=== PATIENT | female | born 1935 | race Caucasian/White ===

== ENCOUNTER → 2016-12-15 | Emergency (ER) | payer BC ==
[~2016-12-15] MED LIST: ETOMIDATE 20 MG/10 ML AMPUL IVPUSH ONE; LIDOCAINE 1%/EPI 1:100000 (50 ML MULTI DOSE VIAL) ONE; LIDOCAINE HCL/PF 1% SDV 5ML VIAL ONE; LORAZEPAM CARPU-JECT 2 MG/ML DISP.SYRIN IVPUSH ONE; LORAZEPAM CARPU-JECT 2 MG/ML DISP.SYRIN ONE; PROPOFOL 100 ML IVPB SCH; PROPOFOL 100 ML ONE; RAPID SEQUENCE INTUBATION KIT NR ONE; SUCCINYLCHOLINE CHLORIDE 200 MG/10 ML VIAL IVPUSH ONE
--- NOTE | 2016-12-15 23:19 | PDOC ---
History of Present Illness - General History Source: Patient, EMS, Family Exam Limitations: No Limitations - History of Present Illness Initial Comments: 12/15/16 23:28 Patient is a 81 year old female with a significant past medical history of hypertension, Parkinsons disease, TIA, DM2, constipation and hyperlipidemia who presents to the ED via EMS s/p fall. Patient was found at the bottom of 5-6 stairs lying in shattered glass. Patient takes baby aspirin daily. She reports back of the neck pain. She denies LOC, fever, chills, nausea, vomiting, blurry vision or headche. PSH:Right endarterectomy, lung surgery <Jelena Felipe - Last Filed: 12/16/16 01:39> <Latia Griffiths - Last Filed: 12/16/16 01:58> - General Stated Complaint: FALL Time Seen by Provider: 12/15/16 23:10 Past History <Jelena Felipe - Last Filed: 12/16/16 01:39> - Past Medical History CVA: Yes Diabetes: Yes (TYPE II) HTN: Yes Hypercholesterolemia: Yes - Surgical History Abdominal Surgery: No Appendectomy: No Cardiac Surgery: Yes (R. Carotid endarterctomy) Cholecystectomy: No Lung Surgery: (2012) Neurologic Surgery: No Orthopedic Surgery: No - Psycho/Social/Smoking Cessation Hx Anxiety: Yes Suicidal Ideation: No Smoking Status: No Smoking History: Never smoked Have you smoked in the past 12 months: No Number of Cigarettes Smoked Daily: 0 Hx Alcohol Use: No Drug/Substance Use Hx: No Substance Use Type: None Hx Substance Use Treatment: No <Latia Griffiths - Last Filed: 12/16/16 01:58> - Past Medical History Allergies/Adverse Reactions: Allergies Allergy/AdvReac Type Severity Reaction Status Date / Time Iodinated Contrast Media - Allergy Intermediate Nausea Verified 12/16/16 01:14 Oral and Home Medications: Ambulatory Orders Aspirin [ASA -] 81 mg PO DAILY #0 tab.chew 05/28/12 Mirtazapine [Remeron -] 7.5 mg PO HS #0 tablet 05/28/12 Multivitamins [Multivit ([facility] Formulary)] 1 udtab PO DAILY #0 tab 05/28/12 Carbidopa/Levodopa [Carbidopa-Levo 50-200 Tab SA] 0.5 tab PO TID 05/12/14 Furosemide [Lasix -] 20 mg PO ASDIR 05/12/14 Isosorbide Dinitrate [Isordil -] 10 mg PO BID 05/12/14 Nebivolol HCl [Bystolic] 5 mg PO DAILY 05/12/14 Nifedipine ER [Procardia XL -] 30 mg PO DAILY 05/12/14 Simvastatin [Zocor -] 20 mg PO HS 05/12/14 Glipizide 5 mg PO DAILY 06/16/15 Ibuprofen [Advil -] 400 mg PO QID PRN 06/18/15 Ropinirole HCl [Requip -] 0.5 mg PO QID 06/18/15 Bisacodyl Suppository [Dulcolax Suppository -] 10 mg RC ONCE #1 supp.rect Docusate Sodium [Colace] 100 mg PO TID #90 capsule 04/11/16 Magnesium Citrate [Citrate of Magnesia] 300 ml PO ONCE #1 bottle 04/11/16 Polyethylene Glycol 3350 [Miralax 255 gm Btl] 17 gm PO DAILY PRN #1 bottle 04/11 Sitagliptin Phosphate [Januvia] 100 mg PO DAILY 12/15/16 Review of Systems - Review of Systems Able to Perform ROS?: Yes Comments:: 12/15/16 23:29 CONSTITUTIONAL: Absent: fever, chills, diaphoresis, generalized weakness, malaise, loss of appetite HEENT: Present: head bleeding Absent: rhinorrhea, nasal congestion, throat pain, throat swelling, difficulty swallowing, mouth swelling, ear pain, eye pain, visual Changes CARDIOVASCULAR: Absent: chest pain, syncope, palpitations, irregular heart rate, lightheadedness , peripheral edema RESPIRATORY: Absent: cough, shortness of breath, dyspnea with exertion, orthopnea, wheezing, stridor, hemoptysis GASTROINTESTINAL: Absent: abdominal pain, abdominal distension, nausea, vomiting, diarrhea, constipation, melena, hematochezia GENITOURINARY: Absent: dysuria, frequency, urgency, hesitancy, hematuria, flank pain, genital pain MUSCULOSKELETAL: Present: neck pain Absent: myalgia, arthralgia, joint swelling SKIN: Absent: rash, itching, pallor HEMATOLOGIC/IMMUNOLOGIC: Absent: easy bleeding, easy bruising, lymphadenopathy, frequent infections ENDOCRINE: Absent: unexplained weight gain, unexplained weight loss, heat intolerance, cold intolerance NEUROLOGIC: Absent: headache, focal weakness or paresthesias, dizziness, unsteady gait, seizure, mental status changes, bladder or bowel incontinence PSYCHIATRIC: Absent: anxiety, depression, suicidal or homicidal ideation, hallucinations. <Jelena eFlipe - Last Filed: 12/16/16 01:39> *Physical Exam - Physical Exam Comments: 12/16/16 00:27 GENERAL: +Initially the patient was awake and verbal. She was awake alert and appropriate. But then became totally unresponsive. HEENT: +significant scalp laceration, +head bandaged, hair clotted with blood. +3 cm deep linear lac temporal area with arterial pumper wound quickly closed with 3 nylon sutures. Upon arrival PERRLA, EOMI. NECK: +presented in C collar. Supple. Full ROM. No JVD. Carotid pulses 2+ and symmetric, without bruits. No thyromegaly. No lymphadenopathy. CARDIOVASCULAR: Regular rate and rhythm. No murmurs, rubs, or gallops. Distal pulses are 2+ and symmetric. PULMONARY: No evidence of respiratory distress. Lungs clear to auscultation bilaterally. No wheezing, rales or rhonchi. ABDOMINAL: Soft. Non-tender. Non-distended. No rebound or guarding. No organomegaly. Normoactive bowel sounds. MUSCULOSKELETAL +No obvious extremity deformity upon arrival, +significant scalp hemorrhage right temporal area. Normal range of motion at all joints. No CVA tenderness. EXTREMITIES: +pedal pulses present in all 4 extremities. No cyanosis. No clubbing. No edema. No calf tenderness. SKIN: Warm and dry. Normal capillary refill. No rashes. No jaundice. NEUROLOGICAL: Alert, awake and alert upon arrival. Patient then became totally unresponsive. <Jelena Felipe - Last Filed: 12/16/16 01:39> ED Treatment Course - LABORATORY CBC & Chemistry Diagram: 12/16/16 00:22 12/16/16 00:22 - RADIOLOGY Radiology Studies Ordered: 12/16/16 00:54 THIS IS A PRELIMINARY REPORT FROM IMAGING [employer]NAGER [employer] EXAM: Cervical spine without contrast COMPARISON: CT cervical spine June 16, 2015 FINDINGS: Negative for cervical fracture or malalignment. Enlarged thyroid. THIS DOCUMENT HAS BEEN ELECTRONICALLY SIGNED Antonio Wetson MD 12/16/16 00:56 THIS IS A PRELIMINARYREPORT FROM IMAGING MANAGER [employer]AGEMENT FINDINGS: Age-related involutional changes. 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 No visible acute infarct. Osseous structures are intact. However, there is minimal hyperdense material along the right frontal parafalcine region along and near the cortex. This was not present on the June 16, 2015 scan and probably represents a tiny right frontal hemorrhagic cortical contusion along with a minimal amount of subarachnoid blood. (Hyperdensities best seen on axial image 23/30, sagittal image 79/159, and coronal image 49/200) THIS DOCUMENT HAS BEEN ELECTRONICALLY SIGNED Antonio Weston MD <Jelena Felipe - Last Filed: 12/16/16 01:39> - LABORATORY CBC & Chemistry Diagram: 12/16/16 00:22 12/16/16 00:22 <Latia Griffiths - Last Filed: 12/16/16 01:58> Medical Decision Making - Critical Care Time Total Critical Care Time (minutes): 60 Critical Care Statement: The care of this patient involved high complexity decision making to prevent further life threatening deterioration of the patient 's condition and/or to evalute & treat vital organ system(s) failure or risk of failure. - Medical Decision Making 12/16/16 00:10 Initially the patient was awake alert and appropriate. Patient came in with superficial arterial bleed on scalp after being found by family at the bottom of the stairs. 3 nylon sutures were quickly placed During the procedure patient became pale and totally unresponsive Patient did not lose her VS, but to protected her airway she was intubated Code started at 11:39 PM Patient was Ambu bagged at 11:41 PM VS: BP 126/56 HR 73 11:46 20 mg of Etomidate pushed 11:49 100 mg of Succinylcholine pushed at 11:49 VS: BP 126/56 HR 73 11:51 Successfully intubated 11:52 VS: BP 109/63 HR 78 11:55 12/16/16 01:[address] was discussed with family and explained that the patient will need to be transferred to [facility]. Family refused [facility] transfer and requested [facility] Transfer[facility] 12/16/16 01:11 [facility] was contacted at 1:03 AM. Patient was accepted at [facility] by Dr. Adán Santos and will go to trauma bay. Awaiting ALS transfer. 12/16/16 01:34 ALS transportation arrives for transfer. <Jelena Felipe - Last Filed: 12/16/16 01:39> - Critical Care Time Total Critical Care Time (minutes): 60 Critical Care Statement: The care of this patient involved high complexity decision making to prevent further life threatening deterioration of the patient 's condition and/or to evalute & treat vital organ system(s) failure or risk of failure. - Medical Decision Making 12/16/16 01:45 81 yo female BIBA with c collar who was found at bottom of her stairs at home -initially she was responsive but became unresponsive and was intubated to protect her airway -also heavy arterial "pumper" on rt temporal area quickly sutured to stop brisk scalp bleed pt intubated w 7.5 ETT with positive end tital co2 , placed 23 cm at the lips,b/ l breath sounds,cxr done,pt's pulse ox 100% ct head + small right frontal hemorrhagic cortical contusion along with a minimal amount of subarachnoid blood ct scan of cervical spine was NEGATIVE for fracture or subluxation labs reveals vbh=063, leukocytosis 18.6 ,hbg=10, troponin normal - -family request pt be transferred to [facility]. Spoke w neurosurgeon DR Adán Santos who accepted the case to be transferred to trauma icu <Latia Griffiths - Last Filed: 12/16/16 01:58> *DC/Admit/Observation/Transfer - Attestations Scribe Attestion: 12/15/16 23:31 Documentation prepared by GLORIA Haider, acting as medical office representative for Latia Griffiths MD. <Jelena Felipe - Last Filed: 12/16/16 01:39> - Transfer to Acute Care Facility Receiving Facility: [facility]. Accepting Physician:: DR ADÁN SANTOS neurosurgery <Latia Griffiths - Last Filed: 12/16/16 01:58> Diagnosis at time of Disposition: Subarachnoid bleed, Fall (on) (from) other stairs and steps, initial encounter Syncope Qualifiers: Syncope type: unspecified Qualified Code(s): R55 - Syncope and collapse Laceration of scalp Qualifiers: Encounter type: initial encounter Qualified Code(s): S01.01XA - Laceration without foreign body of scalp, initial encounter - Discharge Dispostion Disposition: TRANSFER ACUTE CARE/OTHER HOSP - Referrals Referrals: Kyle Arias MD [Primary Care Provider] -
[2016-12-15 23:33] VITALS: TEMP 97.7; BMI 28.3
[2016-12-16 01:06] LABS: BASOPHIL 0.5 % (0-2.0); EOSINOPHIL 2.1 % (0-4.5); MCHC 31.9 g/dl (32.0-36.0); MEAN CELL VOLUME 81.3 fl (80-96); MEAN PLT VOLUME 8.6 fl (7.5-11.1); NEUTROPHILS 80.3 % (42.8-82.8); PLATELET COUNT 236 K/MM3 (134-434); RDW 15.1 % (11.6-15.6); WHITE BLOOD COUNT 18.6 K/mm3 (4.0-10.0)
[2016-12-16 01:19] VITALS: BP 112/56; PULSE 62
[2016-12-16 01:28] LABS: ALBUMIN 3.5 g/dl (3.4-5.0); ANION GAP 13 (8-16); BILIRUBIN,TOTAL 0.3 mg/dL (0.2-1.0); CALCIUM 8.8 mg/dL (8.5-10.1); CO2 24 mmol/L (21-32); CREATININE 0.8 mg/dL (0.55-1.02); GLUCOSE,RANDOM 188 mg/dL (74-106); SGOT/AST 20 U/L (15-37); SGPT/ALT 18 U/L (12-78); TOT PROT 6.2 g/dl (6.4-8.2)
[2016-12-16 01:31] LABS: ALK PHOS 57 U/L (45-117); TROPONIN I < 0.02 ng/ml (0.00-0.05)
[2016-12-16 01:38] LABS: INR 1.07 (0.82-1.09); PROTHROMBIN TIME (PATIENT) 11.8 SEC (9.98-11.88)
--- NOTE | 2016-12-16 02:23 | PDOC ---
*Physical Exam - Vital Signs Last Vital Signs Temp Pulse Resp BP Pulse Ox 97.7 F 62 14 112/56 100 12/15/16 23:28 12/16/16 01:18 12/16/16 01:18 12/16/16 01:18 12/16/16 01:18 ED Treatment Course - LABORATORY CBC & Chemistry Diagram: 12/16/16 00:22 12/16/16 00:22 - ADDITIONAL ORDERS Additional order review: Laboratory Results 12/16/16 12/16/16 00:22 00:22 INR 1.07 Sodium 140 Potassium 4.0 Chloride 103 Carbon Dioxide 24 Anion Gap 13 BUN 28 H Creatinine 0.8 Creat Clearance w eGFR > 60 Random Glucose 188 H D Calcium 8.8 Total Bilirubin 0.3 D AST 20 D ALT 18 D Alkaline Phosphatase 57 D Creatine Kinase 99 Troponin I < 0.02 Total Protein 6.2 L Albumin 3.5 12/16/16 00:22 RBC 3.85 MCV 81.3 MCHC 31.9 L RDW 15.1 MPV 8.6 Neutrophils % 80.3 D Lymphocytes % 13.3 D Monocytes % 3.8 Eosinophils % 2.1 D Basophils % 0.5 - RADIOLOGY Radiology Studies Ordered: Category Date Time Status CERVICAL SPINE CT W/O CONTR [CT] Stat CT Scan 12/16/16 00:[address] WITHOUT CONTRAST [CT] Stat CT Scan 12/16/16 00:00 Taken CHEST X-RAY PORTABLE* [RAD] Stat Radiology 12/16/16 00:08 Taken - Medications Given in the ED: ED Medications Discontinued Medications Generic Name Dose Route Start Last Admin Trade Name Freq PRN Reason Stop Dose Admin Etomidate 20 mg 12/16/16 01:21 12/16/16 01:27 Amidate - IVPUSH 12/16/16 01:22 20 mg ONCE ONE Administration Lorazepam 2 mg 12/16/16 01:20 12/16/16 01:27 Ativan Injection - IVPUSH 12/16/16 01:21 2 mg ONCE ONE Administration Succinylcholine Chloride 95 mg 12/16/16 01:22 12/16/16 01:27 Quelicin - IVPUSH 12/16/16 01:23 95 mg ONCE ONE Administration Medical Decision Making - Medical Decision Making 12/16/16 02:22 PT DID RECEIVE [facility] ROUTE *DC/Admit/Observation/Transfer Diagnosis at time of Disposition: Subarachnoid bleed, Fall (on) (from) other stairs and steps, initial encounter Syncope Qualifiers: Syncope type: unspecified Qualified Code(s): R55 - Syncope and collapse Laceration of scalp Qualifiers: Encounter type: initial encounter Qualified Code(s): S01.01XA - Laceration without foreign body of scalp, initial encounter - Discharge Dispostion Disposition: TRANSFER ACUTE CARE/OTHER HOSP - Referrals Referrals: Kyle Arias MD [Primary Care Provider] - - Patient Instructions - Post Discharge Activity
--- NOTE | 2016-12-16 12:43 | EKG ---
Test Reason : Blood Pressure : / mmHG Vent. Rate : 052 BPM Atrial Rate : 052 BPM P-R Int : 196 ms QRS Dur : 086 ms QT Int : 476 ms P-R-T Axes : -16 047 067 degrees QTc Int : 442 ms POOR DATA QUALITY, INTERPRETATION MAY BE ADVERSELY AFFECTED SINUS BRADYCARDIA NONSPECIFIC T WAVE ABNORMALITY ABNORMAL ECG WHEN COMPARED WITH ECG OF 28-MAY-2012 13:50, NONSPECIFIC T WAVE ABNORMALITY NO LONGER EVIDENT IN INFERIOR LEADS Confirmed by TABATHA KHAN MD ([id number]) on 12/16/2016 12:43:44 PM Referred By: Confirmed By:TABATHA KHAN MD
== END | disposition short-term general hospital (02) ==
LOC: JER 23:08
PROC: 0BH17EZ Insertion of Endotracheal Airway into Trachea, Via Natural or Artificial Opening (ICD-10-PCS; principal; 2016-12-15)
PROC: 0JQ00ZZ Repair Scalp Subcutaneous Tissue and Fascia, Open Approach (ICD-10-PCS; 2016-12-15)
PROC: 3E033NZ Introduction of Analgesics, Hypnotics, Sedatives into Peripheral Vein, Percutaneous Approach (ICD-10-PCS; 2016-12-15)
PROC: 3E033GC Introduction of Other Therapeutic Substance into Peripheral Vein, Percutaneous Approach (ICD-10-PCS; 2016-12-15)
DX: S06.6X0A Traumatic subarachnoid hemorrhage without loss of consciousness, initial encounter (principal); R55 Syncope and collapse; S01.01XA Laceration without foreign body of scalp, initial encounter; I10 Essential (primary) hypertension; E11.9 Type 2 diabetes mellitus without complications; Z79.84 Long term (current) use of oral hypoglycemic drugs; E78.5 Hyperlipidemia, unspecified; E78.00 Pure hypercholesterolemia, unspecified; Z86.73 Personal history of transient ischemic attack (TIA), and cerebral infarction without residual deficits; W10.8XXA Fall (on) (from) other stairs and steps, initial encounter; Y93.89 Activity, other specified; Y92.018 Other place in single-family (private) house as the place of occurrence of the external cause
CPT/HCPCS: 36415; 70450-TC; 71010-TC; 72125-TC; 80053; 82550; 84484; 85025; 85610; 86850; 86900; 86901; 93005; 93010; 99284-25

== ENCOUNTER 2017-03-11 12:51 | Emergency (ER) | payer BC ==
[2017-03-11] MEDS ORDERED: OXYCODONE/APAP 5/325MG COMBO TABLET PO ONE ×2 (12:58→14:35)
[2017-03-11] MEDS ORDERED: OXYCODONE/APAP 5/325MG COMBO TABLET ONE ×2 (13:05→14:38)
--- NOTE | 2017-03-11 13:05 | PDOC ---
History of Present Illness - General History Source: Patient, Family Exam Limitations: No Limitations - History of Present Illness Initial Comments: 03/11/17 13:05 81 year old female c/ hx of parkinson's disease, HTN, HLD, distant hx of subdural hematoma (not on anticoagulants) p/w fall. The patient had a mechanical fall yesterday onto her right arm. Denies head trauma or LOC. Reports pain in RUE but mostly in her right wrist. Pain worsened and pt came in today. Denies numbness, weakness. <Ananda Mortensen - Last Filed: 03/11/17 15:19> <Leti Roland - Last Filed: 03/11/17 15:53> - General Chief Complaint: Injury Stated Complaint: RIGHT WRIST PAIN Time Seen by Provider: 03/11/17 12:57 Past History - Past Medical History CVA: Yes Diabetes: Yes (TYPE II) HTN: Yes Hypercholesterolemia: Yes - Surgical History Abdominal Surgery: No Appendectomy: No Cardiac Surgery: Yes (R. Carotid endarterctomy) Cholecystectomy: No Lung Surgery: (2012) Neurologic Surgery: No Orthopedic Surgery: No - Psycho/Social/Smoking Cessation Hx Anxiety: Yes Suicidal Ideation: No Smoking Status: No Smoking History: Never smoked Have you smoked in the past 12 months: No Number of Cigarettes Smoked Daily: 0 Hx Alcohol Use: No Drug/Substance Use Hx: No Substance Use Type: None Hx Substance Use Treatment: No <Ananda Mortensen - Last Filed: 03/11/17 15:19> <Leti Roland - Last Filed: 03/11/17 15:53> - Past Medical History Allergies/Adverse Reactions: Allergies Allergy/AdvReac Type Severity Reaction Status Date / Time Iodinated Contrast Media - Allergy Intermediate Nausea Verified 12/16/16 01:14 Oral and Home Medications: Ambulatory Orders Multivitamins [Multivit ([facility] Formulary)] 1 udtab PO DAILY #0 tab 05/28/12 Carbidopa/Levodopa [Carbidopa-Levo 50-200 Tab SA] 0.5 tab PO QID 05/12/14 Furosemide [Lasix -] 20 mg PO ASDIR PRN 05/12/14 Isosorbide Dinitrate [Isordil -] 15 mg PO DAILY 05/12/14 Nifedipine ER [Procardia XL -] 30 mg PO DAILY 05/12/14 Simvastatin [Zocor -] 20 mg PO HS 05/12/14 Ibuprofen [Advil -] 400 mg PO QID PRN 06/18/15 Ropinirole HCl [Requip -] 0.5 mg PO TID 06/18/15 Polyethylene Glycol 3350 [Miralax 255 gm Btl] 17 gm PO DAILY PRN #1 bottle 04/11 Sitagliptin Phosphate [Januvia] 100 mg PO DAILY 12/15/16 Docusate Sodium [Colace] 100 mg PO TID PRN 03/11/17 Glimepiride 2 mg PO DAILY PRN 03/11/17 Metformin HCl 500 mg PO BID 03/11/17 Metoprolol Tartrate 25 mg PO BID 03/11/17 Oxycodone HCl/Acetaminophen [Percocet 5-325 mg Tablet] 1 tab PO Q6H PRN #15 tablet MDD 4 03/11/17 Review of Systems - Review of Systems Able to Perform ROS?: Yes Comments:: 03/11/17 13:10 GENERAL/CONSTITUTIONAL: No fever, weakness. HEAD, EYES, EARS, NOSE AND THROAT: No change in vision. No ear pain or discharge. No sore throat. CARDIOVASCULAR: No chest pain or shortness of breath. RESPIRATORY: No cough, wheezing, or hemoptysis. GASTROINTESTINAL: No abdominal pain, nausea, vomiting, diarrhea, or decreased PO intolerance. GENITOURINARY: No dysuria, frequency, or change in urination. MUSCULOSKELETAL: Right arm pain, specifically at the right wrist. SKIN: No rash NEUROLOGIC: No headache, vertigo, loss of consciousness, or change in strength/ sensation. ENDOCRINE: No increased thirst. No abnormal weight change. HEMATOLOGIC/LYMPHATIC: No anemia, easy bleeding, or history of blood clots. ALLERGIC/IMMUNOLOGIC: No hives or skin allergy. <Ananda Mortensen - Last Filed: 03/11/17 15:19> *Physical Exam - Physical Exam Comments: 03/11/17 13:16 GENERAL: Awake, alert, and fully oriented, in no acute distress. HEAD: No signs of trauma EYES: PERRLA, EOMI, sclera anicteric, conjunctiva clear ENT: Auricles normal inspection, hearing grossly normal, nares patent, oropharynx clear without exudates. NECK: Normal ROM, supple, no lymphadenopathy, JVD, or masses LUNGS: Breath sounds equal, clear to auscultation bilaterally. No wheezes, and no crackles HEART: Regular rate and rhythm, normal S1 and S2, no murmurs, rubs or gallops ABDOMEN: Soft, nontender, normoactive bowel sounds. No guarding, no rebound. No masses EXTREMITIES: FROM Right shoulder and right elbow with minimal discomfort elicited on palpation of R elbow and shoulder. Edema and swelling appreciated at distal wrist with tenderness to palpation throughout distal wrist. (radial and ulnar). 2+ radial pulse. able to move all fingers. sensation intact throughout. <2 sec cap refill. NEUROLOGICAL: Cranial nerves II through XII grossly intact. Normal speech, normal gait SKIN: Warm, Dry, normal turgor, no rashes or lesions noted. <Ananda Mortensen - Last Filed: 03/11/17 15:19> - Vital Signs Last Vital Signs Temp Pulse Resp BP Pulse Ox 98.4 F 78 16 152/70 98 03/11/17 12:52 03/11/17 12:52 03/11/17 12:52 03/11/17 12:52 03/11/17 12:52 <Leti Roland - Last Filed: 03/11/17 15:53> Procedures - Splinting Splint Location: Right: Wrist Pre-Proc Neuro Vasc Exam: normal Hand-Made Type: orthoglass Splint Type: Yes: Sugar Tong Post-Proc Neuro Vasc Exam: normal Geovanny Bandage: 4" Sling: Yes Complications: No <Ananda Mortensen - Last Filed: 03/11/17 15:19> ED Treatment Course - RADIOLOGY Radiology Studies Ordered: Category Date Time Status ELBOW-RIGHT [RAD] Stat Radiology 03/11/17 12:58 Ordered SHOULDER-RIGHT [RAD] Stat Radiology 03/11/17 12:58 Ordered WRIST- RIGHT [RAD] Stat Radiology 03/11/17 12:58 Ordered <Ananda Mortensen - Last Filed: 03/11/17 15:19> - RADIOLOGY Radiograph Interpretation: 03/11/17 15:53 EXAM#: TYPE/EXAM: RESULT: [id number] RAD/WRIST- RIGHT Right wrist: HISTORY: Status post fall. Pain. 3 views of the right wrist are provided. There is a horizontal impacted fracture of the distal radius. There may be a vertical component extending to the articular surface. Small calcific fragments are seen adjacent to the ulnar styloid indeterminate age, which may be chronic in nature. No jessica dislocation is seen. There is question of mild widening of the scapholunate distance and DISI deformity. IMPRESSION: Fracture of the distal radius and additional findings as above. Reported By: Eddi Cifuentes MD 03/11/17 1548 EXAM#: TYPE/EXAM: RESULT: [id number] RAD/SHOULDER-RIGHT Shoulder: HISTORY: Status post fall. Pain. 2 images of the right shoulder are provided. Positioning is suboptimal and this is a limited study. Humeral head appears somewhat high in position raising possibility of rotator cuff tear. No definite acute fracture or dislocation is seen. IMPRESSION: Suboptimal exam. No acute fracture seen. See above. Reported By: Eddi Cifuentes MD 03/11/17 1549 EXAM#: TYPE/EXAM: RESULT: [id number] RAD/ELBOW-RIGHT Elbow: HISTORY: Status post fall. Pain. 3 views of the right elbow are provided. No acute fracture or dislocation is seen. There are hypertrophic changes at the radial tuberosity with cystic foci. There is slight enthesophyte formation at the region of the lateral epicondyle. There is osteopenia. IMPRESSION: No acute fracture seen. See above. Reported By: Eddi Cifuentes MD 03/11/17 [id number] - Medications Given in the ED: ED Medications Discontinued Medications Generic Name Dose Route Start Last Admin Trade Name Freq PRN Reason Stop Dose Admin Oxycodone/Acetaminophen 1 combo 03/11/17 12:58 03/11/17 13:07 Percocet 5/325 - PO 03/11/17 12:59 1 combo ONCE ONE Administration Oxycodone/Acetaminophen 1 combo 03/11/17 14:35 03/11/17 14:39 Percocet 5/325 - PO 03/11/17 14:36 1 combo ONCE ONE Administration <Leti Roland - Last Filed: 03/11/17 15:53> Medical Decision Making - Medical Decision Making 03/11/17 13:21 R/o fracture. Right wrist, elbow and shoulder xray Pain control Reassess. 03/11/17 15:13 Xray reviewed, pending official read. R distal radius fracture. Elbow and Shoulder xray with no acute findings. Pt placed in a sugartong splint and sling. Neurovascularly intact. Pt would like to go home prior to official reads. The patient and pt's son in law will call back. They have seen DR. Mayo/Gladys before for her left wrist surgery. They would like to go back. Pt will go home with family. I discussed the physical exam findings, ancillary test results and final diagnoses with the patient. I answered all of the patient's questions. The patient was satisfied with the care received and felt comfortable with the discharge plan and treatment plan. The patient will call their primary care physician within 24 hours to arrange follow-up and will return to the Emergency Department with any new, persistant or worsening symptoms. <Ananda Mortensen - Last Filed: 03/11/17 15:19> *DC/Admit/Observation/Transfer - Discharge Dispostion Admit: No <Ananda Mortensen - Last Filed: 03/11/17 15:19> <Leti Roland - Last Filed: 03/11/17 15:53> Diagnosis at time of Disposition: Distal radius fracture, right Qualifiers: Encounter type: initial encounter Fracture type: closed Fracture morphology: unspecified fracture morphology Qualified Code(s): S52.501A - Unspecified fracture of the lower end of right radius, initial encounter for closed fracture - Discharge Dispostion Disposition: HOME Condition at time of disposition: Stable - Prescriptions Prescriptions: Oxycodone HCl/Acetaminophen [Percocet 5-325 mg Tablet] 1 tab PO Q6H PRN #15 tablet MDD 4 PRN Reason: Pain - Referrals Referrals: Kyle Arias MD [Primary Care Provider] - Carter Mayo MD [Staff Physician] - Earl Wyatt MD [Staff Physician] - Adam Coronado MD [Staff Physician] - - Patient Instructions Printed Discharge Instructions: How to Use a Sling, DI for Wrist Fracture Additional Instructions: Your preliminary read on the wrist xray shows a distal radius fracture. Please wear the splint at all times. When you shower, cover the splint with a bag. Elevate the hand as much as you can to decrease the swelling. Ice as needed for discomfort. 400 mg ibuprofen every 6 hours as needed for pain. For additional relief, take a tablet of percocet every 6 hours as needed for pain. This medication may make you drowsy so please do not drink or drive. It is very important that you follow up with a hand surgeon. Call to schedule an appointment. Please call [phone] for the official read of the xrays.
[2017-03-11 13:12] VITALS: BP 152/70; PULSE 78; TEMP 98.4; BMI 27.6
== END 2017-03-11 15:26 | disposition home or self-care (01) ==
LOC: FER 12:51
PROC: 2W3EX1Z Immobilization of Right Hand using Splint (ICD-10-PCS; principal; 2017-03-11)
DX: S52.501A Unspecified fracture of the lower end of right radius, initial encounter for closed fracture (principal); W18.39XA Other fall on same level, initial encounter; Y93.9 Activity, unspecified; Y92.9 Unspecified place or not applicable; I10 Essential (primary) hypertension; E78.5 Hyperlipidemia, unspecified; Z87.820 Personal history of traumatic brain injury; G20 Parkinson's disease; E11.9 Type 2 diabetes mellitus without complications
CPT/HCPCS: 73030-TC-RT; 73070-TC-RT; 73110-TC-RT; 99283-25

== ENCOUNTER 2017-07-13 07:54 | Day surgery (SDC) | payer BC ==
[2017-07-12 15:10] VITALS: BMI 28.1
[2017-07-13 09:30] VITALS: TEMP 98.4
[2017-07-13 09:54] VITALS: PULSE 71
[2017-07-13 11:12] VITALS: BP 146/61
--- NOTE | 2017-07-14 17:27 | PATH ---
Surgical Pathology Report Patient Name: LUZ GALVEZ [facility]. Rec. #: [id number] /Age/Gender: 1935 (Age: 81) / F Account: [id number] Location: [facility]-ENDOSCOPY Taken: 07/13/2017 Received: 07/13/2017 Reported: 07/14/2017 Physicians: Tor Herrera M.D. Specimen(s) Received A: BX BODY OF STOMACH B: SIGMOID POLYP Clinical History Iron deficiency anemia Atrophic gastritis, colon polyp, melanosis coli Final Diagnosis A. STOMACH, BODY, BIOPSY: GASTRIC BODY MUCOSA WITH CHRONIC ACTIVE GASTRITIS, SEVERE. IMMUNOHISTOCHEMICAL STAIN FOR H. PYLORI IS POSITIVE (FEW). INTESTINAL METAPLASIA IDENTIFIED. NO DYSPLASIA IDENTIFIED. B. SIGMOID, POLYP, BIOPSY: TUBULAR ADENOMA. Electronically Signed Jaymie Espinoza M.D. Gross Description A. Received in formalin, labeled "biopsy body of stomach" are 3 carter, irregular portions of soft tissue ranging from 0.2-0.4 cm. in greatest dimension. The specimens are submitted in toto in one cassette. B. Received in formalin, labeled "sigmoid polyp" is a carter, polypoid portion of soft tissue measuring 0.7 cm. in greatest dimension. The specimen is submitted in toto in one cassette. 07/13/201707/13/2017
== END 2017-07-13 11:12 | disposition home or self-care (01) ==
LOC: JASU-ENDO 07:54
PROVIDERS: ATTEND Internal Medicine Gastroenterology
PROC: 0DBN8ZX Excision of Sigmoid Colon, Via Natural or Artificial Opening Endoscopic, Diagnostic (ICD-10-PCS; 2017-07-13)
PROC: 0DB68ZX Excision of Stomach, Via Natural or Artificial Opening Endoscopic, Diagnostic (ICD-10-PCS; principal; 2017-07-13 08:45)
DX: D50.9 Iron deficiency anemia, unspecified (principal); D12.5 Benign neoplasm of sigmoid colon; K63.89 Other specified diseases of intestine; K29.50 Unspecified chronic gastritis without bleeding; R13.10 Dysphagia, unspecified
CPT/HCPCS: 88305-TC; 88342-TC

== ENCOUNTER 2019-07-23 14:15 | Emergency (ER) | payer BC ==
[2019-07-23 14:25] VITALS: BMI 31.4
[2019-07-23] MEDS ORDERED: ACETAMINOPHEN 325 MG TABLET (FP) PO ONE (14:58)
[2019-07-23] MEDS ORDERED: ACETAMINOPHEN 325 MG TABLET (FP) ONE (15:26)
[2019-07-23 16:01] LABS: BASO % 0.9 % (0-2.0); EOS % 3.3 % (0-4.5); HEMATOCRIT 37.1 % (32.4-45.2); HEMOGLOBIN 11.5 GM/dL (10.7-15.3); LYMPH % 33.3 % (8-40); MCH 26.6 pg (25.7-33.7); MCHC 31.1 g/dl (32.0-36.0); MEAN CELL VOLUME 85.7 fl (80-96); MEAN PLT VOLUME 8.3 fl (7.5-11.1); NEUT % 52.5 % (42.8-82.8); PLATELET COUNT 257 K/MM3 (134-434); RBC 4.34 M/mm3 (3.60-5.2); RDW 15.7 % (11.6-15.6)
[2019-07-23 16:02] LABS: EPI CELLS 5.1 /HPF (0-5/HPF); HYALINE CASTS 0 /lpf (0-8); PH,URINE 5.5 (5.0-8.0); URINE APPEARANCE CLOUDY; URINE BACTERIA 6865.5 /hpf (NEGATIVE); URINE BILIRUBIN NEGATIVE (NEGATIVE); URINE COLOR YELLOW; URINE GLUCOSE (UA) NEGATIVE (NEGATIVE); URINE KETONE NEGATIVE (NEGATIVE); URINE LEUK ESTERASE NEGATIVE (NEGATIVE); URINE NITRITE POSITIVE (NEGATIVE); URINE PROTEIN NEGATIVE (NEGATIVE); URINE UROBILINOGEN 0.2 mg/dL (0.2-1.0); URINE WBC 1 /hpf (0-5)
--- NOTE | 2019-07-23 16:05 | PDOC ---
Documentation entered by Trav Arredondo SCRIBE, acting as scribe for Silvia Valdez MD. Silvia Valdez MD: This documentation has been prepared by the Arnulfo luna Daniel, SCRIBE, under my direction and personally reviewed by me in its entirety. I confirm that the documentation accurately reflects all work, treatment, procedures, and medical decision making performed by me. History of Present Illness - General Chief Complaint: Pain Stated Complaint: PAIN Time Seen by Provider: 07/23/19 14:44 History Source: Patient, Family Exam Limitations: No Limitations - History of Present Illness Initial Comments: 07/23/19 15:03 The patient is an 83 year old female with a past medical history of HTN, TIA, diabetes, Parkinsons disease, chronic constipation, chronic UTIs, and spinal spondylosis here today for evaluation of generalized weakness and general not feeling well. As per the family, the patient is noncompliant with medications and refuses to walk or exercise for PT for management of her parkinsons, non compliant with carbidopa. Family believes that the patient just wants to be in the [place] [facility] with her . As per the patient she feels generally weak all over, has lower back pain, neck pain, headache, burning with urination, SOB/ chest discomfort and cough. unclear how long this has been occurring. no trauma. family also concerned that she purposely does not take medications and not follow physician instructions Denies syncope. Denies nausea, vomiting, diarrhea, abdominal pain. Allergies: iodinated contrast media PCP: Kyle Arias Neuro: Estuardo Franks 07/23/19 16:54 Past History - Past Medical History Allergies/Adverse Reactions: Allergies Allergy/AdvReac Type Severity Reaction Status Date / Time Iodinated Contrast Media Allergy Intermediate Nausea Verified 12/16/16 01:14 Home Medications: Ambulatory Orders Carbidopa/Levodopa [Carbidopa-Levo 50-200 Tab SA] 0.5 tab PO HS 05/12/14 Nifedipine ER [Procardia XL -] 30 mg PO DAILY 05/12/14 Simvastatin [Zocor -] 20 mg PO HS 05/12/14 Ropinirole HCl [Requip -] 0.5 mg PO QID 06/18/15 Sitagliptin Phosphate [Januvia] 100 mg PO DAILY 12/15/16 metFORMIN HCL [Metformin HCl] 500 mg PO TID 03/11/17 Aspirin 81 mg PO DAILY 07/23/19 Carbidopa/Levodopa [Carbidopa-Levodopa 25-250 Tab] 1 tab PO BID 07/23/19 Carbidopa/Levodopa [Carbidopa-Levodopa 25-250 Tab] 1 tab PO BID 07/23/19 Duloxetine HCl [Cymbalta] 60 mg PO DAILY 07/23/19 Isosorbide Mononitrate 15 mg PO DAILY 07/23/19 Losartan Potassium 25 mg PO DAILY 07/23/19 Metoprolol Succinate 25 mg PO DAILY 07/23/19 Sulfamethoxazole/Trimethoprim [Bactrim Ds -] 1 tab PO BID #14 tablet 07/23/19 Tramadol HCl 100 mg PO DAILY 07/23/19 Anemia: Yes Asthma: No Cancer: No Cardiac Disorders: No CVA: Yes COPD: No CHF: No Dementia: No Diabetes: Yes (TYPE II) GI Disorders: No Disorders: No HTN: Yes Hypercholesterolemia: Yes Liver Disease: No Seizures: No Thyroid Disease: No - Surgical History Abdominal Surgery: No Appendectomy: No Cardiac Surgery: Yes (R. Carotid endarterctomy 2011) Cholecystectomy: No Lung Surgery: (2012) Neurologic Surgery: No Orthopedic Surgery: Yes (FRACTURED WRIST REPAIR 2015) - Psycho Social/Smoking Cessation Hx Smoking Status: No Smoking History: Never smoked Have you smoked in the past 12 months: No Number of Cigarettes Smoked Daily: 0 Hx Alcohol Use: Yes (RARELY) Drug/Substance Use Hx: No Substance Use Type: None Hx Substance Use Treatment: No Review of Systems - Review of Systems Able to Perform ROS?: Yes Comments:: 07/23/19 15:03 Constitutional: no fevers or chills. HEENT: no headache or dizziness. No congestion. No visual/hearing disturbances. CVS: no cp or syncope. Resp: +cough. no sob. Gastrointestinal: no abdominal pain, nausea, vomiting, diarrhea. Genitourinary: no urinary sx, hematuria. MUSCULOSKELETAL: +back pain. +leg pain. No joint pain and swelling. No neck pain. SKIN: no redness or skin changes, no discharge, no rash. No wounds. Hematologic: no easy bruising/bleeding. : +burning with urination. NEUROLOGIC: +generalized weakness. +headache. No dizziness, LOC or altered mental status. No numbness or tingling. Psych: no anxiety or depression Allergic/Immunologic: no allergies All other systems reviewed and negative, or as documented in HPI. *Physical Exam - Vital Signs Last Vital Signs Temp Pulse Resp BP Pulse Ox 98.1 F 57 L 20 135/59 L 100 07/23/19 14:22 07/23/19 14:22 07/23/19 14:22 07/23/19 14:22 07/23/19 14:22 - Physical Exam Comments: 07/23/19 15:05 General: Well appearing, awake and alert, NAD. HEENT: NCAT, PERRL, EOMI, clear conjunctiva, anicteric, moist mucus membranes, clear oropharynx, no oral lesions.. Neck: neck supple, FROM Resp: CTAB, normal and even respirations, no respiratory distress CVS: RRR, no murmurs, 2+ peripheral pulses throughout, no peripheral edema Abdomen: soft, NTND, no rebound or guarding. No CVAT. Back: nontender, normal inspection and ROM MSK: no edema, FRANCIS x4, ROM intact. No clubbing or cyanosis. normal bulk and tone. Extremities: no calf tenderness Neuro: alert, oriented appropriately; no focal neurologic deficits Psych: Calm and cooperative Skin: warm and well perfused, cap refill <2 sec, normal color Heart Score/ECG Review #1 ECG reviewed & interpreted by me at: 15:40 General ECG Interpretation: Sinus Rhythm, Normal Rate, Normal Intervals EKG normal sinus rhythm, no interval abnormalities, narrow QRS, ST and T wave segments and morphology normal. Nonspecific T wave abnormalities ED Treatment Course - LABORATORY CBC & Chemistry Diagram: 07/23/19 15:48 07/23/19 15:40 - ADDITIONAL ORDERS Additional order review: Laboratory Results 07/23/19 15:18 Urine Color Yellow Urine Appearance Cloudy Urine pH 5.5 Ur Specific [place] 1.013 Urine Protein Negative Urine Glucose (UA) Negative Urine Ketones Negative Urine Blood Negative Urine Nitrite Positive H Urine Bilirubin Negative Urine Urobilinogen 0.2 Ur Leukocyte Esterase Negative Urine WBC (Auto) 1 Urine Casts (Auto) 0 U Epithel Cells (Auto) 5.1 Urine Bacteria (Auto) 6865.5 07/23/19 15:48 RBC 4.34 MCV 85.7 MCHC 31.1 L RDW 15.7 H MPV 8.3 Neutrophils % 52.5 D Lymphocytes % 33.3 D Monocytes % 10.0 D Eosinophils % 3.3 Basophils % 0.9 - RADIOLOGY Radiology Studies Ordered: Category Date Time Status HEAD CT WITHOUT CONTRAST [CT] Stat CT Scan 07/23/19 14:59 Ordered CHEST X-RAY PORTABLE* [RAD] Stat Radiology 07/23/19 14:59 Ordered - Medications Given in the ED: ED Medications Discontinued Medications Generic Name Dose Route Start Last Admin Trade Name Markos PRN Reason Stop Dose Admin Acetaminophen 975 mg 07/23/19 14:58 07/23/19 15:20 Tylenol - PO 07/23/19 14:59 975 mg ONCE ONE Administration Medical Decision Making - Medical Decision Making 07/23/19 16:05 Vital Signs Temp Pulse Resp BP Pulse Ox 98.1 F 57 L 20 135/59 L 100 07/23/19 14:22 07/23/19 14:22 07/23/19 14:22 07/23/19 14:22 07/23/19 14:22 labs and lytes, UA, CT head and cxr eval for infection, ACS, arrhythmia, dehydration, CVA/HOG WORKER mass s.o to dr good pending workup, CTH, UA, and f/u with Dr Arias 07/23/19 16:52 07/24/19 15:34 Discharge - Discharge Information Problems reviewed: Yes Clinical Impression/Diagnosis: Parkinsons disease, Urinary tract infection Back pain Qualifiers: Back pain location: low back pain Chronicity: chronic Back pain laterality: unspecified Sciatica presence: without sciatica Qualified Code(s): M54.5 - Low back pain Condition: Stable Disposition: HOME - Additional Discharge Information Prescriptions: Sulfamethoxazole/Trimethoprim [Bactrim Ds -] 1 tab PO BID #14 tablet - Follow up/Referral Referrals: Kyle Arias MD [Primary Care Provider] - - Patient Discharge Instructions Patient Printed Discharge Instructions: DI for Urinary Tract Infection (UTI) Additional Instructions: please picker feeder your antibiotics at [facility] Please followup with your physician - Post Discharge Activity
[2019-07-23 16:44] LABS: ALBUMIN 3.8 g/dl (3.4-5.0); ALK PHOS 61 U/L (45-117); ANION GAP 6 MMOL/L (8-16); BILIRUBIN,TOTAL 0.3 mg/dL (0.2-1); BLOOD UREA NITROGEN 23.2 mg/dL (7-18); CALCIUM 8.9 mg/dL (8.5-10.1); CHLORIDE 109 mmol/L (98-107); CO2 25 mmol/L (21-32); CREATININE 0.5 mg/dL (0.55-1.3); GLUCOSE,RANDOM 69 mg/dL (74-106); POTASSIUM 4.4 mmol/L (3.5-5.1); SGOT/AST 20 U/L (15-37); SGPT/ALT 15 U/L (13-61); SODIUM 140 mmol/L (136-145); TOT PROT 6.6 g/dl (6.4-8.2)
[2019-07-23 16:49] LABS: URINE RBC 18.6 /hpf (0-4)
--- NOTE | 2019-07-23 17:01 | PDOC ---
*Physical Exam - Vital Signs Last Vital Signs Temp Pulse Resp BP Pulse Ox 98.1 F 57 L 20 135/59 L 100 07/23/19 14:22 07/23/19 14:22 07/23/19 14:22 07/23/19 14:22 07/23/19 14:22 ED Treatment Course - LABORATORY CBC & Chemistry Diagram: 07/23/19 15:48 07/23/19 15:40 - ADDITIONAL ORDERS Additional order review: Laboratory Results 07/23/19 07/23/19 15:40 15:18 Sodium 140 Potassium 4.4 Chloride 109 H Carbon Dioxide 25 Anion Gap 6 L BUN 23.2 H Creatinine 0.5 L Est GFR (CKD-EPI)AfAm 103.73 Est GFR (CKD-EPI)NonAf 89.50 Random Glucose 69 L Calcium 8.9 Total Bilirubin 0.3 AST 20 ALT 15 Alkaline Phosphatase 61 Creatine Kinase 104 Troponin I < 0.02 Total Protein 6.6 Albumin 3.8 Urine Color Yellow Urine Appearance Cloudy Urine pH 5.5 Ur Specific [place] 1.013 Urine Protein Negative Urine Glucose (UA) Negative Urine Ketones Negative Urine Blood Negative Urine Nitrite Positive H Urine Bilirubin Negative Urine Urobilinogen 0.2 Ur Leukocyte Esterase Negative Urine WBC (Auto) 1 Urine RBC (Auto) 18.6 Urine Casts (Auto) 0 U Epithel Cells (Auto) 5.1 Urine Bacteria (Auto) 6865.5 07/23/19 15:48 RBC 4.34 MCV 85.7 MCHC 31.1 L RDW 15.7 H MPV 8.3 Neutrophils % 52.5 D Lymphocytes % 33.3 D Monocytes % 10.0 D Eosinophils % 3.3 Basophils % 0.9 - Medications Given in the ED: ED Medications Discontinued Medications Generic Name Dose Route Start Last Admin Trade Name Freq PRN Reason Stop Dose Admin Acetaminophen 975 mg 07/23/19 14:58 07/23/19 15:20 Tylenol - PO 07/23/19 14:59 975 mg ONCE ONE Administration Medical Decision Making - Medical Decision Making 07/23/19 17:00 This patient was signed out to me from Dr. Valdez and UA is pending 07/23/19 18:13 UA nitrite positive, wbc =1 bacteria 6865,negative leukocytes 07/23/19 19:19 CAT scan of the head did not show any acute intracranial pathology The case was discussed with Dr. Arias who recommended the patient be discharged home on antibiotics for UTI. He will follow-up with the cultures. 07/23/19 19:20 The decision to discharge the patient was discussed with the family and they agree and are comfortable with taking her home. Discharge - Discharge Information Problems reviewed: Yes Clinical Impression/Diagnosis: Parkinsons disease Back pain Qualifiers: Back pain location: low back pain Chronicity: chronic Back pain laterality: unspecified Sciatica presence: without sciatica Qualified Code(s): M54.5 - Low back pain; G89.29 - Other chronic pain Urinary tract infection Qualifiers: Urinary tract infection type: site unspecified Hematuria presence: without hematuria Qualified Code(s): N39.0 - Urinary tract infection, site not specified Condition: Stable - Admission No - Additional Discharge Information Prescriptions: Sulfamethoxazole/Trimethoprim [Bactrim Ds -] 1 tab PO BID #14 tablet - Follow up/Referral Referrals: Kyle Arias MD [Primary Care Provider] - - Patient Discharge Instructions Patient Printed Discharge Instructions: DI for Urinary Tract Infection (UTI) Additional Instructions: please olive picker your antibiotics at [facility] Please followup with your physician - Post Discharge Activity
[2019-07-23] MEDS ORDERED: CEFTRIAXONE 1,000 MG in DEXTROSE 5%-WATER - 50 ML IVPB STA (19:04)
[2019-07-23] MEDS ORDERED: CEFTRIAXONE 1 GM/50 ML BAG ONE (19:13)
[2019-07-23 19:57] VITALS: BP 154/66; PULSE 54; TEMP 97.9
--- NOTE | 2019-07-24 15:50 | EKG ---
Test Reason : Blood Pressure : / mmHG Vent. Rate : 057 BPM Atrial Rate : 057 BPM P-R Int : 168 ms QRS Dur : 088 ms QT Int : 430 ms P-R-T Axes : 065 -05 019 degrees QTc Int : 418 ms SINUS BRADYCARDIA SEPTAL INFARCT , AGE UNDETERMINED ABNORMAL ECG WHEN COMPARED WITH ECG OF 16-DEC-2016 01:20, T WAVE VARIATION Confirmed by KATE GUSTAFSON MD ([id number]) on 07/24/2019 3:50:15 PM Referred By: Confirmed By:KATE GUSTAFSON MD
== END 2019-07-23 19:47 | disposition home or self-care (01) ==
LOC: JER 14:15
DX: G20 Parkinson's disease (principal); N39.0 Urinary tract infection, site not specified; M54.89 Other dorsalgia; I10 Essential (primary) hypertension; E78.00 Pure hypercholesterolemia, unspecified; E11.9 Type 2 diabetes mellitus without complications; Z79.84 Long term (current) use of oral hypoglycemic drugs; Z86.73 Personal history of transient ischemic attack (TIA), and cerebral infarction without residual deficits; K59.04 Chronic idiopathic constipation; Z87.440 Personal history of urinary (tract) infections; Z91.041 Radiographic dye allergy status
CPT/HCPCS: 36415; 70450-TC; 71045-TC-FY; 80053; 81003; 82550; 84484; 85025; 87086; 87186; 93005; 93010; 96365; 99283-25

== ENCOUNTER 2020-06-10 14:19 | Inpatient (IN) | payer BC, OTHER ==
[2020-06-10] MEDS ORDERED: SODIUM CHLORIDE 1,000 ML IV STA ×2 (14:53→19:56)
[2020-06-10] MEDS ORDERED: ACETAMINOPHEN 1000 MG/100 ML VIAL (NON FORMULARY) IVPB ONE (14:53)
--- NOTE | 2020-06-10 14:57 | PDOC ---
History of Present Illness - General Chief Complaint: Chronic pain Stated Complaint: back pain Time Seen by Provider: 06/10/20 14:30 History Source: Patient Exam Limitations: No Limitations Past History - Travel History Traveled outside of the country in the last 30 days: No Close contact w/someone who was outside of country & ill: No - Medical History Allergies/Adverse Reactions: Allergies Allergy/AdvReac Type Severity Reaction Status Date / Time Iodinated Contrast Media Allergy Intermediate Nausea Verified 06/10/20 14:22 Home Medications: Ambulatory Orders Carbidopa/Levodopa [Carbidopa-Levo 50-200 Tab SA] 0.5 tab PO HS 05/12/14 Nifedipine ER [Procardia XL -] 30 mg PO DAILY 05/12/14 Simvastatin [Zocor -] 20 mg PO HS 05/12/14 Ropinirole HCl [Requip -] 0.5 mg PO QID 06/18/15 Sitagliptin Phosphate [Januvia] 100 mg PO DAILY 12/15/16 metFORMIN HCL [Metformin HCl] 500 mg PO TID 03/11/17 Aspirin 81 mg PO DAILY 07/23/19 Carbidopa/Levodopa [Carbidopa-Levodopa 25-250 Tab] 1 tab PO BID 07/23/19 Carbidopa/Levodopa [Carbidopa-Levodopa 25-250 Tab] 1 tab PO BID 07/23/19 Duloxetine HCl [Cymbalta] 60 mg PO DAILY 07/23/19 Isosorbide Mononitrate 15 mg PO DAILY 07/23/19 Losartan Potassium 25 mg PO DAILY 07/23/19 Metoprolol Succinate 25 mg PO DAILY 07/23/19 Sulfamethoxazole/Trimethoprim [Bactrim Ds -] 1 tab PO BID #14 tablet 07/23/19 Tramadol HCl 100 mg PO DAILY 07/23/19 Anemia: Yes Asthma: No Cancer: No Cardiac Disorders: No CVA: Yes COPD: No CHF: No Dementia: No Diabetes: Yes (TYPE II) GI Disorders: No Disorders: No HTN: Yes Hypercholesterolemia: Yes Liver Disease: No Seizures: No Thyroid Disease: No - Surgical History Abdominal Surgery: No Appendectomy: No Cardiac Surgery: Yes (R. Carotid endarterctomy 2011) Cholecystectomy: No Lung Surgery: (2012) Neurologic Surgery: No Orthopedic Surgery: Yes (FRACTURED WRIST REPAIR 2015) - Reproductive History Is Patient Now?: No - Psycho-Social/Smoking History Smoking Status: No Smoking History: Unknown if ever smoked Have you smoked in the past 12 months: No Number of Cigarettes Smoked Daily: 0 - Substance Abuse Hx (Audit-C & DAST Scrn) How often the patient has a drink containing alcohol: Never Score: In Men: 4 or > Positive; In Women: 3 or > Positive: 0 Screen Result (Pos requires Nsg. Audit-10AR): Negative In the last yr the pt used illegal drug/Rx for NonMed reason: No Score: Yes response is considered Positive: 0 Screen Result (Positive result requires Nsg. DAST-10): Negative Review of Systems - Review of Systems Able to Perform ROS?: Yes Comments:: 06/10/20 16:39 CONSTITUTIONAL: Present: Frequent falls/generalized weakness Absent: fever, chills, diaphoresis, malaise, loss of appetite HEENT: Absent: rhinorrhea, nasal congestion, throat pain, throat swelling, difficulty swallowing, mouth swelling, ear pain, eye pain, visual Changes CARDIOVASCULAR: Absent: chest pain, loss of consciousness, palpitations, irregular heart rate, peripheral edema RESPIRATORY: Absent: cough, shortness of breath, dyspnea with exertion, orthopnea, wheezing, stridor, hemoptysis GASTROINTESTINAL: Absent: abdominal pain, abdominal distension, nausea, vomiting, diarrhea, constipation, melena, hematochezia GENITOURINARY: Absent: dysuria, frequency, urgency, hesitancy, hematuria, flank pain, genital pain MUSCULOSKELETAL: Present: Back pain Absent: myalgia, arthralgia, joint swelling SKIN: Absent: rash, itching, pallor HEMATOLOGIC/IMMUNOLOGIC: Absent: easy bleeding, easy bruising, lymphadenopathy, frequent infections ENDOCRINE: Absent: unexplained weight gain, unexplained weight loss, heat intolerance, cold intolerance NEUROLOGIC: Absent: headache, focal weakness or paresthesias, dizziness, unsteady gait, seizure, mental status changes, bladder or bowel incontinence PSYCHIATRIC: Absent: anxiety, depression, suicidal or homicidal ideation, hallucinations. Is the patient limited Nicaraguan proficient: No *Physical Exam - Vital Signs Last Vital Signs Temp Pulse Resp BP Pulse Ox 98 F 78 16 145/74 99 06/10/20 14:22 06/10/20 14:22 06/10/20 14:22 06/10/20 14:22 06/10/20 14:22 - Physical Exam 06/10/20 16:40 GENERAL: Well developed, well nourished. Awake and alert. No acute distress. HEENT: Normocephalic, atraumatic. PERRLA, EOMI. No conjunctival pallor. Sclera are non- icteric. Moist mucous membranes. Oropharynx is clear. NECK: Supple. Full ROM. No lymphadenopathy. CARDIOVASCULAR: Regular rate and rhythm. No murmurs, rubs, or gallops. Distal pulses are 2+ and symmetric. PULMONARY: No evidence of respiratory distress. Lungs clear to auscultation bilaterally. No wheezing, rales or rhonchi. ABDOMINAL: Soft. Non-tender. Non-distended. No rebound or guarding. No organomegaly. Normoactive bowel sounds. MUSCULOSKELETAL Normal range of motion at all joints. No bony deformities or tenderness. (+) L CVA tenderness. EXTREMITIES: No cyanosis. No clubbing. No edema. No calf tenderness. SKIN: Warm and dry. Normal capillary refill. No rashes. No jaundice. NEUROLOGICAL: Alert, awake, appropriate. Cranial nerves 2-12 intact. No deficits to light [place] ch and temperature in face, upper extremities and lower extremities. No motor deficits in the in face, upper extremities and lower extremities. Normoreflexic in the upper and lower extremities. Normal speech. Toes are down-going bilaterally. Gait not observed. PSYCHIATRIC: Cooperative. Good eye contact. Appropriate mood and affect. ED Treatment Course - LABORATORY CBC & Chemistry Diagram: 06/10/20 15:00 06/10/20 15:00 - RADIOLOGY Radiology Studies Ordered: Category Date Time Status HEAD CT WITHOUT CONTRAST [CT] Stat CT Scan 06/10/20 14:54 Ordered Medical Decision Making - Medical Decision Making 06/10/20 16:43 The patient is an 84-year-old female past medical history of hypertension, Parkinson's disease, spinal stenosis, presents to the ER today for increasing falls and weakness at home. She states that she is so weak she cannot walk a long distance as she usually does. She notes that her back pain has also increased over the last week. Denies fevers, chills, hematuria, nausea and vomiting. A/P: Back pain On exam patient does have left-sided CVA tenderness in addition to her usual midline lumbar spine pain. Abdomen is soft nontender without rebound guarding or tenderness. Basic labs, EKG, urine ordered given back pain in the setting of weakness and frequent falls. Urine grossly positive at this time. Given you TIA in the setting of back pain likely pyelonephritis. 1 g ceftriaxone given per old sensitivities. Pending head CT, pending lumbar spine x-ray Admit to Dr Arias, patient fall risk at this time; agrees to [facility] admission. Discharge - Discharge Information Problems reviewed: Yes Clinical Impression/Diagnosis: Urinary tract infection Qualifiers: Urinary tract infection type: acute cystitis Hematuria presence: without hematuria Qualified Code(s): N30.00 - Acute cystitis without hematuria Back pain Qualifiers: Back pain location: back pain in other location Chronicity: acute Qualified Code(s): M54.9 - Dorsalgia, unspecified Condition: Stable - Admission Yes - Follow up/Referral Referrals: Kyle Arias MD [Primary Care Provider] - - Patient Discharge Instructions - Post Discharge Activity
[2020-06-10] MEDS ORDERED: ACETAMINOPHEN INJECTION 100 ML IVPB ONE (15:16)
[2020-06-10 15:39] LABS: BASO % 1.1 % (0-2.0); EOS % 2.9 % (0-4.5); HEMATOCRIT 38.5 % (32.4-45.2); HEMOGLOBIN 12.5 GM/dL (10.7-15.3); LYMPH % 24.9 % (8-40); MCH 27.5 pg (25.7-33.7); MCHC 32.6 g/dl (32.0-36.0); MEAN CELL VOLUME 84.5 fl (80-96); MEAN PLT VOLUME 8.4 fl (7.5-11.1); MONO % 8.4 % (3.8-10.2); NEUT % 62.7 % (42.8-82.8); PLATELET COUNT 329 K/MM3 (134-434); RBC 4.55 M/mm3 (3.60-5.2); RDW 14.5 % (11.6-15.6); WHITE BLOOD COUNT 6.7 K/mm3 (4.0-10.0)
--- OUTSIDE RECORDS SUMMARY | 2020-06-10 15:41 | XMS ---
:1935 Author Organization [facility] Support Name Relationship Address Phone RE Unavailable Unavailable Unavailable GREGOR OSUNA DAUGHTER [address] [place] [address] MARQUIS GALVEZ DAUGHTER [address] [facility] [place] [id number] Re-disclosure Warning The records that you are about to access may contain information from federally- assisted alcohol or drug abuse programs. If such information is present, then the following federally mandated warning applies: This information has been disclosed to you from records protected by federal confidentiality rules (42 CFR part 2). The federal rules prohibit you from making any further disclosure of this information unless further disclosure is expressly permitted by the written consent of the person to whom it pertains or as otherwise permitted by 42 CFR part 2. A general authorization for the release of medical or other information is NOT sufficient for this purpose. The Federal rules restrict any use of the information to criminally investigate or prosecute any alcohol or drug abuse patient.The records that you are about to access may contain highly sensitive health information, the redisclosure of which is protected by Article 27-F of the [facility] Public Health law. If you continue you may haveaccess to information: Regarding HIV / AIDS; Provided by facilities licensed or operated by the [facility] Office of Mental Health; or Provided by the [facility] Office for People With Developmental Disabilities. If such information is present, then the following [facility] mandated warning applies: This information has been disclosed to you from confidential records which are protected by state law. State law prohibits you from making any further disclosure of this information without the specific written consent of the person to whom it pertains, or as otherwise permitted by law. Any unauthorized further disclosure in violation of state law may result in a fine or skilled nursing sentence or both. A general authorization for the release of medical or other information is NOT sufficient authorization for further disclosure. Insurance Providers Payer name Policy type Policy ID Covered Covered constitution party's Policy P lay / Coverage constitution party ID relationship to Sun Inf ormation type sun BLUE CROSS [id number] [facility] [address]
[2020-06-10 15:47] LABS: INR 0.97 (0.83-1.09); PROTHROMBIN TIME (PATIENT) 11.4 SEC (9.7-13.0)
[2020-06-10 16:10] LABS: ALBUMIN 4.1 g/dl (3.4-5.0); BILIRUBIN,TOTAL 0.2 mg/dL (0.2-1); BLOOD UREA NITROGEN 22.1 mg/dL (7-18); CALCIUM 9.9 mg/dL (8.5-10.1); CREATININE 0.7 mg/dL (0.55-1.3); POTASSIUM 4.4 mmol/L (3.5-5.1); TOT PROT 7.5 g/dl (6.4-8.2)
[2020-06-10 16:13] LABS: EPI CELLS 8 /uL (0-25.1); HYALINE CASTS 2 /uL (0-3.1); URINE APPEARANCE CLOUDY; URINE BACTERIA >9,000 /uL (0-1359); URINE BILIRUBIN NEGATIVE (NEGATIVE); URINE COLOR YELLOW; URINE GLUCOSE (UA) NEGATIVE (NEGATIVE); URINE KETONE TRACE (NEGATIVE); URINE LEUK ESTERASE TRACE (NEGATIVE); URINE NITRITE POSITIVE (NEGATIVE); URINE PROTEIN NEGATIVE (NEGATIVE); URINE RBC 7 /uL (0-23.9); URINE UROBILINOGEN 0.2 mg/dL (0.2-1.0); URINE WBC 55 /uL (0-25.8)
[2020-06-10] MEDS ORDERED: CEFTRIAXONE 1,000 MG in DEXTROSE 5%-WATER - 50 ML IVPB ONE (16:28)
--- NOTE | 2020-06-10 17:13 | PDOC ---
*Physical Exam - Vital Signs Last Vital Signs Temp Pulse Resp BP Pulse Ox 98 F 78 16 145/74 99 06/10/20 14:22 06/10/20 14:22 06/10/20 14:22 06/10/20 14:22 06/10/20 14:22 - Physical Exam 06/10/20 17:10 awake alert no midline spinal tenderness paraspinal cervical spine tenderness. lungs clear bilat heart rrr no mrg abd soft nt nd ext wwp. FROM all four ext. atraumatic, NT. nuero alert oriented x 3. ED Treatment Course - LABORATORY CBC & Chemistry Diagram: 06/10/20 15:00 06/10/20 15:00 - ADDITIONAL ORDERS Additional order review: Laboratory Results 06/10/20 06/10/20 06/10/20 15:55 15:00 15:00 PT with INR 11.40 INR 0.97 Sodium 136 Potassium 4.4 Chloride 100 Carbon Dioxide 30 Anion Gap 6 L BUN 22.1 H Creatinine 0.7 Est GFR (CKD-EPI)AfAm 92.21 Est GFR (CKD-EPI)NonAf 79.56 Random Glucose 136 H Calcium 9.9 Total Bilirubin 0.2 AST 6 L ALT 15 Alkaline Phosphatase 88 Total Protein 7.5 Albumin 4.1 Urine Color Yellow Urine Appearance Cloudy Urine pH 5.0 Ur Specific [place] 1.018 Urine Protein Negative Urine Glucose (UA) Negative Urine Ketones Trace H Urine Blood Negative Urine Nitrite Positive H Urine Bilirubin Negative Urine Urobilinogen 0.2 Ur Leukocyte Esterase Trace Urine WBC (Auto) 55 Urine RBC (Auto) 7 Urine Casts (Auto) 2 U Epithel Cells (Auto) 8 Urine Bacteria (Auto) >9,000 06/10/20 15:00 RBC 4.55 MCV 84.5 MCHC 32.6 RDW 14.5 MPV 8.4 Neutrophils % 62.7 Lymphocytes % 24.9 D Monocytes % 8.4 Eosinophils % 2.9 Basophils % 1.1 - Medications Given in the ED: ED Medications Discontinued Medications Generic Name Dose Route Start Last Admin Trade Name Freq PRN Reason Stop Dose Admin Acetaminophen 1,000 mg 06/10/20 14:53 06/10/20 15:28 Ofirmev Injection - IVPB 06/10/20 14:54 1,000 mg ONCE ONE Administration Medical Decision Making - Medical Decision Making 09/14/20 17:10 84 yo F h/o parkinsons, spinal stenosis, htn hld here with c/o; back pain frequent falls. states she has had many falls at home over last few weeks. most recent fall was 3 days ago, states she tripped on a step. unclear history. does c/o dysuria, urgency and frequency. no n/v no fever. pain is upper and lower back. has been ambulating with extreme difficulty and today states she c ould not walk due to pain. on exam, pt with mostly paraspinal tenderness cervical spine region, flank tenderness. plan xray l/s spine, ct head, c spine labs ua r/o uti or pyelo. as pt can not walk, will require admission for pt/ ot assessment, home safety eval. 06/10/20 17:19 labs returned pt with uti/ pyelo. given abx. seen and examined in conjunction with JEANINE Oden, agree with her assessment and plan. Discharge - Discharge Information Problems reviewed: Yes Clinical Impression/Diagnosis: Urinary tract infection Qualifiers: Urinary tract infection type: acute cystitis Hematuria presence: without hematuria Qualified Code(s): N30.00 - Acute cystitis without hematuria Back pain Qualifiers: Back pain location: back pain in other location Chronicity: acute Qualified Code(s): M54.9 - Dorsalgia, unspecified Condition: Stable - Follow up/Referral Referrals: Kyle Arias MD [Primary Care Provider] - - Patient Discharge Instructions - Post Discharge Activity
--- OUTSIDE RECORDS SUMMARY | 2020-06-10 18:38 | XMS ---
:1935 Author Organization [facility] Support Name Relationship Address Phone RE, RETIRED Unavailable Unavailable Unavailable RE Unavailable Unavailable Unavailable GREGOR OSUNA DAUGHTER [address] [place] [address] MARQUIS GALVEZ DAUGHTER [address] [facility] [place] [address] Re-disclosure Warning The records that you are [...] is protected by Article 27-F of the [facility] Public Health law. If you continue you may haveaccess to information: Regarding HIV / AIDS; Provided by facilities licensed or operated by the [facility] Office of Mental Health; or Provided by the [facility] Office for People With Developmental Disabilities. If such information is present, then the following [facility] mandated warning applies: This information has been [...] law may result in a fine or fdc sentence or both. A general authorization for the release of medical or other information is NOT sufficient authorization for further disclosure. Insurance Providers Payer name Policy type Policy ID Covered Covered constitution party's Policy P lay / Coverage constitution party ID relationship to Sun Inf ormation type sun BLUE CROSS [id number] [facility]
[2020-06-10] MEDS ORDERED: CEFTRIAXONE 1 GM/50 ML BAG ONE (18:47)
[2020-06-10] MEDS: POLYETHYLENE GLYCOL 3350 119 GM BTL PO SCH (22:05)
[2020-06-10] MEDS ORDERED: CARBIDOPA/LEVODOPA 25/250 TABLET (FP) ONE (22:08)
[2020-06-10] MEDS: CARBIDOPA/LEVODOPA 25/250 TABLET (FP) PO SCH (22:19)
[2020-06-11] MEDS ORDERED: metFORMIN HCL 500 MG TABLET (FP) ONE (07:01)
[2020-06-11 08:12] LABS: BLOOD UREA NITROGEN 15.6 mg/dL (7-18); CALCIUM 9.6 mg/dL (8.5-10.1); CREATININE 0.7 mg/dL (0.55-1.3); POTASSIUM 3.9 mmol/L (3.5-5.1)
--- NOTE | 2020-06-11 09:28 | EKG ---
Test Reason : Blood Pressure : / mmHG Vent. Rate : 068 BPM Atrial Rate : 068 BPM P-R Int : 186 ms QRS Dur : 082 ms QT Int : 384 ms P-R-T Axes : 065 001 026 degrees QTc Int : 408 ms NORMAL SINUS RHYTHM SEPTAL INFARCT (CITED ON OR BEFORE 23-JUL-2019) ABNORMAL ECG WHEN COMPARED WITH ECG OF 23-JUL-2019 15:32, NO SIGNIFICANT CHANGE WAS FOUND Confirmed by MD ADE, KORI ([id number]) on 06/11/2020 9:28:19 AM Referred By: Confirmed By:KORI BOOKER MD
[2020-06-11] MEDS: INSULIN SLIDING SCALE (NOVOLOG) 1 VIAL SQ SCH ×3 (09:29→18:17)
[2020-06-11] MEDS ORDERED: DULoxetine HCL 30 MG CAPSULE.DR PO SCH (10:00)
[2020-06-11] MEDS: CARBIDOPA/LEVODOPA 25/250 TABLET (FP) PO SCH ×4 (11:30→22:40)
[2020-06-11] MEDS: DOCUSATE SODIUM 100 MG CAPSULE (FP) PO SCH (11:30)
[2020-06-11] MEDS: ISOSORBIDE MONONITRATE 30 MG TAB.SR.24H (FP) PO SCH (11:30)
[2020-06-11] MEDS: ENOXAPARIN NA (PORCINE) 40 MG/0.4 ML DISP.SYRIN SQ SCH (11:30)
[2020-06-11] MEDS: metoPROLOL SUCCINATE 25 MG TAB.SR.24H (FP) PO SCH (11:30)
[2020-06-11] MEDS: POLYETHYLENE GLYCOL 3350 119 GM BTL PO SCH ×2 (11:30→22:40)
[2020-06-11] MEDS: CEFTRIAXONE 1 GM in DEXTROSE 5%-WATER - 50 ML IVPB SCH (11:30)
[2020-06-11] MEDS ORDERED: metoPROLOL SUCCINATE 25 MG TAB.SR.24H (FP) ONE (11:33)
[2020-06-11] MEDS ORDERED: ENOXAPARIN NA (PORCINE) 40 MG/0.4 ML DISP.SYRIN SQ ONE (11:34)
[2020-06-11] MEDS ORDERED: CEFTRIAXONE 1 GM/50 ML BAG ONE (11:34)
[2020-06-11] MEDS ORDERED: CARBIDOPA/LEVODOPA 25/250 TABLET (FP) ONE ×2 (11:34→18:20)
[2020-06-11] MEDS ORDERED: DULoxetine HCL 30 MG CAPSULE.DR PO ONE (11:34)
[2020-06-11] MEDS ORDERED: DOCUSATE SODIUM 100 MG CAPSULE (FP) PO ONE (11:34)
--- NOTE | 2020-06-11 16:13 | PN ---
Progress Note (short form) - Note Progress Note: Active Medications Carbidopa/Levodopa (Sinemet 25/250 -) 1 each PO QID [facility] Last Admin: 06/11/20 11:30 Dose: 1 each Documented by: Docusate Sodium (Colace -) 100 mg PO DAILY [facility] Last Admin: 06/11/20 11:30 Dose: 100 mg Documented by: Duloxetine HCl (Cymbalta -) 60 mg PO DAILY [facility] Last Admin: 06/11/20 11:30 Dose: 60 mg Documented by: Enoxaparin Sodium (Lovenox -) 40 mg SQ DAILY [facility] Last Admin: 06/11/20 11:30 Dose: 40 mg Documented by: Ceftriaxone Sodium 1 gm/ (Dextrose) 50 mls @ 100 mls/hr IVPB DAILY [facility]; Protocol Last Admin: 06/11/20 11:30 Dose: 100 mls/hr Documented by: Insulin Aspart (Novolog Vial Sliding Scale -) 1 vial SQ TIDAC [facility]; Protocol Last Admin: 06/11/20 11:49 Dose: Not Given Documented by: Isosorbide Mononitrate (Imdur -) 15 mg PO DAILY [facility] Last Admin: 06/11/20 11:30 Dose: 15 mg Documented by: Metformin HCl (Glucophage Xr -) 500 mg PO BIDAC [facility] Last Admin: 06/11/20 08:30 Dose: 500 mg Documented by: Metoprolol Succinate (Toprol Xl -) 25 mg PO DAILY [facility] Last Admin: 06/11/20 11:30 Dose: 25 mg Documented by: Polyethylene Glycol (Miralax (For Daily Use) -) 17 gm PO BID [facility] Last Admin: 06/11/20 11:30 Dose: 17 gm Documented by: Laboratory Results - last 24 hr 06/10/20 06/10/20 06/11/20 15:55 19:30 06:00 Sodium 139 Potassium 3.9 Chloride 102 Carbon Dioxide 29 Anion Gap 8 BUN 15.6 Creatinine 0.7 Est GFR (CKD-EPI)AfAm 92.21 Est GFR (CKD-EPI)NonAf 79.56 POC Glucometer Random Glucose 131 H Hemoglobin A1c % Calcium 9.6 TSH 1.18 Urine Color Yellow Urine Appearance Cloudy Urine pH 5.0 Ur Specific [place] 1.018 Urine Protein Negative Urine Glucose (UA) Negative Urine Ketones Trace H Urine Blood Negative Urine Nitrite Positive H Urine Bilirubin Negative Urine Urobilinogen 0.2 Ur Leukocyte Esterase Trace Urine WBC (Auto) 55 Urine RBC (Auto) 7 Urine Casts (Auto) 2 U Epithel Cells (Auto) 8 Urine Bacteria (Auto) >9,000 COVID-19 (KAREN) Not detected 06/11/20 06/11/20 06:00 08:39 Sodium Potassium Chloride Carbon Dioxide Anion Gap BUN Creatinine Est GFR (CKD-EPI)AfAm Est GFR (CKD-EPI)NonAf POC Glucometer 141 Random Glucose Hemoglobin A1c % 6.0 Calcium TSH Urine Color Urine Appearance Urine pH Ur Specific [place] Urine Protein Urine Glucose (UA) Urine Ketones Urine Blood Urine Nitrite Urine Bilirubin Urine Urobilinogen Ur Leukocyte Esterase Urine WBC (Auto) Urine RBC (Auto) Urine Casts (Auto) U Epithel Cells (Auto) Urine Bacteria (Auto) COVID-19 (KAREN) Vital Signs Period Temp Pulse Resp BP Sys/[place] Pulse Ox Last 24 Hr 97.6 F-97.8 F 73-81 18-18 140-159/53-65 96-100 CC: feels weak `````````````````````` skin--NL color head--NC eyes--midline heart--RR lungs--clear abd--mild lower abd tenderness neuro--awake, aware, speech is clear, able to move all extrems; mild cogwheeling, no tremors ````````````````````````````````````````````````` Summ > Bacturia--with lower Urinary Sx, suspcious for UTI; on IV Abs and will await the urine C&S > Htn--BP in fair range at this time > DM--a1c is 6.o; cont with metf alone for now > PD--will get PT eval > Depression--stable with SSRI ````````````````````````````````` Dr Arias
[2020-06-12 02:02] VITALS: BMI 26.2
[2020-06-12] MEDS ORDERED: ACETAMINOPHEN 1000 MG/100 ML VIAL (NON FORMULARY) IVPB PRN (05:52)
[2020-06-12] MEDS: INSULIN SLIDING SCALE (NOVOLOG) 1 VIAL SQ SCH ×3 (06:28→16:36)
[2020-06-12] MEDS ORDERED: DEXTROSE 5%-WATER - 50 ML IVPB ONE (09:25)
[2020-06-12] MEDS ORDERED: PT OWN MED DRAWER 7, Y5N ONE ×2 (09:25→21:27)
[2020-06-12] MEDS ORDERED: cefTRIAXone SODIUM 1 GM VIAL ONE (09:25)
[2020-06-12] MEDS: CEFTRIAXONE 1 GM in DEXTROSE 5%-WATER - 50 ML IVPB SCH (09:29)
[2020-06-12] MEDS: CARBIDOPA/LEVODOPA 25/250 TABLET (FP) PO SCH ×2 (09:30→14:26)
[2020-06-12] MEDS: ISOSORBIDE MONONITRATE 30 MG TAB.SR.24H (FP) PO SCH (09:30)
[2020-06-12] MEDS: DOCUSATE SODIUM 100 MG CAPSULE (FP) PO SCH (09:30)
[2020-06-12] MEDS: metoPROLOL SUCCINATE 25 MG TAB.SR.24H (FP) PO SCH (09:31)
[2020-06-12] MEDS: ENOXAPARIN NA (PORCINE) 40 MG/0.4 ML DISP.SYRIN SQ SCH (09:31)
[2020-06-12] MEDS: DULoxetine HCL 30 MG CAPSULE.DR PO SCH (09:32)
[2020-06-12] MEDS: POLYETHYLENE GLYCOL 3350 119 GM BTL PO SCH ×2 (09:32→21:41)
[2020-06-12 09:58] LABS: BLOOD UREA NITROGEN 27.3 mg/dL (7-18); CALCIUM 8.8 mg/dL (8.5-10.1); CREATININE 0.7 mg/dL (0.55-1.3)
[2020-06-12] MEDS ORDERED: INSULIN (NOVOLOG) ASPART 100 UNITS/ML 10ML VIAL ONE (11:12)
--- NOTE | 2020-06-12 16:14 | PN ---
Progress Note (short form) - Note Progress Note: Active Medications Acetaminophen (Ofirmev Injection -) 1,000 mg IVPB ONCE PRN PRN Reason: PAIN LEVEL 6-10 Carbidopa/Levodopa/Entacapone (Stalevo 150) 1 tab PO TID [facility] Docusate Sodium (Colace -) 100 mg PO DAILY [facility] Last Admin: 06/12/20 09:30 Dose: 100 mg Documented by: Duloxetine HCl (Cymbalta -) 30 mg PO DAILY [facility] Last Admin: 06/12/20 09:32 Dose: 30 mg Documented by: Enoxaparin Sodium (Lovenox -) 40 mg SQ DAILY [facility] Last Admin: 06/12/20 09:31 Dose: 40 mg Documented by: Ceftriaxone Sodium 1 gm/ (Dextrose) 50 mls @ 100 mls/hr IVPB DAILY [facility]; Protocol Last Admin: 06/12/20 09:29 Dose: 100 mls/hr Documented by: Insulin Aspart (Novolog Vial Sliding Scale -) 1 vial SQ TIDAC [facility]; Protocol Last Admin: 06/12/20 11:22 Dose: Not Given Documented by: Isosorbide Mononitrate (Imdur -) 15 mg PO DAILY [facility] Last Admin: 06/12/20 09:30 Dose: 15 mg Documented by: [facility] Admin: 06/12/20 06:55 Dose: 500 mg Documented by: Metoprolol Succinate (Toprol Xl -) 25 mg PO DAILY [facility] Last Admin: 06/12/20 09:31 Dose: 25 mg Documented by: Mirtazapine (Remeron -) 7.5 mg PO [facility] Polyethylene Glycol (Miralax (For Daily Use) -) 17 gm PO BID [facility] Last Admin: 06/12/20 09:32 Dose: 17 gm Documented by: Laboratory Results - last 24 hr 06/12/20 06/12/20 06/12/20 06:21 07:30 11:07 Sodium 139 Potassium 4.0 Chloride 104 Carbon Dioxide 25 Anion Gap 9 BUN 27.3 H Creatinine 0.7 Est GFR (CKD-EPI)AfAm 92.21 Est GFR (CKD-EPI)NonAf 79.56 POC Glucometer 121 172 Random Glucose 136 H Calcium 8.8 Vitamin B12 660 Vital Signs Temperature 98.0 F 06/12/20 15:00 Pulse Rate 64 06/12/20 15:00 Respiratory Rate 20 06/12/20 15:00 Blood Pressure 127/55 L 06/12/20 15:00 O2 Sat by Pulse Oximetry (%) 97 06/12/20 15:00 CC: feels the same; c/o ongoing issue with Lt foot (inverted toe) `````````````````````` skin--NL color head--NC eyes--midline heart--RR lungs--clear abd--mild lower abd tenderness; no rebound BS+ neuro--awake, aware, speech is clear, able to move all extrems; mild cogwheeling, no tremors ````````````````````````````````````````````````` Summ > UTI--Gram neg organism, ID pending; she remains stable & afebrile PLAN: cont Rocephin for now > Htn--BP in good range at this time > DM--a1c is 6.o; cont with metf alone for now > PD--limited mobility; will d/c sinemet and change to Stalevo > Depression--stable with SSRI; have added Mirtazapine at night, and reduced the Cymbalta ````````````````````````````````` Dr Arias
[2020-06-12] MEDS: MIRTAZAPINE 15 MG TABLET (FP) PO SCH (21:40)
[2020-06-12] MEDS: CARBIDOP 37.5MG/LEVODOPA 150MG/ENTACAPONE 200MG TABLET PO SCH (21:41)
[2020-06-12] MEDS ORDERED: CARBIDOPA/LEVODOPA 25/250 TABLET (FP) PO SCH (22:00)
[2020-06-13] MEDS ORDERED: PT OWN MED DRAWER 7, Y5N ONE ×3 (06:42→21:07)
[2020-06-13] MEDS: CARBIDOP 37.5MG/LEVODOPA 150MG/ENTACAPONE 200MG TABLET PO SCH ×2 (06:56→15:14)
[2020-06-13] MEDS: INSULIN SLIDING SCALE (NOVOLOG) 1 VIAL SQ SCH ×3 (06:56→17:08)
[2020-06-13] MEDS ORDERED: sitaGLIPtin PHOSPHATE 50 MG TABLET PO SCH (07:00)
[2020-06-13] MEDS: metoPROLOL SUCCINATE 25 MG TAB.SR.24H (FP) PO SCH ×2 (07:05→10:32)
[2020-06-13 09:46] LABS: BLOOD UREA NITROGEN 17.8 mg/dL (7-18); CALCIUM 9.1 mg/dL (8.5-10.1); CREATININE 0.7 mg/dL (0.55-1.3); POTASSIUM 4.3 mmol/L (3.5-5.1)
[2020-06-13] MEDS ORDERED: DEXTROSE 5%-WATER - 50 ML IVPB ONE (10:04)
[2020-06-13] MEDS ORDERED: cefTRIAXone SODIUM 1 GM VIAL ONE (10:04)
[2020-06-13] MEDS: ENOXAPARIN NA (PORCINE) 40 MG/0.4 ML DISP.SYRIN SQ SCH (10:25)
[2020-06-13] MEDS: ISOSORBIDE MONONITRATE 30 MG TAB.SR.24H (FP) PO SCH (10:25)
[2020-06-13] MEDS: POLYETHYLENE GLYCOL 3350 119 GM BTL PO SCH ×2 (10:26→21:12)
[2020-06-13] MEDS: DOCUSATE SODIUM 100 MG CAPSULE (FP) PO SCH (10:26)
[2020-06-13] MEDS: CEFTRIAXONE 1 GM in DEXTROSE 5%-WATER - 50 ML IVPB SCH (10:26)
[2020-06-13] MEDS: DULoxetine HCL 30 MG CAPSULE.DR PO SCH (10:31)
--- NOTE | 2020-06-13 14:40 | PN ---
Progress Note (short form) - Note Progress Note: Active Medications Acetaminophen (Ofirmev Injection -) 1,000 mg IVPB ONCE PRN PRN Reason: PAIN LEVEL 6-10 Carbidopa/Levodopa (Sinemet 25/250 -) 1 each PO TID [facility] Docusate Sodium (Colace -) 100 mg PO DAILY [facility] Last Admin: 06/13/20 10:26 Dose: 100 mg Documented by: Duloxetine HCl (Cymbalta -) 30 mg PO DAILY [facility] Last Admin: 06/13/20 10:31 Dose: 30 mg Documented by: Enoxaparin Sodium (Lovenox -) 40 mg SQ DAILY [facility] Last Admin: 06/13/20 10:25 Dose: 40 mg Documented by: Entacapone (Comtan -) 200 mg PO TID [facility] Ceftriaxone Sodium 1 gm/ (Dextrose) 50 mls @ 100 mls/hr IVPB DAILY [facility]; Protocol Last Admin: 06/13/20 10:26 Dose: 100 mls/hr Documented by: Insulin Aspart (Novolog Vial Sliding Scale -) 1 vial SQ TIDAC [facility]; Protocol Last Admin: 06/13/20 14:25 Dose: Not Given Documented by: Isosorbide Mononitrate (Imdur -) 15 mg PO DAILY [facility] Last Admin: 06/13/20 10:25 Dose: 15 mg Documented by: Metformin HCl (Glucophage Xr -) 500 mg PO BIDAC [facility] Last Admin: 06/13/20 06:56 Dose: 500 mg Documented by: Metoprolol Succinate (Toprol Xl -) 25 mg PO DAILY [facility] Last Admin: 06/13/20 10:32 Dose: Not Given Documented by: Mirtazapine (Remeron -) 7.5 mg PO HS [facility] Last Admin: 06/12/20 21:40 Dose: 7.5 mg Documented by: Multivitamins/Minerals/Vitamin C (Tab-A-Vit -) 1 tab PO DAILY [facility] Polyethylene Glycol (Miralax (For Daily Use) -) 17 gm PO BID [facility] Last Admin: 06/13/20 10:26 Dose: 17 gm Documented by: Sitagliptin Phosphate (Januvia -) 100 mg PO DAILY@0700 [facility] Laboratory Results - last 24 hr 06/12/20 06/13/20 06/13/20 16:29 06:55 07:50 Sodium 141 Potassium 4.3 Chloride 107 Carbon Dioxide 26 Anion Gap 8 BUN 17.8 Creatinine 0.7 Est GFR (CKD-EPI)AfAm 92.21 Est GFR (CKD-EPI)NonAf 79.56 POC Glucometer 126 119 Random Glucose 114 H Calcium 9.1 06/13/20 14:01 Sodium Potassium Chloride Carbon Dioxide Anion Gap BUN Creatinine Est GFR (CKD-EPI)AfAm Est GFR (CKD-EPI)NonAf POC Glucometer 134 Random Glucose Calcium Vital Signs Temperature 98.4 F 06/13/20 09:00 Pulse Rate 67 06/13/20 09:00 Respiratory Rate 20 06/13/20 09:00 Blood Pressure 138/82 06/13/20 09:00 O2 Sat by Pulse Oximetry (%) 99 06/13/20 09:00 CC: no new complaints; was able to walk, had small BM `````````````````````` skin--NL color head--NC eyes--midline heart--RR lungs--clear abd--non tender, BS+ neuro--awake, aware, speech is clear, able to move all extrems; mild cogwheeling, no tremors ````````````````````````````````````````````````` Summ > UTI--E Coli, sensitive to CephsPLAN: cont Rocephin for now > Htn--BP in good range at this time; cont BB > DM--Januvia added to Metf > PD--change to sinemet & entacapone (stalevo is not covered on her Ins formulary); cont PT, may need VNS > Depression--stable with SSRI; have added Mirtazapine at night, and reduced the Cymbalta ````````````````````````````````` Dr Arias
[2020-06-13] MEDS: CARBIDOPA/LEVODOPA 25/250 TABLET (FP) PO SCH (21:12)
[2020-06-13] MEDS: ENTACAPONE 200 MG TABLET PO SCH (21:12)
[2020-06-13] MEDS: MIRTAZAPINE 15 MG TABLET (FP) PO SCH (21:12)
[2020-06-14] MEDS ORDERED: PT OWN MED DRAWER 7, Y5N ONE ×2 (06:46→21:12)
[2020-06-14] MEDS: INSULIN SLIDING SCALE (NOVOLOG) 1 VIAL SQ SCH ×3 (06:57→17:00)
[2020-06-14] MEDS: metoPROLOL SUCCINATE 25 MG TAB.SR.24H (FP) PO SCH ×2 (06:57→09:52)
[2020-06-14] MEDS: CARBIDOPA/LEVODOPA 25/250 TABLET (FP) PO SCH ×3 (06:57→21:47)
[2020-06-14] MEDS: ENTACAPONE 200 MG TABLET PO SCH ×3 (06:57→21:48)
[2020-06-14] MEDS ORDERED: cefTRIAXone SODIUM 1 GM VIAL ONE (09:38)
[2020-06-14] MEDS ORDERED: DEXTROSE 5%-WATER - 50 ML IVPB ONE (09:38)
[2020-06-14] MEDS: MULTIVITAMINS (DAILY MVI) TABLET (FP) PO SCH (09:49)
[2020-06-14] MEDS: DOCUSATE SODIUM 100 MG CAPSULE (FP) PO SCH (09:49)
[2020-06-14] MEDS: CEFTRIAXONE 1 GM in DEXTROSE 5%-WATER - 50 ML IVPB SCH (09:50)
[2020-06-14] MEDS: ISOSORBIDE MONONITRATE 30 MG TAB.SR.24H (FP) PO SCH (09:50)
[2020-06-14] MEDS: ENOXAPARIN NA (PORCINE) 40 MG/0.4 ML DISP.SYRIN SQ SCH (09:50)
[2020-06-14] MEDS: DULoxetine HCL 30 MG CAPSULE.DR PO SCH (09:52)
[2020-06-14] MEDS: POLYETHYLENE GLYCOL 3350 119 GM BTL PO SCH ×2 (09:55→21:56)
[2020-06-14] MEDS: amLODIPine BESYLATE 5 MG TABLET (FP) PO SCH (11:53)
--- NOTE | 2020-06-14 17:54 | PN ---
Progress Note (short form) - Note Progress Note: Active Medications Acetaminophen (Ofirmev Injection -) 1,000 mg IVPB ONCE PRN PRN Reason: PAIN LEVEL 6-10 Amlodipine Besylate (Norvasc -) 5 mg PO DAILY [facility] Last Admin: 06/14/20 11:53 Dose: 5 mg Documented by: Carbidopa/Levodopa (Sinemet 25/250 -) 1 each PO TID [facility] Last Admin: 06/14/20 14:52 Dose: 1 each Documented by: Docusate Sodium (Colace -) 100 mg PO DAILY [facility] Last Admin: 06/14/20 09:49 Dose: 100 mg Documented by: Duloxetine HCl (Cymbalta -) 30 mg PO DAILY [facility] Last Admin: 06/14/20 09:52 Dose: 30 mg Documented by: Enoxaparin Sodium (Lovenox -) 40 mg SQ DAILY [facility] Last Admin: 06/14/20 09:50 Dose: 40 mg Documented by: Entacapone (Comtan -) 200 mg PO TID [facility] Last Admin: 06/14/20 14:52 Dose: 200 mg Documented by: Ceftriaxone Sodium 1 gm/ (Dextrose) 50 mls @ 100 mls/hr IVPB DAILY [facility]; Protocol Last Admin: 06/14/20 09:50 Dose: 100 mls/hr Documented by: Insulin Aspart (Novolog Vial Sliding Scale -) 1 vial SQ TIDAC [facility]; Protocol Last Admin: 06/14/20 17:00 Dose: Not Given Documented by: Isosorbide Mononitrate (Imdur -) 15 mg PO DAILY [facility] Last Admin: 06/14/20 09:50 Dose: 15 mg Documented by: Metformin HCl (Glucophage Xr -) 500 mg PO BIDAC [facility] Last Admin: 06/14/20 17:00 Dose: 500 mg Documented by: Metoprolol Succinate (Toprol Xl -) 25 mg PO DAILY [facility] Last Admin: 06/14/20 09:52 Dose: Not Given Documented by: Mirtazapine (Remeron -) 7.5 mg PO HS [facility] Last Admin: 06/13/20 21:12 Dose: 7.5 mg Documented by: Multivitamins/Minerals/Vitamin C (Tab-A-Vit -) 1 tab PO DAILY [facility] Last Admin: 06/14/20 09:49 Dose: 1 tab Documented by: Polyethylene Glycol (Miralax (For Daily Use) -) 17 gm PO BID [facility] Last Admin: 06/14/20 09:55 Dose: 17 gm Documented by: Sitagliptin Phosphate (Januvia -) 100 mg PO DAILY@0700 [facility] Last Admin: 06/14/20 06:57 Dose: 100 mg Documented by: Laboratory Results - last 24 hr 06/14/20 06/14/20 06/14/20 06:56 11:40 16:59 POC Glucometer 120 114 105 Vital Signs Temperature 98.2 F 06/14/20 15:00 Pulse Rate 71 06/14/20 15:00 Respiratory Rate 18 06/14/20 15:00 Blood Pressure 148/61 06/14/20 15:00 O2 Sat by Pulse Oximetry (%) 100 06/14/20 15:00 CC: no new complaints; able to walk with walker 200ft, had good BM `````````````````````` skin--NL color head--NC eyes--midline heart--RR lungs--clear abd--non tender, BS+ neuro--awake, aware, speech is clear, able to move all extrems; mild cogwheeling, no tremors ````````````````````````````````````````````````` Summ > UTI--E Coli, sensitive to Cephs PLAN: change to ceftin > Htn--BP high, CCB added > DM--Januvia added to Metf; BS okay > PD--change to sinemet & entacapone (stalevo is not covered on her Ins formulary); cont PT, may need VNS > Depression--stable with SSRI; have added Mirtazapine at night, and reduced the Cymbalta ````````````````````````````````` Dr Arias
--- NOTE | 2020-06-14 17:57 | PN ---
Progress Note (short form) - Note Progress Note: Active Medications Acetaminophen (Tylenol -) 500 mg PO Q6H PRN PRN Reason: PAIN Amlodipine Besylate (Norvasc -) 5 mg PO DAILY [facility] Last Admin: 06/14/20 11:53 Dose: 5 mg Documented by: Carbidopa/Levodopa (Sinemet 25/250 -) 1 each PO TID [facility] Last Admin: 06/14/20 14:52 Dose: 1 each Documented by: Cefuroxime Axetil (Ceftin -) 250 mg PO BID [facility] Docusate Sodium (Colace -) 100 mg PO DAILY [facility] Last Admin: 06/14/20 09:49 Dose: 100 mg Documented by: Duloxetine HCl (Cymbalta -) 30 mg PO DAILY [facility] Last Admin: 06/14/20 09:52 Dose: 30 mg Documented by: Enoxaparin Sodium (Lovenox -) 40 mg SQ DAILY [facility] Last Admin: 06/14/20 09:50 Dose: 40 mg Documented by: Entacapone (Comtan -) 200 mg PO TID [facility] Last Admin: 06/14/20 14:52 Dose: 200 mg Documented by: Ceftriaxone Sodium 1 gm/ (Dextrose) 50 mls @ 100 mls/hr IVPB DAILY [facility]; Protocol Last Admin: 06/14/20 09:50 Dose: 100 mls/hr Documented by: Insulin Aspart (Novolog Vial Sliding Scale -) 1 vial SQ TIDAC [facility]; Protocol Last Admin: 06/14/20 17:00 Dose: Not Given Documented by: Isosorbide Mononitrate (Imdur -) 15 mg PO DAILY [facility] Last Admin: 06/14/20 09:50 Dose: 15 mg Documented by: Metformin HCl (Glucophage Xr -) 500 mg PO BIDAC [facility] Last Admin: 06/14/20 17:00 Dose: 500 mg Documented by: Metoprolol Succinate (Toprol Xl -) 25 mg PO DAILY [facility] Last Admin: 06/14/20 09:52 Dose: Not Given Documented by: Mirtazapine (Remeron -) 7.5 mg PO HS [facility] Last Admin: 06/13/20 21:12 Dose: 7.5 mg Documented by: Multivitamins/Minerals/Vitamin C (Tab-A-Vit -) 1 tab PO DAILY [facility] Last Admin: 06/14/20 09:49 Dose: 1 tab Documented by: Polyethylene Glycol (Miralax (For Daily Use) -) 17 gm PO BID [facility] Last Admin: 06/14/20 09:55 Dose: 17 gm Documented by: Sitagliptin Phosphate (Januvia -) 100 mg PO DAILY@0700 [facility] Last Admin: 06/14/20 06:57 Dose: 100 mg Documented by: Laboratory Results - last 24 hr 06/14/20 06/14/20 06/14/20 06:56 11:40 16:59 POC Glucometer 120 114 105 Vital Signs Temperature 98.2 F 06/14/20 15:00 Pulse Rate 71 06/14/20 15:00 Respiratory Rate 18 06/14/20 15:00 Blood Pressure 148/61 06/14/20 15:00 O2 Sat by Pulse Oximetry (%) 100 06/14/20 15:00 CC: no new complaints; able to walk with walker 200ft, had good BM `````````````````````` skin--NL color head--NC eyes--midline heart--RR lungs--clear abd--non tender, BS+ neuro--awake, aware, speech is clear, able to move all extrems; mild cogwheeling, no tremors ````````````````````````````````````````````````` Summ > UTI--E Coli, sensitive to Cephs PLAN: change to ceftin > Htn--BP high, CCB added > DM--Januvia added to Metf; BS okay > PD--change to sinemet & entacapone (stalevo is not covered on her Ins formulary); cont PT, may need VNS > Depression--stable with SSRI; have added Mirtazapine at night, and reduced the Cymbalta ````````````````````````````````` Dr Arias
[2020-06-14] MEDS: ACETAMINOPHEN 500 MG TABLET (FP) PO PRN (20:14)
[2020-06-14] MEDS: CEFUROXIME AXETIL 250 MG TABLET PO SCH (21:47)
[2020-06-14] MEDS: MIRTAZAPINE 15 MG TABLET (FP) PO SCH (21:48)
[2020-06-15] MEDS: CARBIDOPA/LEVODOPA 25/250 TABLET (FP) PO SCH ×2 (06:15→13:27)
[2020-06-15] MEDS: ENTACAPONE 200 MG TABLET PO SCH ×2 (06:16→13:27)
[2020-06-15] MEDS: INSULIN SLIDING SCALE (NOVOLOG) 1 VIAL SQ SCH ×2 (06:19→11:06)
[2020-06-15] MEDS ORDERED: PT OWN MED DRAWER 7, Y5N ONE (09:38)
[2020-06-15] MEDS: ACETAMINOPHEN 500 MG TABLET (FP) PO PRN (09:42)
[2020-06-15] MEDS: DOCUSATE SODIUM 100 MG CAPSULE (FP) PO SCH (09:43)
[2020-06-15] MEDS: ISOSORBIDE MONONITRATE 30 MG TAB.SR.24H (FP) PO SCH (09:44)
[2020-06-15] MEDS: amLODIPine BESYLATE 5 MG TABLET (FP) PO SCH (09:44)
[2020-06-15] MEDS: POLYETHYLENE GLYCOL 3350 119 GM BTL PO SCH (09:48)
[2020-06-15] MEDS: MULTIVITAMINS (DAILY MVI) TABLET (FP) PO SCH (09:48)
[2020-06-15] MEDS: metoPROLOL SUCCINATE 25 MG TAB.SR.24H (FP) PO SCH (09:48)
[2020-06-15] MEDS: ENOXAPARIN NA (PORCINE) 40 MG/0.4 ML DISP.SYRIN SQ SCH (09:48)
[2020-06-15] MEDS: DULoxetine HCL 30 MG CAPSULE.DR PO SCH (09:49)
[2020-06-15] MEDS: CEFUROXIME AXETIL 250 MG TABLET PO SCH (09:49)
[2020-06-15] MEDS ORDERED: IBUPROFEN 400 MG TABLET (FP) PO STA (14:10)
--- NOTE | 2020-06-15 14:49 | DS ---
Physical Examination Vital Signs: Vital Signs Temperature 98.4 F 06/15/20 09:08 Pulse Rate 74 06/15/20 09:08 Respiratory Rate 18 06/15/20 09:08 Blood Pressure 136/54 L 06/15/20 09:08 O2 Sat by Pulse Oximetry (%) 96 06/15/20 09:08 Constitutional: Yes: Well Nourished, No Distress, Anxious Eyes: Yes: Conjunctiva Clear HENT: Yes: Atraumatic Neck: Yes: Supple Cardiovascular: Yes: Regular Rate and Rhythm Respiratory: Yes: CTA Bilaterally Gastrointestinal: Yes: Normal Bowel Sounds, Soft ...Rectal Exam: Yes: Deferred Musculoskeletal: Yes: Muscle Pain Extremities: Yes: WNL Edema: No Peripheral Pulses WNL: Yes Integumentary: Yes: WNL Neurological: Yes: Alert, Oriented Labs: CBC, BMP 06/10/20 15:00 06/13/20 07:50 Discharge Summary Problems reviewed: Yes Reason For Visit: UTI LOW BACK PAIN Current Active Problems Back pain (Acute) Urinary tract infection (Acute) Parkinsons Diabetes HTN lipidemia depression Hospital Course: admitted for Sx of UTI found to have sensitive Ecoli, Given IV Rocephin and thyen changed to PO cefuroxime; during her stay, she c/o various aches and pains, constipation; she was seen by PT and found to be capable of ambulation with walker and did not qualify for SNF. She improved clinically, her BP dameon and was then placed on CCB with a good response. Her FSBS were in good range on Metforimin and Januvia. She c/o various musc-skel aches and pains which arent new. Condition: Stable - Instructions Diet, Activity, Other Instructions: low salt diet; no high carbs or sugary foods Use laxatives as needed Home VNS Referrals: Kyle Arias MD [Primary Care Provider] - Disposition: VNS/HOME HEALTH CARE - Home Medications Comprehensive Discharge Medication List: Ambulatory Orders Sitagliptin Phosphate [Januvia] 100 mg PO DAILY 12/15/16 Aspirin 81 mg PO DAILY 07/23/19 Duloxetine HCl [Cymbalta] 60 mg PO DAILY 07/23/19 Metoprolol Succinate 25 mg PO DAILY 07/23/19 Amlodipine Besylate [Norvasc -] 5 mg PO DAILY #30 tablet 06/15/20 Carbidopa/Levodopa 25/250 [Sinemet 25/250 -] 1 each PO TID #90 tablet 06/15/20 Cefuroxime Axetil [Ceftin -] 250 mg PO BID 5 Days #10 tablet 06/15/20 Docusate Sodium [Colace -] 100 mg PO DAILY #30 capsule 06/15/20 Entacapone [Comtan -] 200 mg PO TID #90 tablet 06/15/20 Isosorbide Mononitrate [Imdur -] 15 mg PO DAILY tab.sr.24h 06/15/20 Mirtazapine [Remeron -] 7.5 mg PO HS #30 tablet 06/15/20 Polyethylene Glycol 3350 [Miralax 119 gm Btl -] 17 gm PO BID bottle 06/15/20 metFORMIN XR [Glucophage Xr -] 500 mg PO BIDAC tab.sr.24h 06/15/20
[2020-06-15 15:18] VITALS: BP 136/49; PULSE 77; TEMP 98.1
== END 2020-06-15 15:31 | disposition home health service (06) | DRG 690 ==
LOC: JER 14:19 → JERBED 16:55 → J5S 06-11 20:45
PROVIDERS: ADMIT Internal Medicine; ATTEND Internal Medicine
DX: N39.0 Urinary tract infection, site not specified (principal); I10 Essential (primary) hypertension; G20 Parkinson's disease; E78.5 Hyperlipidemia, unspecified; R29.6 Repeated falls; E11.9 Type 2 diabetes mellitus without complications; F32.9 Major depressive disorder, single episode, unspecified; Z79.84 Long term (current) use of oral hypoglycemic drugs; B96.20 Unspecified Escherichia coli [E. coli] as the cause of diseases classified elsewhere
CPT/HCPCS: 36415; 70450-TC; 72100-TC-FY; 72125-TC; 80048; 80053; 81003; 82607; 82962; 83036; 84443; 85025; 85610; 87086; 87186; 93005; 93010; 97116-GP; 97162-GP; 99285-25; J0131; U0003

== ENCOUNTER 2021-11-21 04:35 | Observation (INO) | payer OTHER ==
[2021-11-21 05:02] VITALS: BMI 28.1
[2021-11-21] MEDS ORDERED: SODIUM CHLORIDE 500 ML IV STA (06:55)
[2021-11-21 06:59] LABS: BASO % 0.7 % (0-2.0); EOS % 2.4 % (0-4.5); HEMATOCRIT 34.6 % (32.4-45.2); HEMOGLOBIN 11.4 GM/dL (10.7-15.3); LYMPH % 24.2 % (8-40); MCH 27.4 pg (25.7-33.7); MCHC 32.9 g/dl (32.0-36.0); MEAN CELL VOLUME 83.2 fl (80-96); MEAN PLT VOLUME 7.9 fl (7.5-11.1); MONO % 10.2 % (3.8-10.2); NEUT % 62.5 % (42.8-82.8); PLATELET COUNT 250 10^3/uL (134-434); RBC 4.17 M/mm3 (3.60-5.2); RDW 15.3 % (11.6-15.6); WHITE BLOOD COUNT 5.9 K/mm3 (4.0-10.0)
[2021-11-21 07:05] LABS: INR 0.99 (0.83-1.09); PROTHROMBIN TIME (PATIENT) 11.4 SEC (9.7-13.0)
[2021-11-21 07:17] LABS: BLOOD UREA NITROGEN 19.6 mg/dL (7-18); CALCIUM 9.1 mg/dL (8.5-10.1)
[2021-11-21 07:19] LABS: CREATININE 0.7 mg/dL (0.55-1.3)
[2021-11-21 07:21] LABS: BILIRUBIN,TOTAL 0.3 mg/dL (0.2-1); TOT PROT 7.1 g/dl (6.4-8.2)
[2021-11-21] MEDS ORDERED: ACETAMINOPHEN 325 MG TABLET (FP) PO ONE (07:39)
[2021-11-21] MEDS ORDERED: ACETAMINOPHEN 325 MG TABLET (FP) ONE (08:19)
[2021-11-21 09:05] LABS: URINE APPEARANCE CLEAR; URINE BILIRUBIN NEGATIVE (NEGATIVE); URINE COLOR YELLOW; URINE GLUCOSE (UA) NEGATIVE (NEGATIVE); URINE KETONE NEGATIVE (NEGATIVE); URINE LEUK ESTERASE NEGATIVE (NEGATIVE); URINE NITRITE NEGATIVE (NEGATIVE); URINE PROTEIN NEGATIVE (NEGATIVE); URINE UROBILINOGEN 0.2 mg/dL (0.2-1.0)
[2021-11-21] MEDS ORDERED: ACETAMINOPHEN 325 MG TABLET (FP) PO PRN (14:46)
[2021-11-21] MEDS ORDERED: amLODIPine BESYLATE 5 MG TABLET (FP) PO ONE (14:49)
[2021-11-21] MEDS ORDERED: ALPRAZolam 0.25 MG TABLET PO PRN (14:50)
[2021-11-21] MEDS ORDERED: LOSARTAN POTASSIUM 50 MG TABLET PO ONE (20:00)
[2021-11-21] MEDS: MIRTAZAPINE 15 MG TABLET (FP) PO SCH (21:21)
[2021-11-21] MEDS: ATORVASTATIN CA 10 MG TABLET (FP) PO SCH (21:21)
[2021-11-21] MEDS: HEPARIN NA (PORCINE) 5,000 UNITS/ML 1ML VIAL SQ SCH (21:22)
[2021-11-21] MEDS: POLYETHYLENE GLYCOL (HEALTHYLAX) 3350 17 GM PACKET PO SCH (21:22)
[2021-11-21] MEDS: CARBIDOPA/LEVODOPA 25/250 TABLET (FP) PO SCH (21:23)
[2021-11-21] MEDS: ENTACAPONE 200 MG TABLET PO SCH (22:00)
[2021-11-22] MEDS: CARBIDOPA/LEVODOPA 25/250 TABLET (FP) PO SCH ×5 (00:05→21:25)
[2021-11-22 09:02] LABS: CHOLESTEROL 161 mg/dL (50-200)
[2021-11-22 09:03] LABS: LDL CHOLESTEROL (ONLY SJRH) 75 mg/dL (5-100); TRIGLYCERIDES 107 mg/dL (0-150)
[2021-11-22 09:04] LABS: HDL CHOLESTEROL 56 mg/dL (40-60)
[2021-11-22] MEDS ORDERED: LOSARTAN POTASSIUM 25 MG TABLET PO SCH (10:00)
[2021-11-22] MEDS ORDERED: amLODIPine BESYLATE 5 MG TABLET (FP) PO SCH (10:00)
[2021-11-22] MEDS ORDERED: ISOSORBIDE MONONITRATE 30 MG TAB.SR.24H (FP) PO SCH (10:00)
[2021-11-22] MEDS ORDERED: DULoxetine HCL 60 MG CAPSULE.DR PO SCH (10:00)
[2021-11-22] MEDS ORDERED: DULoxetine HCL 30 MG CAPSULE.DR PO ONE (10:12)
[2021-11-22] MEDS: ENTACAPONE 200 MG TABLET PO SCH ×4 (10:18→21:23)
[2021-11-22] MEDS: POLYETHYLENE GLYCOL (HEALTHYLAX) 3350 17 GM PACKET PO SCH ×2 (10:18→21:23)
[2021-11-22] MEDS: HEPARIN NA (PORCINE) 5,000 UNITS/ML 1ML VIAL SQ SCH ×2 (10:18→21:24)
[2021-11-22 21:04] VITALS: BP 126/51; PULSE 77; TEMP 98
[2021-11-22] MEDS: MIRTAZAPINE 15 MG TABLET (FP) PO SCH (21:24)
[2021-11-22] MEDS: ATORVASTATIN CA 10 MG TABLET (FP) PO SCH (21:24)
== END 2021-11-22 22:50 | disposition home or self-care (01) ==
LOC: JER 04:35 → SUPCPDRO 04:35 → JERBED 07:11 → J7W 13:03
PROVIDERS: ADMIT Internal Medicine; ATTEND Internal Medicine
PROC: 3E023GC Introduction of Other Therapeutic Substance into Muscle, Percutaneous Approach (ICD-10-PCS; principal; 2021-11-21)
PROC: 3E0337Z Introduction of Electrolytic and Water Balance Substance into Peripheral Vein, Percutaneous Approach (ICD-10-PCS; 2021-11-21)
DX: G20 Parkinson's disease (principal); M54.40 Lumbago with sciatica, unspecified side; R29.6 Repeated falls; Z91.041 Radiographic dye allergy status; I10 Essential (primary) hypertension; Z86.73 Personal history of transient ischemic attack (TIA), and cerebral infarction without residual deficits; K59.09 Other constipation; Z87.440 Personal history of urinary (tract) infections; M47.899 Other spondylosis, site unspecified; Z29.9 Encounter for prophylactic measures, unspecified
CPT/HCPCS: 36415; 70450-TC; 71045-TC-FY; 72125-TC; 72131-TC; 73590-TC-LT-FY; 73610-TC-LT-FY; 73630-TC-LT; 80053; 80061; 81003; 82962; 83036; 84443; 85025; 85610; 87086; 87186; 93005; 93010; 96360; 96372; 99285-25; C9803; G0378; J1644; U0003; U0005

== ENCOUNTER 2022-07-05 17:08 | Inpatient (IN) | payer OTHER ==
[2022-07-05 18:29] LABS: BASO % 0.6 % (0-2.0); EOS % 3.2 % (0-4.5); HEMATOCRIT 34.9 % (32.4-45.2); HEMOGLOBIN 11.2 GM/dL (10.7-15.3); LYMPH % 31.6 % (8-40); MCH 26.7 pg (25.7-33.7); MCHC 32.2 g/dl (32.0-36.0); MEAN PLT VOLUME 7.8 fl (7.5-11.1); MONO % 10.9 % (3.8-10.2); NEUT % 53.7 % (42.8-82.8); PLATELET COUNT 248 10^3/uL (134-434); RDW 15.9 % (11.6-15.6); WHITE BLOOD COUNT 5.2 K/mm3 (4.0-10.0)
[2022-07-05 20:23] LABS: EPI CELLS 3 /uL (0-25.1); HYALINE CASTS 0 /uL (0-3.1); PH,URINE 7.5 (5.0-8.0); URINE APPEARANCE CLEAR; URINE BACTERIA >9,000 /uL (0-1359); URINE BILIRUBIN NEGATIVE (NEGATIVE); URINE COLOR YELLOW; URINE GLUCOSE (UA) NEGATIVE (NEGATIVE); URINE KETONE NEGATIVE (NEGATIVE); URINE LEUK ESTERASE 2+ (NEGATIVE); URINE NITRITE POSITIVE (NEGATIVE); URINE PROTEIN NEGATIVE (NEGATIVE); URINE UROBILINOGEN 0.2 mg/dL (0.2-1.0); URINE WBC 17 /uL (0-25.8)
[2022-07-05 20:26] LABS: ALBUMIN 3.7 g/dl (3.4-5.0); BLOOD UREA NITROGEN 17.6 mg/dL (7-18); CALCIUM 9.4 mg/dL (8.5-10.1)
[2022-07-05 20:29] LABS: CREATININE 0.6 mg/dL (0.55-1.3)
[2022-07-05 20:30] LABS: BILIRUBIN,TOTAL 0.3 mg/dL (0.2-1); TOT PROT 6.8 g/dl (6.4-8.2)
[2022-07-05] MEDS ORDERED: PIPERACILLIN/TAZOB 4.5 GM 4.5 GM in DEXTROSE 5%-WATER 100 ML IVPB ONE (20:40)
[2022-07-05] MEDS ORDERED: PIPERACILLIN/TAZOB 4.5 GM 4.5 GM/100 ML BAG IVPB ONE (20:53)
[2022-07-05 21:50] LABS: URINE RBC 65 /uL (0-23.9)
[2022-07-06] MEDS ORDERED: ACETAMINOPHEN 325 MG TABLET (FP) PO PRN (00:50)
[2022-07-06] MEDS ORDERED: ACETAMINOPHEN 325 MG TABLET (FP) ONE (01:29)
[2022-07-06] MEDS ORDERED: sitaGLIPtin PHOSPHATE 50 MG TABLET ONE (06:09)
[2022-07-06] MEDS ORDERED: FLU VACC QS2022-23(6MOS UP)/PF 60 MCG/0.5 ML SYRINGE IM ONE (07:20)
[2022-07-06] MEDS ORDERED: DULoxetine HCL 30 MG CAPSULE.DR PO ONE (09:03)
[2022-07-06] MEDS: ISOSORBIDE MONONITRATE 30 MG TAB.SR.24H (FP) PO SCH (09:59)
[2022-07-06] MEDS: LOSARTAN POTASSIUM 25 MG TABLET PO SCH (09:59)
[2022-07-06] MEDS: amLODIPine BESYLATE 5 MG TABLET (FP) PO SCH (09:59)
[2022-07-06] MEDS ORDERED: PIPERACILLIN/TAZOB 3.375 GM 3.375 GM in DEXTROSE 5%-WATER - 50 ML IVPB SCH (10:00)
[2022-07-06] MEDS ORDERED: DULoxetine HCL 60 MG CAPSULE.DR PO SCH (10:00)
[2022-07-06] MEDS: CARBIDOPA/LEVODOPA 25/250 TABLET (FP) PO SCH ×4 (10:23→22:10)
[2022-07-06] MEDS: ENTACAPONE 200 MG TABLET PO SCH ×4 (10:23→22:10)
[2022-07-06] MEDS: ENOXAPARIN NA (PORCINE) 40 MG/0.4 ML DISP.SYRIN SQ SCH (11:22)
[2022-07-06 12:57] LABS: BASO % 0.3 % (0-2.0); EOS % 2.1 % (0-4.5); HEMATOCRIT 36.9 % (32.4-45.2); LYMPH % 25.6 % (8-40); MCH 26.9 pg (25.7-33.7); MCHC 32.5 g/dl (32.0-36.0); MEAN CELL VOLUME 82.8 fl (80-96); MEAN PLT VOLUME 8.2 fl (7.5-11.1); MONO % 9.1 % (3.8-10.2); NEUT % 62.9 % (42.8-82.8); PLATELET COUNT 263 10^3/uL (134-434); RBC 4.45 M/mm3 (3.60-5.2); RDW 16.2 % (11.6-15.6); WHITE BLOOD COUNT 4.6 K/mm3 (4.0-10.0)
[2022-07-06 13:23] LABS: CALCIUM 9.3 mg/dL (8.5-10.1)
[2022-07-06 13:24] LABS: BLOOD UREA NITROGEN 21.5 mg/dL (7-18)
[2022-07-06 13:29] LABS: CREATININE 0.9 mg/dL (0.55-1.3)
[2022-07-06] MEDS: FAMOTIDINE 20 MG TABLET PO SCH (14:50)
[2022-07-06 16:23] VITALS: RESP 18; BMI 23.6
[2022-07-06] MEDS ORDERED: MIRTAZAPINE 15 MG TABLET (FP) PO SCH (22:00)
[2022-07-06] MEDS: MIRTAZAPINE 15 MG TABLET (FP) PO SCH (22:10)
[2022-07-06] MEDS: ATORVASTATIN CA 10 MG TABLET (FP) PO SCH (22:10)
[2022-07-07] MEDS: FAMOTIDINE 20 MG TABLET PO SCH (10:36)
[2022-07-07] MEDS: ISOSORBIDE MONONITRATE 30 MG TAB.SR.24H (FP) PO SCH (10:36)
[2022-07-07] MEDS: LOSARTAN POTASSIUM 25 MG TABLET PO SCH (10:36)
[2022-07-07] MEDS: DULoxetine HCL 30 MG CAPSULE.DR PO SCH (10:36)
[2022-07-07] MEDS: amLODIPine BESYLATE 5 MG TABLET (FP) PO SCH (10:36)
[2022-07-07] MEDS: ENOXAPARIN NA (PORCINE) 40 MG/0.4 ML DISP.SYRIN SQ SCH (10:37)
[2022-07-07] MEDS: CEFTRIAXONE 1 GM in DEXTROSE 5%-WATER - 50 ML IVPB SCH (10:37)
[2022-07-07] MEDS: ENTACAPONE 200 MG TABLET PO SCH ×4 (10:39→21:14)
[2022-07-07] MEDS: CARBIDOPA/LEVODOPA 25/250 TABLET (FP) PO SCH ×4 (10:40→21:15)
[2022-07-07] MEDS ORDERED: POLYETHYLENE GLYCOL (HEALTHYLAX) 3350 17 GM PACKET PO PRN (12:35)
[2022-07-07] MEDS: ATORVASTATIN CA 10 MG TABLET (FP) PO SCH (21:10)
[2022-07-07] MEDS: MIRTAZAPINE 15 MG TABLET (FP) PO SCH (21:10)
[2022-07-08] MEDS: CEFTRIAXONE 1 GM in DEXTROSE 5%-WATER - 50 ML IVPB SCH (09:57)
[2022-07-08] MEDS: ENOXAPARIN NA (PORCINE) 40 MG/0.4 ML DISP.SYRIN SQ SCH (10:07)
[2022-07-08] MEDS: LOSARTAN POTASSIUM 25 MG TABLET PO SCH (10:07)
[2022-07-08] MEDS: DULoxetine HCL 30 MG CAPSULE.DR PO SCH (10:07)
[2022-07-08] MEDS: FAMOTIDINE 20 MG TABLET PO SCH (10:07)
[2022-07-08] MEDS: amLODIPine BESYLATE 5 MG TABLET (FP) PO SCH (10:07)
[2022-07-08] MEDS: ISOSORBIDE MONONITRATE 30 MG TAB.SR.24H (FP) PO SCH (10:08)
[2022-07-08] MEDS: CARBIDOPA/LEVODOPA 25/250 TABLET (FP) PO SCH ×4 (10:09→21:17)
[2022-07-08] MEDS: ENTACAPONE 200 MG TABLET PO SCH ×4 (10:09→21:17)
[2022-07-08] MEDS: MIRTAZAPINE 15 MG TABLET (FP) PO SCH (21:17)
[2022-07-08] MEDS: ATORVASTATIN CA 10 MG TABLET (FP) PO SCH (21:17)
[2022-07-09] MEDS: amLODIPine BESYLATE 5 MG TABLET (FP) PO SCH (11:11)
[2022-07-09] MEDS: ISOSORBIDE MONONITRATE 30 MG TAB.SR.24H (FP) PO SCH (11:11)
[2022-07-09] MEDS: DULoxetine HCL 30 MG CAPSULE.DR PO SCH (11:11)
[2022-07-09] MEDS: LOSARTAN POTASSIUM 25 MG TABLET PO SCH (11:11)
[2022-07-09] MEDS: FAMOTIDINE 20 MG TABLET PO SCH (11:11)
[2022-07-09] MEDS: CEFTRIAXONE 1 GM in DEXTROSE 5%-WATER - 50 ML IVPB SCH (11:12)
[2022-07-09] MEDS: ENTACAPONE 200 MG TABLET PO SCH ×2 (11:12→15:15)
[2022-07-09] MEDS: ENOXAPARIN NA (PORCINE) 40 MG/0.4 ML DISP.SYRIN SQ SCH (11:12)
[2022-07-09] MEDS: CARBIDOPA/LEVODOPA 25/250 TABLET (FP) PO SCH ×2 (11:13→15:15)
[2022-07-09 17:08] VITALS: BP 145/69; PULSE 70; TEMP 98.2
== END 2022-07-09 15:45 | disposition home health service (06) | DRG 689 ==
LOC: JER 17:08 → JERBED 20:52 → J7W 07-06 06:58 → J6S 07-07 17:43
PROVIDERS: ADMIT Internal Medicine; ATTEND Internal Medicine
DX: N39.0 Urinary tract infection, site not specified (principal); G93.41 Metabolic encephalopathy; G20 Parkinson's disease; E11.9 Type 2 diabetes mellitus without complications; I10 Essential (primary) hypertension; K08.89 Other specified disorders of teeth and supporting structures; B96.20 Unspecified Escherichia coli [E. coli] as the cause of diseases classified elsewhere
CPT/HCPCS: 0241U-QW; 36415; 70450-TC; 71045-TC-FY; 80048; 80053; 81003; 82962; 85025; 87086; 87186; 93005; 93010; 97116-GP; 97161-GP; 99285-25; G0008; Q2036

== ENCOUNTER 2022-07-09 19:00 | Observation (INO) | payer OTHER ==
[2022-07-09 19:26] VITALS: BMI 27.1
[2022-07-09] MEDS ORDERED: HALOPERIDOL LACTATE 5 MG/ML IM ONE ×2 (20:48→21:29)
[2022-07-09] MEDS ORDERED: HALOPERIDOL DECANOATE 500 MG/5ML MDV IM ONE (20:49)
[2022-07-09 21:14] LABS: ALBUMIN 3.6 g/dl (3.4-5.0); BLOOD UREA NITROGEN 22.9 mg/dL (7-18); CALCIUM 9.4 mg/dL (8.5-10.1)
[2022-07-09 21:17] LABS: CREATININE 0.7 mg/dL (0.55-1.3)
[2022-07-09 21:18] LABS: BILIRUBIN,TOTAL 0.4 mg/dL (0.2-1); TOT PROT 6.4 g/dl (6.4-8.2)
[2022-07-09 22:17] LABS: HEMATOCRIT 36.2 % (32.4-45.2); HEMOGLOBIN 11.4 GM/dL (10.7-15.3); MCH 26.1 pg (25.7-33.7); MCHC 31.4 g/dl (32.0-36.0); MEAN CELL VOLUME 83.3 fl (80-96); MEAN PLT VOLUME 8.7 fl (7.5-11.1); PLATELET COUNT 254 10^3/uL (134-434); RBC 4.35 M/mm3 (3.60-5.2); RDW 16.1 % (11.6-15.6); WHITE BLOOD COUNT 5.8 K/mm3 (4.0-10.0)
[2022-07-09 22:37] LABS: ALBUMIN 3.9 g/dl (3.4-5.0); BLOOD UREA NITROGEN 23.6 mg/dL (7-18); CALCIUM 9.5 mg/dL (8.5-10.1)
[2022-07-09 22:40] LABS: CREATININE 0.7 mg/dL (0.55-1.3)
[2022-07-09 22:42] LABS: BILIRUBIN,TOTAL 0.4 mg/dL (0.2-1); TOT PROT 7.1 g/dl (6.4-8.2)
[2022-07-09 23:44] LABS: URINE APPEARANCE CLEAR; URINE BILIRUBIN NEGATIVE (NEGATIVE); URINE COLOR DK YELLOW; URINE GLUCOSE (UA) NEGATIVE (NEGATIVE); URINE KETONE TRACE (NEGATIVE); URINE LEUK ESTERASE NEGATIVE (NEGATIVE); URINE NITRITE NEGATIVE (NEGATIVE); URINE PROTEIN NEGATIVE (NEGATIVE); URINE UROBILINOGEN 0.2 mg/dL (0.2-1.0)
[2022-07-10] MEDS: ISOSORBIDE MONONITRATE 30 MG TAB.SR.24H (FP) PO SCH (12:13)
[2022-07-10] MEDS: sitaGLIPtin PHOSPHATE 50 MG TABLET PO SCH (12:13)
[2022-07-10] MEDS: ENTACAPONE 200 MG TABLET PO SCH ×4 (12:13→21:22)
[2022-07-10] MEDS: LOSARTAN POTASSIUM 25 MG TABLET PO SCH (12:13)
[2022-07-10] MEDS: DULoxetine HCL 30 MG CAPSULE.DR PO SCH (12:13)
[2022-07-10] MEDS: HEPARIN NA (PORCINE) 5,000 UNITS/ML 1ML VIAL SQ SCH ×2 (12:13→21:22)
[2022-07-10] MEDS: POLYETHYLENE GLYCOL (HEALTHYLAX) 3350 17 GM PACKET PO SCH ×2 (12:13→21:22)
[2022-07-10] MEDS: CARBIDOPA/LEVODOPA 25/250 TABLET (FP) PO SCH ×4 (12:13→21:22)
[2022-07-10] MEDS: AMOX TR/POTASSIUM CLAVULANATE 600 MG/5 ML PO SCH ×2 (15:07→21:22)
[2022-07-10] MEDS: ACETAMINOPHEN 325 MG TABLET (FP) PO PRN (20:12)
[2022-07-10] MEDS: ATORVASTATIN CA 10 MG TABLET (FP) PO SCH (21:22)
[2022-07-10] MEDS: MIRTAZAPINE 15 MG TABLET (FP) PO SCH (21:22)
[2022-07-11] MEDS: HEPARIN NA (PORCINE) 5,000 UNITS/ML 1ML VIAL SQ SCH ×2 (09:50→21:11)
[2022-07-11] MEDS: POLYETHYLENE GLYCOL (HEALTHYLAX) 3350 17 GM PACKET PO SCH ×2 (09:50→21:14)
[2022-07-11] MEDS: ISOSORBIDE MONONITRATE 30 MG TAB.SR.24H (FP) PO SCH (09:50)
[2022-07-11] MEDS: LOSARTAN POTASSIUM 25 MG TABLET PO SCH (09:50)
[2022-07-11] MEDS: DULoxetine HCL 30 MG CAPSULE.DR PO SCH (09:51)
[2022-07-11] MEDS: sitaGLIPtin PHOSPHATE 50 MG TABLET PO SCH (09:51)
[2022-07-11] MEDS: ENTACAPONE 200 MG TABLET PO SCH ×4 (09:51→21:11)
[2022-07-11] MEDS: AMOX TR/POTASSIUM CLAVULANATE 600 MG/5 ML PO SCH ×2 (09:53→21:12)
[2022-07-11] MEDS: CARBIDOPA/LEVODOPA 25/250 TABLET (FP) PO SCH ×4 (10:04→21:12)
[2022-07-11] MEDS: ACETAMINOPHEN 325 MG TABLET (FP) PO PRN (20:24)
[2022-07-11] MEDS: ATORVASTATIN CA 10 MG TABLET (FP) PO SCH (21:12)
[2022-07-11] MEDS: MIRTAZAPINE 15 MG TABLET (FP) PO SCH (21:12)
[2022-07-12] MEDS: ACETAMINOPHEN 325 MG TABLET (FP) PO PRN ×2 (06:08→21:40)
[2022-07-12 07:05] VITALS: RESP 18
[2022-07-12] MEDS: AMOX TR/POTASSIUM CLAVULANATE 600 MG/5 ML PO SCH ×2 (08:51→18:27)
[2022-07-12] MEDS: sitaGLIPtin PHOSPHATE 50 MG TABLET PO SCH (09:54)
[2022-07-12] MEDS: DULoxetine HCL 30 MG CAPSULE.DR PO SCH (09:55)
[2022-07-12] MEDS: LOSARTAN POTASSIUM 25 MG TABLET PO SCH (09:55)
[2022-07-12] MEDS: ISOSORBIDE MONONITRATE 30 MG TAB.SR.24H (FP) PO SCH (09:56)
[2022-07-12] MEDS: POLYETHYLENE GLYCOL (HEALTHYLAX) 3350 17 GM PACKET PO SCH ×2 (09:58→21:41)
[2022-07-12] MEDS: ENTACAPONE 200 MG TABLET PO SCH ×3 (09:58→18:27)
[2022-07-12] MEDS: CARBIDOPA/LEVODOPA 25/250 TABLET (FP) PO SCH ×3 (09:58→18:28)
[2022-07-12] MEDS: HEPARIN NA (PORCINE) 5,000 UNITS/ML 1ML VIAL SQ SCH ×2 (09:59→21:40)
[2022-07-12] MEDS ORDERED: DULoxetine HCL 30 MG CAPSULE.DR PO SCH (21:13)
[2022-07-12] MEDS: QUEtiapine FUMARATE 25 MG TABLET PO SCH (21:40)
[2022-07-12] MEDS: ATORVASTATIN CA 10 MG TABLET (FP) PO SCH (21:40)
[2022-07-13] MEDS: AMOX TR/POTASSIUM CLAVULANATE 600 MG/5 ML PO SCH ×2 (08:28→16:54)
[2022-07-13] MEDS: POLYETHYLENE GLYCOL (HEALTHYLAX) 3350 17 GM PACKET PO SCH ×2 (10:09→22:03)
[2022-07-13] MEDS: HEPARIN NA (PORCINE) 5,000 UNITS/ML 1ML VIAL SQ SCH ×2 (10:09→22:02)
[2022-07-13] MEDS: ISOSORBIDE MONONITRATE 30 MG TAB.SR.24H (FP) PO SCH (10:10)
[2022-07-13] MEDS: LOSARTAN POTASSIUM 25 MG TABLET PO SCH (10:10)
[2022-07-13] MEDS: sitaGLIPtin PHOSPHATE 50 MG TABLET PO SCH (11:29)
[2022-07-13] MEDS: ACETAMINOPHEN 325 MG TABLET (FP) PO PRN (16:54)
[2022-07-13 19:17] VITALS: BP 150/60; PULSE 85; TEMP 97.4
[2022-07-13] MEDS: ATORVASTATIN CA 10 MG TABLET (FP) PO SCH (22:02)
[2022-07-13] MEDS: QUEtiapine FUMARATE 25 MG TABLET PO SCH (22:03)
== END 2022-07-13 23:00 ==
LOC: JER 19:00 → INTOOBSV 23:45 → UNDOADMOB 23:45 → JERBED 23:45 → J4S 07-10 06:16 → JERBED 07-10 06:16 → J4S 07-10 09:12
PROVIDERS: ADMIT Internal Medicine; ATTEND Internal Medicine
PROC: 3E023GC Introduction of Other Therapeutic Substance into Muscle, Percutaneous Approach (ICD-10-PCS; principal; 2022-07-10)
DX: G20 Parkinson's disease (principal); E11.9 Type 2 diabetes mellitus without complications; R29.6 Repeated falls; F41.9 Anxiety disorder, unspecified; F03.90 Unspecified dementia, unspecified severity, without behavioral disturbance, psychotic disturbance, mood disturbance, and anxiety; I10 Essential (primary) hypertension; Z86.73 Personal history of transient ischemic attack (TIA), and cerebral infarction without residual deficits; Z91.041 Radiographic dye allergy status; R44.3 Hallucinations, unspecified
CPT/HCPCS: 0241U-QW; 36415; 70450-TC; 71045-TC-FY; 80053; 81003; 82962; 84484; 85027; 87086; 93005; 93010; 96372; 97116-GP; 97161-GP; 99285-25; G0378; J1644

== ENCOUNTER 2022-10-22 09:36 | Observation (INO) | payer OTHER ==
[2022-10-22 09:49] VITALS: RESP 18; BMI 27.1
[2022-10-22 11:02] LABS: URINE APPEARANCE CLOUDY; URINE BILIRUBIN NEGATIVE (NEGATIVE); URINE COLOR YELLOW; URINE GLUCOSE (UA) NEGATIVE (NEGATIVE); URINE KETONE NEGATIVE (NEGATIVE); URINE LEUK ESTERASE NEGATIVE (NEGATIVE); URINE NITRITE NEGATIVE (NEGATIVE); URINE PROTEIN NEGATIVE (NEGATIVE); URINE UROBILINOGEN 0.2 mg/dL (0.2-1.0)
[2022-10-22 11:03] LABS: BASO % 1.1 % (0-2.0); EOS % 1.9 % (0-4.5); HEMATOCRIT 38.9 % (32.4-45.2); HEMOGLOBIN 12.2 GM/dL (10.7-15.3); LYMPH % 17.6 % (8-40); MCH 25.6 pg (25.7-33.7); MCHC 31.4 g/dl (32.0-36.0); MEAN CELL VOLUME 81.5 fl (80-96); MEAN PLT VOLUME 9.1 fl (7.5-11.1); MONO % 7.6 % (3.8-10.2); NEUT % 71.8 % (42.8-82.8); PLATELET COUNT 231 10^3/uL (134-434); RBC 4.77 M/mm3 (3.60-5.2); RDW 18.2 % (11.6-15.6); WHITE BLOOD COUNT 5.6 K/mm3 (4.0-10.0)
[2022-10-22 11:22] LABS: BLOOD UREA NITROGEN 18.3 mg/dL (7-18); CALCIUM 9.7 mg/dL (8.5-10.1)
[2022-10-22 11:25] LABS: CREATININE 0.7 mg/dL (0.55-1.3)
[2022-10-22 11:27] LABS: BILIRUBIN,TOTAL 0.4 mg/dL (0.2-1); TOT PROT 7.4 g/dl (6.4-8.2)
[2022-10-22] MEDS ORDERED: ACETAMINOPHEN 325 MG TABLET (FP) PO PRN (18:28)
[2022-10-23] MEDS ORDERED: ACETAMINOPHEN 1000 MG/100 ML BAG IVPB ONE (00:10)
[2022-10-23] MEDS ORDERED: hydrALAZINE HCL 20 MG/ML VIAL IVPB ONE (00:10)
[2022-10-23] MEDS ORDERED: MELATONIN 5 MG TABLETS PO ONE (00:12)
[2022-10-23] MEDS: MIRTAZAPINE 15 MG TABLET (FP) PO SCH ×2 (00:46→22:03)
[2022-10-23] MEDS: ATORVASTATIN CA 10 MG TABLET (FP) PO SCH ×2 (00:47→22:03)
[2022-10-23] MEDS: CARBIDOPA/LEVODOPA 25/250 TABLET (FP) PO SCH ×5 (00:47→22:03)
[2022-10-23] MEDS: POLYETHYLENE GLYCOL (HEALTHYLAX) 3350 17 GM PACKET PO SCH ×3 (00:54→22:03)
[2022-10-23] MEDS: ENTACAPONE 200 MG TABLET PO SCH ×5 (01:15→22:03)
[2022-10-23] MEDS: INSULIN (NOVOLOG) ASPART 100 UNITS/ML 10ML VIAL SQ SCH ×2 (07:10→17:11)
[2022-10-23] MEDS: LOSARTAN POTASSIUM 25 MG TABLET PO SCH (10:00)
[2022-10-23] MEDS ORDERED: sitaGLIPtin PHOSPHATE 50 MG TABLET PO SCH (10:00)
[2022-10-23] MEDS: ISOSORBIDE MONONITRATE 30 MG TAB.SR.24H (FP) PO SCH (10:00)
[2022-10-23] MEDS: DULoxetine HCL 30 MG CAPSULE.DR PO SCH (10:00)
[2022-10-23] MEDS: CEFTRIAXONE 1 GM in DEXTROSE 5%-WATER - 50 ML IVPB SCH (13:50)
[2022-10-23] MEDS: HEPARIN NA (PORCINE) 5,000 UNITS/ML 1ML VIAL SQ SCH (22:03)
[2022-10-24] MEDS: INSULIN (NOVOLOG) ASPART 100 UNITS/ML 10ML VIAL SQ SCH ×2 (06:30→17:08)
[2022-10-24] MEDS: CARBIDOPA/LEVODOPA 25/250 TABLET (FP) PO SCH ×4 (09:18→22:21)
[2022-10-24] MEDS: ENTACAPONE 200 MG TABLET PO SCH ×4 (09:18→22:19)
[2022-10-24] MEDS: LOSARTAN POTASSIUM 25 MG TABLET PO SCH (09:18)
[2022-10-24] MEDS: POLYETHYLENE GLYCOL (HEALTHYLAX) 3350 17 GM PACKET PO SCH ×2 (09:18→22:21)
[2022-10-24] MEDS: DULoxetine HCL 30 MG CAPSULE.DR PO SCH (09:18)
[2022-10-24] MEDS: CEFTRIAXONE 1 GM in DEXTROSE 5%-WATER - 50 ML IVPB SCH (09:19)
[2022-10-24] MEDS: HEPARIN NA (PORCINE) 5,000 UNITS/ML 1ML VIAL SQ SCH ×2 (09:19→22:19)
[2022-10-24] MEDS: ISOSORBIDE MONONITRATE 30 MG TAB.SR.24H (FP) PO SCH (09:19)
[2022-10-24] MEDS: oxyCODONE HCL 5 MG TABLET PO PRN ×2 (09:21→16:03)
[2022-10-24] MEDS: LIDOCAINE 5% TOPICAL PATCH TP SCH (11:54)
[2022-10-24] MEDS: MIRTAZAPINE 15 MG TABLET (FP) PO SCH (22:19)
[2022-10-24] MEDS ORDERED: MELATONIN 5 MG TABLETS PO PRN (22:20)
[2022-10-24] MEDS: ATORVASTATIN CA 10 MG TABLET (FP) PO SCH (22:20)
[2022-10-24] MEDS: LIDOCAINE PATCH REMOVAL MC SCH (22:21)
[2022-10-25] MEDS: INSULIN (NOVOLOG) ASPART 100 UNITS/ML 10ML VIAL SQ SCH ×2 (07:28→17:10)
[2022-10-25] MEDS: ISOSORBIDE MONONITRATE 30 MG TAB.SR.24H (FP) PO SCH (09:40)
[2022-10-25] MEDS: HEPARIN NA (PORCINE) 5,000 UNITS/ML 1ML VIAL SQ SCH ×2 (09:41→21:45)
[2022-10-25] MEDS: LOSARTAN POTASSIUM 25 MG TABLET PO SCH (09:41)
[2022-10-25] MEDS: DULoxetine HCL 30 MG CAPSULE.DR PO SCH (09:41)
[2022-10-25] MEDS: CARBIDOPA/LEVODOPA 25/250 TABLET (FP) PO SCH ×4 (09:41→21:44)
[2022-10-25] MEDS: POLYETHYLENE GLYCOL (HEALTHYLAX) 3350 17 GM PACKET PO SCH ×2 (09:41→21:45)
[2022-10-25] MEDS: CEFTRIAXONE 1 GM in DEXTROSE 5%-WATER - 50 ML IVPB SCH (09:42)
[2022-10-25] MEDS: LIDOCAINE 5% TOPICAL PATCH TP SCH (09:45)
[2022-10-25] MEDS: ENTACAPONE 200 MG TABLET PO SCH ×4 (09:46→21:44)
[2022-10-25] MEDS: oxyCODONE HCL 5 MG TABLET PO PRN (11:37)
[2022-10-25] MEDS ORDERED: SODIUM CHLORIDE NASAL SPRAY 44 ML BOTTLE NS PRN (13:01)
[2022-10-25] MEDS: ATORVASTATIN CA 10 MG TABLET (FP) PO SCH (21:44)
[2022-10-25] MEDS: MIRTAZAPINE 15 MG TABLET (FP) PO SCH (21:44)
[2022-10-25] MEDS: LIDOCAINE PATCH REMOVAL MC SCH (21:46)
[2022-10-26 06:51] VITALS: BP 174/77; PULSE 74; TEMP 97.3
[2022-10-26] MEDS: oxyCODONE HCL 5 MG TABLET PO PRN (07:39)
[2022-10-26] MEDS: INSULIN (NOVOLOG) ASPART 100 UNITS/ML 10ML VIAL SQ SCH (07:44)
[2022-10-26] MEDS: HEPARIN NA (PORCINE) 5,000 UNITS/ML 1ML VIAL SQ SCH (10:38)
[2022-10-26] MEDS: CARBIDOPA/LEVODOPA 25/250 TABLET (FP) PO SCH (10:39)
[2022-10-26] MEDS: DULoxetine HCL 30 MG CAPSULE.DR PO SCH (10:39)
[2022-10-26] MEDS: ENTACAPONE 200 MG TABLET PO SCH (10:40)
[2022-10-26] MEDS: POLYETHYLENE GLYCOL (HEALTHYLAX) 3350 17 GM PACKET PO SCH (10:40)
[2022-10-26] MEDS: LIDOCAINE 5% TOPICAL PATCH TP SCH (10:40)
[2022-10-26] MEDS ORDERED: CEPHALEXIN MONOHYDRATE 500 MG CAPSULE (UD) PO SCH (11:00)
[2022-10-26] MEDS: CEFTRIAXONE 1 GM in DEXTROSE 5%-WATER - 50 ML IVPB SCH (11:38)
[2022-10-26] MEDS: ISOSORBIDE MONONITRATE 30 MG TAB.SR.24H (FP) PO SCH (12:01)
[2022-10-26] MEDS: LOSARTAN POTASSIUM 25 MG TABLET PO SCH (12:01)
== END 2022-10-26 12:23 | disposition home health service (06) ==
LOC: JER 09:36 → JERBED 15:19 → J8W 23:19
PROVIDERS: ADMIT Internal Medicine; ATTEND Nurse Practitioner Acute Care
PROC: 3E033NZ Introduction of Analgesics, Hypnotics, Sedatives into Peripheral Vein, Percutaneous Approach (ICD-10-PCS; principal; 2022-10-22)
PROC: 3E023GC Introduction of Other Therapeutic Substance into Muscle, Percutaneous Approach (ICD-10-PCS; 2022-10-22)
PROC: 3E033GC Introduction of Other Therapeutic Substance into Peripheral Vein, Percutaneous Approach (ICD-10-PCS; 2022-10-22)
DX: R41.82 Altered mental status, unspecified (principal); G20 Parkinson's disease; C18.9 Malignant neoplasm of colon, unspecified; E11.9 Type 2 diabetes mellitus without complications; I10 Essential (primary) hypertension; Z87.440 Personal history of urinary (tract) infections; Z91.041 Radiographic dye allergy status; Z86.73 Personal history of transient ischemic attack (TIA), and cerebral infarction without residual deficits
CPT/HCPCS: 36415; 70450-TC; 71045-TC-FY; 72125-TC; 80053; 81003; 82962; 83605; 84484; 85025; 87086; 93005; 93010; 96372; 96374; 96375; 97116-GP; 97161-GP; 99285-25; C9803-CS; G0378; J1644; U0003; U0005

== ENCOUNTER 2022-12-20 14:33 | Inpatient (IN) | payer OTHER ==
[2022-12-20 14:59] VITALS: BMI 25.2
[2022-12-20 16:02] LABS: EOS % 2.9 % (0-4.5); HEMATOCRIT 30.4 % (32.4-45.2); LYMPH % 30.1 % (8-40); MCH 26.6 pg (25.7-33.7); MCHC 32.7 g/dl (32.0-36.0); MEAN CELL VOLUME 81.4 fl (80-96); MEAN PLT VOLUME 8.5 fl (7.5-11.1); MONO % 10.8 % (3.8-10.2); NEUT % 55.2 % (42.8-82.8); PLATELET COUNT 266 10^3/uL (134-434); RBC 3.74 M/mm3 (3.60-5.2); RDW 17.7 % (11.6-15.6); WHITE BLOOD COUNT 4.6 K/mm3 (4.0-10.0)
[2022-12-20 16:18] LABS: ALBUMIN 3.5 g/dl (3.4-5.0); CALCIUM 8.9 mg/dL (8.5-10.1)
[2022-12-20 16:19] LABS: BLOOD UREA NITROGEN 25.9 mg/dL (7-18)
[2022-12-20 16:22] LABS: CREATININE 0.7 mg/dL (0.55-1.3)
[2022-12-20 16:24] LABS: BILIRUBIN,TOTAL 0.2 mg/dL (0.2-1); TOT PROT 6.2 g/dl (6.4-8.2)
[2022-12-20 16:40] LABS: EPI CELLS 20 /uL (0-25.1); HYALINE CASTS 1 /uL (0-3.1); URINE APPEARANCE CLEAR; URINE BACTERIA >9,000 /uL (0-1359); URINE BILIRUBIN NEGATIVE (NEGATIVE); URINE COLOR DK YELLOW; URINE GLUCOSE (UA) NEGATIVE (NEGATIVE); URINE KETONE TRACE (NEGATIVE); URINE LEUK ESTERASE TRACE (NEGATIVE); URINE NITRITE POSITIVE (NEGATIVE); URINE PROTEIN NEGATIVE (NEGATIVE); URINE UROBILINOGEN 0.2 mg/dL (0.2-1.0); URINE WBC 46 /uL (0-25.8)
[2022-12-20] MEDS ORDERED: CEFTRIAXONE 1,000 MG in DEXTROSE 5%-WATER - 50 ML IVPB ONE (16:56)
[2022-12-20] MEDS ORDERED: CEFTRIAXONE 1 GM/50 ML BAG ONE (17:42)
[2022-12-20] MEDS ORDERED: ACETAMINOPHEN 325 MG TABLET (FP) PO PRN (18:13)
[2022-12-20] MEDS ORDERED: LACTATED RINGERS SOLUTION 1,000 ML IV SCH (18:15)
[2022-12-20] MEDS ORDERED: oxyCODONE HCL 5 MG TABLET PO PRN (18:17)
[2022-12-20 18:19] LABS: URINE RBC 89 /uL (0-23.9)
[2022-12-20] MEDS ORDERED: CARBIDOPA/LEVODOPA 25/250 TABLET (FP) ONE (22:43)
[2022-12-20] MEDS ORDERED: ATORVASTATIN CA 10 MG TABLET (FP) ONE (22:43)
[2022-12-20] MEDS ORDERED: POLYETHYLENE GLYCOL (HEALTHYLAX) 3350 17 GM PACKET ONE (22:44)
[2022-12-20] MEDS ORDERED: oxyCODONE HCL 5 MG TABLET ONE (22:44)
[2022-12-20] MEDS ORDERED: MIRTAZAPINE 15 MG TABLET (FP) ONE (22:44)
[2022-12-20] MEDS: CARBIDOPA/LEVODOPA 25/250 TABLET (FP) PO SCH (22:57)
[2022-12-20] MEDS: POLYETHYLENE GLYCOL (HEALTHYLAX) 3350 17 GM PACKET PO SCH (22:57)
[2022-12-20] MEDS: ATORVASTATIN CA 10 MG TABLET (FP) PO SCH (22:57)
[2022-12-20] MEDS: MIRTAZAPINE 15 MG TABLET (FP) PO SCH (22:57)
[2022-12-21] MEDS ORDERED: LOSARTAN POTASSIUM 25 MG TABLET PO SCH ×2 (06:20→10:00)
[2022-12-21] MEDS ORDERED: ACETAMINOPHEN 325 MG TABLET (FP) ONE (06:26)
[2022-12-21] MEDS ORDERED: LOSARTAN POTASSIUM 25 MG TABLET ONE (06:26)
[2022-12-21] MEDS ORDERED: LOSARTAN POTASSIUM 25 MG TABLET PO ONE (06:51)
[2022-12-21 07:17] LABS: CALCIUM 9.3 mg/dL (8.5-10.1)
[2022-12-21 07:19] LABS: BLOOD UREA NITROGEN 17.5 mg/dL (7-18); INR 1.01 (0.83-1.09); MAGNESIUM 2.2 mg/dL (1.8-2.4); PROTHROMBIN TIME (PATIENT) 11.7 SEC (9.7-13.0)
[2022-12-21 07:20] LABS: CREATININE 0.5 mg/dL (0.55-1.3); PHOSPHOROUS 3.1 mg/dL (2.5-4.9)
[2022-12-21 07:21] LABS: ACTIVATED PTT 28.2 SECONDS (25.2-36.5)
[2022-12-21 07:22] LABS: TOT PROT 7.4 g/dl (6.4-8.2)
[2022-12-21 07:26] LABS: BILIRUBIN,TOTAL 0.5 mg/dL (0.2-1)
[2022-12-21 07:31] LABS: BASO % 0.6 % (0-2.0); EOS % 2.2 % (0-4.5); HEMATOCRIT 36.8 % (32.4-45.2); HEMOGLOBIN 12.2 GM/dL (10.7-15.3); LYMPH % 25.2 % (8-40); MCH 26.9 pg (25.7-33.7); MCHC 33.1 g/dl (32.0-36.0); MEAN CELL VOLUME 81.4 fl (80-96); MEAN PLT VOLUME 8.6 fl (7.5-11.1); PLATELET COUNT 258 10^3/uL (134-434); RBC 4.53 M/mm3 (3.60-5.2); RDW 17.6 % (11.6-15.6); WHITE BLOOD COUNT 5.6 K/mm3 (4.0-10.0)
[2022-12-21] MEDS ORDERED: LOSARTAN POTASSIUM 50 MG TABLET PO SCH (10:00)
[2022-12-21] MEDS: ENOXAPARIN NA (PORCINE) 30 MG/0.3 ML DISP.SYRIN SQ SCH (12:04)
[2022-12-21] MEDS: CEFTRIAXONE 1 GM in DEXTROSE 5%-WATER - 50 ML IVPB SCH (12:05)
[2022-12-21] MEDS: LOSARTAN POTASSIUM 25 MG TABLET PO SCH (12:05)
[2022-12-21] MEDS: DULoxetine HCL 30 MG CAPSULE.DR PO SCH (12:06)
[2022-12-21] MEDS: ISOSORBIDE MONONITRATE 30 MG TAB.SR.24H (FP) PO SCH (12:06)
[2022-12-21] MEDS: DOCUSATE SODIUM 100 MG CAPSULE (FP) PO SCH (12:06)
[2022-12-21] MEDS: CARBIDOPA/LEVODOPA 25/250 TABLET (FP) PO SCH ×4 (12:06→23:29)
[2022-12-21] MEDS: POLYETHYLENE GLYCOL (HEALTHYLAX) 3350 17 GM PACKET PO SCH ×2 (12:06→23:29)
[2022-12-21] MEDS ORDERED: SODIUM CHLORIDE NASAL SPRAY 44 ML BOTTLE NS PRN (15:34)
[2022-12-21] MEDS ORDERED: MELATONIN 5 MG TABLETS PO PRN (15:42)
[2022-12-21] MEDS ORDERED: INSULIN SLIDING SCALE (NOVOLOG) 1 VIAL SQ SCH (16:30)
[2022-12-21] MEDS: ENTACAPONE 200 MG TABLET PO SCH ×2 (17:25→23:28)
[2022-12-21] MEDS: ATORVASTATIN CA 10 MG TABLET (FP) PO SCH (23:28)
[2022-12-21] MEDS: MIRTAZAPINE 15 MG TABLET (FP) PO SCH (23:29)
[2022-12-21] MEDS: INSULIN SLIDING SCALE (NOVOLOG) 1 VIAL SQ SCH (23:40)
[2022-12-22] MEDS: INSULIN SLIDING SCALE (NOVOLOG) 1 VIAL SQ SCH ×4 (07:13→22:21)
[2022-12-22] MEDS: ACETAMINOPHEN 325 MG TABLET (FP) PO PRN ×2 (09:31→17:03)
[2022-12-22] MEDS: DULoxetine HCL 30 MG CAPSULE.DR PO SCH (09:32)
[2022-12-22] MEDS: CEFTRIAXONE 1 GM in DEXTROSE 5%-WATER - 50 ML IVPB SCH (09:33)
[2022-12-22] MEDS: ENOXAPARIN NA (PORCINE) 30 MG/0.3 ML DISP.SYRIN SQ SCH (09:33)
[2022-12-22] MEDS: ISOSORBIDE MONONITRATE 30 MG TAB.SR.24H (FP) PO SCH (09:33)
[2022-12-22] MEDS: POLYETHYLENE GLYCOL (HEALTHYLAX) 3350 17 GM PACKET PO SCH ×2 (09:34→22:11)
[2022-12-22] MEDS: LOSARTAN POTASSIUM 25 MG TABLET PO SCH (09:34)
[2022-12-22] MEDS: CARBIDOPA/LEVODOPA 25/250 TABLET (FP) PO SCH ×4 (09:34→22:12)
[2022-12-22] MEDS: DOCUSATE SODIUM 100 MG CAPSULE (FP) PO SCH (09:34)
[2022-12-22] MEDS: ENTACAPONE 200 MG TABLET PO SCH ×4 (11:32→22:12)
[2022-12-22] MEDS ORDERED: INSULIN (NOVOLOG) ASPART 100 UNITS/ML 10ML VIAL ONE (21:13)
[2022-12-22] MEDS: ATORVASTATIN CA 10 MG TABLET (FP) PO SCH (22:12)
[2022-12-22] MEDS: MIRTAZAPINE 15 MG TABLET (FP) PO SCH (22:12)
[2022-12-23] MEDS ORDERED: INSULIN (NOVOLOG) ASPART 100 UNITS/ML 10ML VIAL ONE (05:44)
[2022-12-23] MEDS: INSULIN SLIDING SCALE (NOVOLOG) 1 VIAL SQ SCH ×4 (06:16→23:34)
[2022-12-23 08:37] LABS: HEMATOCRIT 35.3 % (32.4-45.2); HEMOGLOBIN 11.5 GM/dL (10.7-15.3); MCH 26.5 pg (25.7-33.7); MCHC 32.6 g/dl (32.0-36.0); MEAN CELL VOLUME 81.2 fl (80-96); MEAN PLT VOLUME 8.7 fl (7.5-11.1); PLATELET COUNT 251 10^3/uL (134-434); RBC 4.34 M/mm3 (3.60-5.2); RDW 17.5 % (11.6-15.6); WHITE BLOOD COUNT 5.3 K/mm3 (4.0-10.0)
[2022-12-23] MEDS: ACETAMINOPHEN 325 MG TABLET (FP) PO PRN (09:02)
[2022-12-23] MEDS: LOSARTAN POTASSIUM 25 MG TABLET PO SCH (09:07)
[2022-12-23] MEDS: DOCUSATE SODIUM 100 MG CAPSULE (FP) PO SCH (09:07)
[2022-12-23] MEDS: ISOSORBIDE MONONITRATE 30 MG TAB.SR.24H (FP) PO SCH (09:08)
[2022-12-23] MEDS: DULoxetine HCL 30 MG CAPSULE.DR PO SCH (09:11)
[2022-12-23] MEDS: CEFTRIAXONE 1 GM in DEXTROSE 5%-WATER - 50 ML IVPB SCH (09:14)
[2022-12-23] MEDS: ENOXAPARIN NA (PORCINE) 30 MG/0.3 ML DISP.SYRIN SQ SCH (09:14)
[2022-12-23] MEDS: POLYETHYLENE GLYCOL (HEALTHYLAX) 3350 17 GM PACKET PO SCH ×2 (09:14→22:24)
[2022-12-23] MEDS: CARBIDOPA/LEVODOPA 25/250 TABLET (FP) PO SCH ×5 (09:26→22:39)
[2022-12-23] MEDS: ENTACAPONE 200 MG TABLET PO SCH ×5 (09:27→22:36)
[2022-12-23 09:34] LABS: ALBUMIN 3.6 g/dl (3.4-5.0); BLOOD UREA NITROGEN 19.9 mg/dL (7-18); MAGNESIUM 2.2 mg/dL (1.8-2.4)
[2022-12-23 09:37] LABS: CREATININE 0.7 mg/dL (0.55-1.3)
[2022-12-23 09:38] LABS: BILIRUBIN,TOTAL 0.3 mg/dL (0.2-1); TOT PROT 6.7 g/dl (6.4-8.2)
[2022-12-23 10:56] LABS: ANISOCYTOSIS 0; HELMET CELLS 0; HOWELL-JOLLY BODIES 0; MACROCYTOSIS 0; OVALOCYTE 0; ROULEAU 0; SICKELED CELLS 0; TARGET CELLS 0; TEAR DROP CELLS 0; TOXIC GRANULATION 0
[2022-12-23] MEDS: ACETAMINOPHEN 325 MG TABLET (FP) PO SCH ×4 (11:04→23:37)
[2022-12-23] MEDS: BENZOCAINE/MENTH/CETYLPYRD CL 1 EACH LOZENGE MM PRN (13:31)
[2022-12-23] MEDS ORDERED: LOSARTAN POTASSIUM 25 MG TABLET PO ONE (14:56)
[2022-12-23] MEDS ORDERED: LOSARTAN POTASSIUM 50 MG TABLET PO SCH (14:56)
[2022-12-23] MEDS: ATORVASTATIN CA 10 MG TABLET (FP) PO SCH ×2 (22:23→22:40)
[2022-12-23] MEDS: MIRTAZAPINE 15 MG TABLET (FP) PO SCH ×2 (22:23→22:39)
[2022-12-24] MEDS: ACETAMINOPHEN 325 MG TABLET (FP) PO SCH ×2 (05:30→10:13)
[2022-12-24] MEDS: INSULIN SLIDING SCALE (NOVOLOG) 1 VIAL SQ SCH ×2 (06:37→12:17)
[2022-12-24 08:58] LABS: BASO % 0.5 % (0-2.0); EOS % 0.7 % (0-4.5); HEMATOCRIT 35.9 % (32.4-45.2); HEMOGLOBIN 12.1 GM/dL (10.7-15.3); LYMPH % 20.3 % (8-40); MCH 27.4 pg (25.7-33.7); MCHC 33.8 g/dl (32.0-36.0); MEAN CELL VOLUME 81.1 fl (80-96); MEAN PLT VOLUME 8.7 fl (7.5-11.1); MONO % 6.8 % (3.8-10.2); NEUT % 71.7 % (42.8-82.8); PLATELET COUNT 277 10^3/uL (134-434); RBC 4.43 M/mm3 (3.60-5.2); RDW 16.9 % (11.6-15.6); WHITE BLOOD COUNT 5.7 K/mm3 (4.0-10.0)
[2022-12-24 09:47] LABS: ALBUMIN 3.6 g/dl (3.4-5.0)
[2022-12-24 09:48] LABS: CREATININE 0.7 mg/dL (0.55-1.3)
[2022-12-24 09:49] LABS: BILIRUBIN,TOTAL 0.3 mg/dL (0.2-1)
[2022-12-24 09:50] LABS: BLOOD UREA NITROGEN 17.9 mg/dL (7-18)
[2022-12-24 09:51] LABS: CALCIUM 9.5 mg/dL (8.5-10.1)
[2022-12-24 09:54] LABS: MAGNESIUM 2.1 mg/dL (1.8-2.4)
[2022-12-24] MEDS: DOCUSATE SODIUM 100 MG CAPSULE (FP) PO SCH (10:31)
[2022-12-24] MEDS: POLYETHYLENE GLYCOL (HEALTHYLAX) 3350 17 GM PACKET PO SCH (10:31)
[2022-12-24] MEDS: ENTACAPONE 200 MG TABLET PO SCH ×2 (10:55→13:35)
[2022-12-24] MEDS: CEFTRIAXONE 1 GM in DEXTROSE 5%-WATER - 50 ML IVPB SCH (11:01)
[2022-12-24] MEDS: DULoxetine HCL 30 MG CAPSULE.DR PO SCH (11:02)
[2022-12-24] MEDS: CARBIDOPA/LEVODOPA 25/250 TABLET (FP) PO SCH ×2 (11:03→13:36)
[2022-12-24] MEDS: ISOSORBIDE MONONITRATE 30 MG TAB.SR.24H (FP) PO SCH (11:03)
[2022-12-24] MEDS: BENZOCAINE/MENTH/CETYLPYRD CL 1 EACH LOZENGE MM PRN (11:05)
[2022-12-24] MEDS: ENOXAPARIN NA (PORCINE) 30 MG/0.3 ML DISP.SYRIN SQ SCH (11:05)
[2022-12-24] MEDS ORDERED: oxyCODONE HCL 5 MG TABLET PO PRN (11:08)
[2022-12-24] MEDS ORDERED: INSULIN (NOVOLOG) ASPART 100 UNITS/ML 10ML VIAL ONE (12:12)
[2022-12-24 15:00] VITALS: BP 116/88; PULSE 83; RESP 18; TEMP 97.4
[2022-12-24] MEDS ORDERED: CEFUROXIME AXETIL 250 MG TABLET PO SCH (22:00)
== END 2022-12-24 16:32 | disposition home health service (06) | DRG 689 ==
LOC: JER 14:33 → JERBED 17:24 → J8W 12-21 09:38 → OBSVTOIN 12-22 08:37
PROVIDERS: ADMIT Internal Medicine; ATTEND Nurse Practitioner Family
DX: N39.0 Urinary tract infection, site not specified (principal); G93.41 Metabolic encephalopathy; C18.9 Malignant neoplasm of colon, unspecified; G20 Parkinson's disease; E11.9 Type 2 diabetes mellitus without complications; F03.90 Unspecified dementia, unspecified severity, without behavioral disturbance, psychotic disturbance, mood disturbance, and anxiety
CPT/HCPCS: 36415; 70450-TC; 72192-TC; 73521-TC-FY; 80053; 81003; 82962; 83735; 84100; 84484; 85025; 85610; 85730; 87086; 87186; 93005; 93010; 97116-GP; 97161-GP; 99285-25; C9803-CS; G0378; U0003; U0005

== ENCOUNTER 2023-08-29 09:10 | Inpatient (IN) | payer OTHER ==
[2023-08-29 11:16] LABS: BASO % 0.3 % (0-2.0); EOS % 0.7 % (0-4.5); HEMATOCRIT 31.4 % (32.4-45.2); LYMPH % 9.3 % (8-40); MCH 25.4 pg (25.7-33.7); MEAN CELL VOLUME 79.4 fl (80-96); MONO % 8.4 % (3.8-10.2); NEUT % 81.3 % (42.8-82.8); PLATELET COUNT 384 10^3/uL (134-434); RBC 3.95 M/mm3 (3.60-5.2); RDW 15.5 % (11.6-15.6); WHITE BLOOD COUNT 11.2 K/mm3 (4.0-10.0)
[2023-08-29 11:18] LABS: EPI CELLS 30 /uL (0-25.1); HYALINE CASTS 8 /uL (0-3.1); URINE APPEARANCE TURBID; URINE BACTERIA >9,000 /uL (0-1359); URINE BILIRUBIN NEGATIVE (NEGATIVE); URINE COLOR DK YELLOW; URINE GLUCOSE (UA) NEGATIVE (NEGATIVE); URINE KETONE TRACE (NEGATIVE); URINE LEUK ESTERASE 2+ (NEGATIVE); URINE NITRITE POSITIVE (NEGATIVE); URINE PROTEIN 1+ (NEGATIVE); URINE WBC 387 /uL (0-25.8)
[2023-08-29 11:21] LABS: POTASSIUM 3.7 mmol/L (3.5-5.1); URINE RBC 20.2 /uL (0-23.9); YEAST NEGATIVE (NEGATIVE)
[2023-08-29 11:23] LABS: CALCIUM 8.4 mg/dL (8.5-10.1)
[2023-08-29 11:24] LABS: ALBUMIN 2.6 g/dl (3.4-5.0); BLOOD UREA NITROGEN 13.3 mg/dL (7-18)
[2023-08-29] MEDS ORDERED: CEFTRIAXONE 1,000 MG in DEXTROSE 5%-WATER - 50 ML IVPB ONE (11:24)
[2023-08-29 11:27] LABS: CREATININE 0.5 mg/dL (0.55-1.3)
[2023-08-29 11:28] LABS: BILIRUBIN,TOTAL 0.3 mg/dL (0.2-1); TOT PROT 5.8 g/dl (6.4-8.2)
[2023-08-29] MEDS ORDERED: CEFTRIAXONE 1 GM/50 ML BAG ONE (11:30)
[2023-08-29] MEDS ORDERED: PIPERACILLIN/TAZOB 4.5 GM 4.5 GM in DEXTROSE 5%-WATER 100 ML IVPB ONE (11:49)
[2023-08-29] MEDS ORDERED: PIPERACILLIN/TAZOB 4.5 GM 4.5 GM/100 ML BAG IVPB ONE (12:02)
[2023-08-29] MEDS ORDERED: oxyCODONE HCL 5 MG TABLET PO PRN ×2 (12:07→17:42)
[2023-08-29] MEDS: ENTACAPONE 200 MG TABLET PO SCH ×3 (14:00→23:19)
[2023-08-29] MEDS: CARBIDOPA/LEVODOPA 25/250 TABLET (FP) PO SCH ×3 (14:00→23:25)
[2023-08-29] MEDS ORDERED: SODIUM CHLORIDE 0.9% 500 ML INFUS.BAG IV ONE (16:13)
[2023-08-29] MEDS ORDERED: oxyCODONE HCL 5 MG TABLET ONE (16:31)
[2023-08-29] MEDS ORDERED: CARBIDOPA/LEVODOPA 25/250 TABLET (FP) ONE (17:54)
[2023-08-29] MEDS ORDERED: QUEtiapine FUMARATE 25 MG TABLET PO SCH (22:00)
[2023-08-29] MEDS: MIRTAZAPINE 15 MG TABLET (FP) PO SCH (23:25)
[2023-08-29] MEDS: ATORVASTATIN CA 10 MG TABLET (FP) PO SCH (23:25)
[2023-08-29] MEDS ORDERED: QUEtiapine FUMARATE 25 MG TABLET ONE (23:37)
[2023-08-29] MEDS ORDERED: MIRTAZAPINE 15 MG TABLET (FP) ONE ×2 (23:37)
[2023-08-29] MEDS ORDERED: ATORVASTATIN CA 20 MG TABLET (FP) ONE (23:37)
[2023-08-29] MEDS ORDERED: CARBIDOPA/LEVODOPA 25/100 TABLET (FP) ONE (23:37)
[2023-08-30 10:42] LABS: BASO % 0.6 % (0-2.0); EOS % 0.6 % (0-4.5); HEMATOCRIT 29.4 % (32.4-45.2); HEMOGLOBIN 9.5 GM/dL (10.7-15.3); LYMPH % 12.1 % (8-40); MCH 26.4 pg (25.7-33.7); MCHC 32.4 g/dl (32.0-36.0); MEAN CELL VOLUME 81.5 fl (80-96); MEAN PLT VOLUME 8.1 fl (7.5-11.1); MONO % 7.6 % (3.8-10.2); NEUT % 79.1 % (42.8-82.8); RDW 15.2 % (11.6-15.6); WHITE BLOOD COUNT 10.9 K/mm3 (4.0-10.0)
[2023-08-30 10:43] LABS: PLATELET COUNT 289 10^3/uL (134-434)
[2023-08-30 10:57] LABS: POTASSIUM 3.7 mmol/L (3.5-5.1)
[2023-08-30 11:01] LABS: BLOOD UREA NITROGEN 14.4 mg/dL (7-18)
[2023-08-30 11:03] LABS: CALCIUM 8.4 mg/dL (8.5-10.1)
[2023-08-30 11:04] LABS: MAGNESIUM 2.1 mg/dL (1.8-2.4)
[2023-08-30 11:05] LABS: CREATININE 0.6 mg/dL (0.55-1.3); PHOSPHOROUS 3.9 mg/dL (2.5-4.9)
[2023-08-30] MEDS: ENOXAPARIN NA (PORCINE) 40 MG/0.4 ML DISP.SYRIN SQ SCH (12:14)
[2023-08-30] MEDS: ENTACAPONE 200 MG TABLET PO SCH ×4 (12:14→21:35)
[2023-08-30] MEDS: DULoxetine HCL 30 MG CAPSULE.DR PO SCH (12:15)
[2023-08-30] MEDS: LOSARTAN POTASSIUM 25 MG TABLET PO SCH (12:16)
[2023-08-30] MEDS: CARBIDOPA/LEVODOPA 25/250 TABLET (FP) PO SCH ×4 (12:16→21:35)
[2023-08-30] MEDS: ISOSORBIDE MONONITRATE 30 MG TAB.SR.24H (FP) PO SCH (12:17)
[2023-08-30] MEDS: CEFTRIAXONE 1 GM in DEXTROSE 5%-WATER - 50 ML IVPB SCH (12:18)
[2023-08-30] MEDS: FAMOTIDINE 20 MG TABLET PO SCH (12:18)
[2023-08-30] MEDS: SODIUM CHLORIDE 1,000 ML IV SCH (12:49)
[2023-08-30] MEDS: MIRTAZAPINE 15 MG TABLET (FP) PO SCH (21:35)
[2023-08-30] MEDS: ATORVASTATIN CA 10 MG TABLET (FP) PO SCH (21:35)
[2023-08-31] MEDS: SODIUM CHLORIDE 1,000 ML IV SCH ×2 (05:56→10:18)
[2023-08-31] MEDS ORDERED: DEXTROSE 50%-WATER 25 GM/50 ML DISP.SYRIN ONE (06:21)
[2023-08-31] MEDS ORDERED: DEXTROSE 50%-WATER - 25 GM/50 ML VIAL IVPUSH ONE (06:23)
[2023-08-31] MEDS: DEXTROSE 50%-WATER 25 GM/50 ML DISP.SYRIN IVPUSH ONE ×2 (06:27→06:31)
[2023-08-31 08:28] LABS: HEMATOCRIT 33.6 % (32.4-45.2); HEMOGLOBIN 10.8 GM/dL (10.7-15.3); MCH 25.6 pg (25.7-33.7); MEAN CELL VOLUME 79.9 fl (80-96); MEAN PLT VOLUME 7.3 fl (7.5-11.1); PLATELET COUNT 389 10^3/uL (134-434); RBC 4.21 M/mm3 (3.60-5.2); RDW 15.6 % (11.6-15.6); WHITE BLOOD COUNT 7.8 K/mm3 (4.0-10.0)
[2023-08-31 08:50] LABS: POTASSIUM 3.8 mmol/L (3.5-5.1)
[2023-08-31 08:51] LABS: CALCIUM 8.9 mg/dL (8.5-10.1)
[2023-08-31 08:52] LABS: BLOOD UREA NITROGEN 15.5 mg/dL (7-18)
[2023-08-31 08:55] LABS: CREATININE 0.5 mg/dL (0.55-1.3)
[2023-08-31] MEDS: ENOXAPARIN NA (PORCINE) 40 MG/0.4 ML DISP.SYRIN SQ SCH (10:15)
[2023-08-31] MEDS: CEFTRIAXONE 1 GM in DEXTROSE 5%-WATER - 50 ML IVPB SCH (10:16)
[2023-08-31] MEDS: FAMOTIDINE 20 MG TABLET PO SCH (10:17)
[2023-08-31] MEDS: LOSARTAN POTASSIUM 25 MG TABLET PO SCH (10:17)
[2023-08-31] MEDS: ENTACAPONE 200 MG TABLET PO SCH ×4 (10:17→23:26)
[2023-08-31] MEDS: DULoxetine HCL 30 MG CAPSULE.DR PO SCH (10:17)
[2023-08-31] MEDS: ISOSORBIDE MONONITRATE 30 MG TAB.SR.24H (FP) PO SCH (10:18)
[2023-08-31] MEDS: CARBIDOPA/LEVODOPA 25/250 TABLET (FP) PO SCH ×4 (10:20→23:26)
[2023-08-31] MEDS: ATORVASTATIN CA 10 MG TABLET (FP) PO SCH (22:07)
[2023-08-31] MEDS: MIRTAZAPINE 15 MG TABLET (FP) PO SCH (22:07)
[2023-08-31] MEDS: MELATONIN 5 MG TABLETS PO PRN (22:08)
[2023-09-01 09:05] LABS: BASO % 0.5 % (0-2.0); HEMATOCRIT 33.9 % (32.4-45.2); HEMOGLOBIN 10.7 GM/dL (10.7-15.3); LYMPH % 17.2 % (8-40); MCH 25.6 pg (25.7-33.7); MCHC 31.4 g/dl (32.0-36.0); MEAN CELL VOLUME 81.5 fl (80-96); MEAN PLT VOLUME 8.2 fl (7.5-11.1); MONO % 7.6 % (3.8-10.2); NEUT % 71.7 % (42.8-82.8); PLATELET COUNT 371 10^3/uL (134-434); RBC 4.16 M/mm3 (3.60-5.2); RDW 15.6 % (11.6-15.6)
[2023-09-01 09:31] LABS: POTASSIUM 3.7 mmol/L (3.5-5.1)
[2023-09-01 09:33] LABS: CALCIUM 8.6 mg/dL (8.5-10.1)
[2023-09-01 09:34] LABS: ALBUMIN 2.7 g/dl (3.4-5.0); BLOOD UREA NITROGEN 8.5 mg/dL (7-18); MAGNESIUM 2.1 mg/dL (1.8-2.4)
[2023-09-01 09:37] LABS: CREATININE 0.5 mg/dL (0.55-1.3); PHOSPHOROUS 2.6 mg/dL (2.5-4.9)
[2023-09-01 09:38] LABS: BILIRUBIN,TOTAL 0.3 mg/dL (0.2-1); TOT PROT 6.1 g/dl (6.4-8.2)
[2023-09-01] MEDS: CEFTRIAXONE 1 GM in DEXTROSE 5%-WATER - 50 ML IVPB SCH (10:38)
[2023-09-01] MEDS: ENOXAPARIN NA (PORCINE) 40 MG/0.4 ML DISP.SYRIN SQ SCH (10:42)
[2023-09-01] MEDS: DULoxetine HCL 30 MG CAPSULE.DR PO SCH (10:43)
[2023-09-01] MEDS: FAMOTIDINE 20 MG TABLET PO SCH (10:44)
[2023-09-01] MEDS: ISOSORBIDE MONONITRATE 30 MG TAB.SR.24H (FP) PO SCH (10:44)
[2023-09-01] MEDS: CARBIDOPA/LEVODOPA 25/250 TABLET (FP) PO SCH ×4 (10:44→21:02)
[2023-09-01] MEDS: ENTACAPONE 200 MG TABLET PO SCH ×4 (10:44→21:02)
[2023-09-01] MEDS: LOSARTAN POTASSIUM 25 MG TABLET PO SCH (10:44)
[2023-09-01] MEDS: INSULIN SLIDING SCALE (NOVOLOG) 1 VIAL SQ SCH ×3 (11:39→22:28)
[2023-09-01] MEDS ORDERED: CEFUROXIME AXETIL 250 MG TABLET PO SCH (12:30)
[2023-09-01] MEDS: CEFUROXIME AXETIL 250 MG TABLET PO SCH ×2 (13:38→21:01)
[2023-09-01] MEDS: QUEtiapine FUMARATE 25 MG TABLET PO SCH (20:50)
[2023-09-01] MEDS: ATORVASTATIN CA 10 MG TABLET (FP) PO SCH (21:01)
[2023-09-01] MEDS: MIRTAZAPINE 15 MG TABLET (FP) PO SCH (21:02)
[2023-09-02] MEDS ORDERED: ISOSORBIDE MONONITRATE 30 MG TAB.SR.24H (FP) PO ONE (06:05)
[2023-09-02] MEDS ORDERED: LOSARTAN POTASSIUM 25 MG TABLET PO ONE (06:05)
[2023-09-02] MEDS: INSULIN SLIDING SCALE (NOVOLOG) 1 VIAL SQ SCH ×4 (07:01→21:32)
[2023-09-02 07:58] LABS: BASO % 0.8 % (0-2.0); EOS % 1.9 % (0-4.5); HEMOGLOBIN 10.7 GM/dL (10.7-15.3); MCH 26.4 pg (25.7-33.7); MCHC 32.4 g/dl (32.0-36.0); MEAN CELL VOLUME 81.3 fl (80-96); MEAN PLT VOLUME 7.4 fl (7.5-11.1); MONO % 9.6 % (3.8-10.2); NEUT % 72.7 % (42.8-82.8); PLATELET COUNT 424 10^3/uL (134-434); RBC 4.06 M/mm3 (3.60-5.2); RDW 15.3 % (11.6-15.6)
[2023-09-02 08:19] LABS: POTASSIUM 3.7 mmol/L (3.5-5.1)
[2023-09-02 08:22] LABS: CALCIUM 9.1 mg/dL (8.5-10.1)
[2023-09-02 08:23] LABS: ALBUMIN 2.8 g/dl (3.4-5.0); BLOOD UREA NITROGEN 12.7 mg/dL (7-18); MAGNESIUM 2.1 mg/dL (1.8-2.4)
[2023-09-02 08:26] LABS: CREATININE 0.5 mg/dL (0.55-1.3)
[2023-09-02 08:27] LABS: BILIRUBIN,TOTAL 0.7 mg/dL (0.2-1); TOT PROT 6.4 g/dl (6.4-8.2)
[2023-09-02] MEDS: CEFUROXIME AXETIL 250 MG TABLET PO SCH (10:07)
[2023-09-02] MEDS: ISOSORBIDE MONONITRATE 30 MG TAB.SR.24H (FP) PO SCH (10:07)
[2023-09-02] MEDS: CARBIDOPA/LEVODOPA 25/250 TABLET (FP) PO SCH ×4 (10:07→21:33)
[2023-09-02] MEDS: QUEtiapine FUMARATE 25 MG TABLET PO SCH (10:08)
[2023-09-02] MEDS: ENOXAPARIN NA (PORCINE) 40 MG/0.4 ML DISP.SYRIN SQ SCH (10:08)
[2023-09-02] MEDS: DULoxetine HCL 30 MG CAPSULE.DR PO SCH (10:08)
[2023-09-02] MEDS: LOSARTAN POTASSIUM 25 MG TABLET PO SCH (10:08)
[2023-09-02] MEDS: ENTACAPONE 200 MG TABLET PO SCH ×4 (10:08→21:33)
[2023-09-02] MEDS ORDERED: SODIUM CHLORIDE 1,000 ML IV STA (12:25)
[2023-09-02] MEDS: DEXTROSE 5%-NORMAL SALINE 1,000 ML IV SCH (21:00)
[2023-09-02] MEDS: ATORVASTATIN CA 10 MG TABLET (FP) PO SCH (21:33)
[2023-09-02] MEDS: MIRTAZAPINE 15 MG TABLET (FP) PO SCH (21:33)
[2023-09-03] MEDS: INSULIN SLIDING SCALE (NOVOLOG) 1 VIAL SQ SCH ×4 (06:48→22:17)
[2023-09-03 09:03] LABS: BASO % 1.1 % (0-2.0); EOS % 5.4 % (0-4.5); HEMATOCRIT 34.1 % (32.4-45.2); HEMOGLOBIN 10.8 GM/dL (10.7-15.3); LYMPH % 28.6 % (8-40); MCH 25.8 pg (25.7-33.7); MCHC 31.7 g/dl (32.0-36.0); MEAN CELL VOLUME 81.4 fl (80-96); MEAN PLT VOLUME 7.6 fl (7.5-11.1); NEUT % 55.9 % (42.8-82.8); PLATELET COUNT 440 10^3/uL (134-434); RBC 4.19 M/mm3 (3.60-5.2); RDW 15.4 % (11.6-15.6); WHITE BLOOD COUNT 5.5 K/mm3 (4.0-10.0)
[2023-09-03 09:27] LABS: ALBUMIN 2.5 g/dl (3.4-5.0); BLOOD UREA NITROGEN 8.8 mg/dL (7-18); CALCIUM 8.5 mg/dL (8.5-10.1)
[2023-09-03 09:30] LABS: CREATININE 0.5 mg/dL (0.55-1.3)
[2023-09-03 09:31] LABS: BILIRUBIN,TOTAL 0.2 mg/dL (0.2-1); TOT PROT 5.8 g/dl (6.4-8.2)
[2023-09-03] MEDS: QUEtiapine FUMARATE 25 MG TABLET PO SCH (10:13)
[2023-09-03] MEDS: CARBIDOPA/LEVODOPA 25/250 TABLET (FP) PO SCH ×4 (10:13→22:05)
[2023-09-03] MEDS: DULoxetine HCL 30 MG CAPSULE.DR PO SCH (10:13)
[2023-09-03] MEDS: ENTACAPONE 200 MG TABLET PO SCH ×4 (10:13→22:05)
[2023-09-03] MEDS: VANCOMYCIN ORAL SOLUTION 125 MG/2.5 ML PO SCH ×2 (11:00→17:33)
[2023-09-03] MEDS ORDERED: INSULIN (NOVOLOG) ASPART 100 UNITS/ML 10ML VIAL ONE (16:36)
[2023-09-03] MEDS ORDERED: ACETAMINOPHEN 1000 MG/100 ML BAG IVPB ONE (17:28)
[2023-09-03] MEDS ORDERED: morphine CARPU-JECT 2 MG/1 ML DISP.SYRIN IVPUSH ONE (17:31)
[2023-09-03] MEDS: DEXTROSE 5%-NORMAL SALINE 1,000 ML IV SCH (22:05)
[2023-09-03] MEDS: ATORVASTATIN CA 10 MG TABLET (FP) PO SCH (22:05)
[2023-09-03] MEDS: MIRTAZAPINE 15 MG TABLET (FP) PO SCH (22:05)
[2023-09-04] MEDS: VANCOMYCIN ORAL SOLUTION 125 MG/2.5 ML PO SCH ×4 (06:52→23:22)
[2023-09-04] MEDS: INSULIN SLIDING SCALE (NOVOLOG) 1 VIAL SQ SCH ×4 (06:54→21:20)
[2023-09-04 09:26] LABS: BASO % 0.7 % (0-2.0); EOS % 4.8 % (0-4.5); HEMATOCRIT 36.4 % (32.4-45.2); HEMOGLOBIN 11.6 GM/dL (10.7-15.3); LYMPH % 24.1 % (8-40); MCH 25.7 pg (25.7-33.7); MEAN CELL VOLUME 80.6 fl (80-96); MEAN PLT VOLUME 7.7 fl (7.5-11.1); MONO % 8.4 % (3.8-10.2); PLATELET COUNT 461 10^3/uL (134-434); RBC 4.52 M/mm3 (3.60-5.2); RDW 15.8 % (11.6-15.6); WHITE BLOOD COUNT 6.7 K/mm3 (4.0-10.0)
[2023-09-04] MEDS: DULoxetine HCL 30 MG CAPSULE.DR PO SCH (09:31)
[2023-09-04] MEDS: QUEtiapine FUMARATE 25 MG TABLET PO SCH (09:31)
[2023-09-04] MEDS: ENTACAPONE 200 MG TABLET PO SCH ×4 (09:32→21:12)
[2023-09-04] MEDS: CARBIDOPA/LEVODOPA 25/250 TABLET (FP) PO SCH ×4 (09:32→21:13)
[2023-09-04 09:45] LABS: POTASSIUM 3.9 mmol/L (3.5-5.1)
[2023-09-04 10:01] LABS: BLOOD UREA NITROGEN 9.9 mg/dL (7-18); CALCIUM 8.6 mg/dL (8.5-10.1)
[2023-09-04 10:02] LABS: ALBUMIN 2.7 g/dl (3.4-5.0)
[2023-09-04 10:04] LABS: CREATININE 0.6 mg/dL (0.55-1.3); PHOSPHOROUS 3.1 mg/dL (2.5-4.9); TOT PROT 6.2 g/dl (6.4-8.2)
[2023-09-04 10:06] LABS: BILIRUBIN,TOTAL 0.2 mg/dL (0.2-1)
[2023-09-04] MEDS: oxyCODONE HCL 5 MG TABLET PO PRN ×2 (12:15→18:39)
[2023-09-04] MEDS: DEXTROSE 5%-NORMAL SALINE 1,000 ML IV SCH ×2 (18:40→21:20)
[2023-09-04] MEDS: ATORVASTATIN CA 10 MG TABLET (FP) PO SCH (21:12)
[2023-09-04] MEDS: MIRTAZAPINE 15 MG TABLET (FP) PO SCH (21:12)
[2023-09-05] MEDS: VANCOMYCIN ORAL SOLUTION 125 MG/2.5 ML PO SCH ×3 (06:01→17:34)
[2023-09-05] MEDS: INSULIN SLIDING SCALE (NOVOLOG) 1 VIAL SQ SCH ×4 (06:39→21:49)
[2023-09-05 08:00] LABS: BASO % 0.8 % (0-2.0); EOS % 3.1 % (0-4.5); HEMATOCRIT 37.4 % (32.4-45.2); HEMOGLOBIN 11.8 GM/dL (10.7-15.3); LYMPH % 21.7 % (8-40); MCH 25.8 pg (25.7-33.7); MCHC 31.6 g/dl (32.0-36.0); MEAN CELL VOLUME 81.6 fl (80-96); MEAN PLT VOLUME 7.7 fl (7.5-11.1); MONO % 6.2 % (3.8-10.2); NEUT % 68.2 % (42.8-82.8); PLATELET COUNT 519 10^3/uL (134-434); RBC 4.59 M/mm3 (3.60-5.2); RDW 15.6 % (11.6-15.6); WHITE BLOOD COUNT 8.4 K/mm3 (4.0-10.0)
[2023-09-05 08:20] LABS: POTASSIUM 3.9 mmol/L (3.5-5.1)
[2023-09-05 08:22] LABS: CALCIUM 8.8 mg/dL (8.5-10.1)
[2023-09-05 08:25] LABS: CREATININE 0.5 mg/dL (0.55-1.3)
[2023-09-05] MEDS: DEXTROSE 5%-NORMAL SALINE 1,000 ML IV SCH (09:59)
[2023-09-05] MEDS: CARBIDOPA/LEVODOPA 25/250 TABLET (FP) PO SCH ×4 (10:00→21:43)
[2023-09-05] MEDS: LOSARTAN POTASSIUM 25 MG TABLET PO SCH (10:01)
[2023-09-05] MEDS: ENTACAPONE 200 MG TABLET PO SCH ×4 (10:01→21:42)
[2023-09-05] MEDS: ISOSORBIDE MONONITRATE 30 MG TAB.SR.24H (FP) PO SCH (10:01)
[2023-09-05] MEDS: QUEtiapine FUMARATE 25 MG TABLET PO SCH (10:02)
[2023-09-05] MEDS: DULoxetine HCL 30 MG CAPSULE.DR PO SCH (10:03)
[2023-09-05] MEDS: oxyCODONE HCL 5 MG TABLET PO PRN (15:51)
[2023-09-05] MEDS: MIRTAZAPINE 15 MG TABLET (FP) PO SCH (21:42)
[2023-09-05] MEDS: ATORVASTATIN CA 10 MG TABLET (FP) PO SCH (21:42)
[2023-09-06] MEDS: VANCOMYCIN ORAL SOLUTION 125 MG/2.5 ML PO SCH ×4 (00:51→17:34)
[2023-09-06] MEDS: DEXTROSE 5%-NORMAL SALINE 1,000 ML IV SCH ×2 (05:35→10:00)
[2023-09-06] MEDS: INSULIN SLIDING SCALE (NOVOLOG) 1 VIAL SQ SCH ×4 (06:15→21:26)
[2023-09-06 09:24] LABS: BASO % 0.6 % (0-2.0); EOS % 3.2 % (0-4.5); HEMATOCRIT 33.5 % (32.4-45.2); HEMOGLOBIN 10.7 GM/dL (10.7-15.3); LYMPH % 25.9 % (8-40); MCH 25.6 pg (25.7-33.7); MCHC 31.9 g/dl (32.0-36.0); MEAN CELL VOLUME 80.1 fl (80-96); MEAN PLT VOLUME 6.9 fl (7.5-11.1); MONO % 7.8 % (3.8-10.2); NEUT % 62.5 % (42.8-82.8); PLATELET COUNT 528 10^3/uL (134-434); RBC 4.18 M/mm3 (3.60-5.2); RDW 15.8 % (11.6-15.6); WHITE BLOOD COUNT 7.7 K/mm3 (4.0-10.0)
[2023-09-06 09:41] LABS: POTASSIUM 4.1 mmol/L (3.5-5.1)
[2023-09-06 09:46] LABS: BLOOD UREA NITROGEN 15.1 mg/dL (7-18); CALCIUM 8.8 mg/dL (8.5-10.1)
[2023-09-06 09:48] LABS: ALBUMIN 2.7 g/dl (3.4-5.0)
[2023-09-06 09:50] LABS: CREATININE 0.6 mg/dL (0.55-1.3); PHOSPHOROUS 3.1 mg/dL (2.5-4.9)
[2023-09-06 09:52] LABS: BILIRUBIN,TOTAL 0.3 mg/dL (0.2-1); TOT PROT 5.9 g/dl (6.4-8.2)
[2023-09-06] MEDS: ISOSORBIDE MONONITRATE 30 MG TAB.SR.24H (FP) PO SCH (09:58)
[2023-09-06] MEDS: LOSARTAN POTASSIUM 25 MG TABLET PO SCH (09:58)
[2023-09-06] MEDS: DULoxetine HCL 30 MG CAPSULE.DR PO SCH (09:58)
[2023-09-06] MEDS: QUEtiapine FUMARATE 25 MG TABLET PO SCH (09:58)
[2023-09-06] MEDS: oxyCODONE HCL 5 MG TABLET PO PRN ×3 (09:58→21:18)
[2023-09-06] MEDS: MULTIVITAMINS (DAILY MVI) TABLET (FP) PO SCH (09:58)
[2023-09-06] MEDS: CARBIDOPA/LEVODOPA 25/250 TABLET (FP) PO SCH ×4 (10:00→21:20)
[2023-09-06] MEDS: ENTACAPONE 200 MG TABLET PO SCH ×4 (10:00→21:20)
[2023-09-06] MEDS: MIRTAZAPINE 15 MG TABLET (FP) PO SCH (21:17)
[2023-09-06] MEDS: ATORVASTATIN CA 10 MG TABLET (FP) PO SCH (21:18)
[2023-09-07] MEDS: VANCOMYCIN ORAL SOLUTION 125 MG/2.5 ML PO SCH ×4 (00:58→17:12)
[2023-09-07] MEDS: INSULIN SLIDING SCALE (NOVOLOG) 1 VIAL SQ SCH ×4 (06:29→21:49)
[2023-09-07 09:26] LABS: BASO % 1.2 % (0-2.0); EOS % 4.5 % (0-4.5); HEMATOCRIT 36.1 % (32.4-45.2); HEMOGLOBIN 11.5 GM/dL (10.7-15.3); LYMPH % 27.3 % (8-40); MCH 25.5 pg (25.7-33.7); MCHC 31.9 g/dl (32.0-36.0); MEAN CELL VOLUME 79.9 fl (80-96); MEAN PLT VOLUME 7.5 fl (7.5-11.1); MONO % 6.9 % (3.8-10.2); NEUT % 60.1 % (42.8-82.8); PLATELET COUNT 573 10^3/uL (134-434); RBC 4.51 M/mm3 (3.60-5.2); RDW 15.8 % (11.6-15.6); WHITE BLOOD COUNT 6.2 K/mm3 (4.0-10.0)
[2023-09-07 09:50] LABS: POTASSIUM 4.3 mmol/L (3.5-5.1)
[2023-09-07 09:53] LABS: ALBUMIN 2.8 g/dl (3.4-5.0); CALCIUM 8.9 mg/dL (8.5-10.1)
[2023-09-07 09:54] LABS: BLOOD UREA NITROGEN 13.5 mg/dL (7-18)
[2023-09-07 09:57] LABS: CREATININE 0.6 mg/dL (0.55-1.3); PHOSPHOROUS 3.6 mg/dL (2.5-4.9)
[2023-09-07 09:59] LABS: BILIRUBIN,TOTAL 0.3 mg/dL (0.2-1); TOT PROT 6.2 g/dl (6.4-8.2)
[2023-09-07] MEDS: LOSARTAN POTASSIUM 25 MG TABLET PO SCH (10:06)
[2023-09-07] MEDS: oxyCODONE HCL 5 MG TABLET PO PRN ×2 (10:06→21:11)
[2023-09-07] MEDS: QUEtiapine FUMARATE 25 MG TABLET PO SCH (10:06)
[2023-09-07] MEDS: MULTIVITAMINS (DAILY MVI) TABLET (FP) PO SCH (10:06)
[2023-09-07] MEDS: DULoxetine HCL 30 MG CAPSULE.DR PO SCH (10:07)
[2023-09-07] MEDS: ISOSORBIDE MONONITRATE 30 MG TAB.SR.24H (FP) PO SCH (10:07)
[2023-09-07] MEDS: ENTACAPONE 200 MG TABLET PO SCH ×4 (10:09→21:14)
[2023-09-07] MEDS: CARBIDOPA/LEVODOPA 25/250 TABLET (FP) PO SCH ×4 (10:09→21:13)
[2023-09-07] MEDS ORDERED: ACETAMINOPHEN 1000 MG/100 ML BAG IVPB ONE (13:13)
[2023-09-07] MEDS: DEXTROSE 5%-NORMAL SALINE 1,000 ML IV SCH ×2 (17:23→21:15)
[2023-09-07] MEDS: MELATONIN 5 MG TABLETS PO PRN (21:12)
[2023-09-07] MEDS: ATORVASTATIN CA 10 MG TABLET (FP) PO SCH (21:13)
[2023-09-07] MEDS: MIRTAZAPINE 15 MG TABLET (FP) PO SCH (21:13)
[2023-09-08] MEDS: VANCOMYCIN ORAL SOLUTION 125 MG/2.5 ML PO SCH ×5 (00:20→23:27)
[2023-09-08] MEDS: INSULIN SLIDING SCALE (NOVOLOG) 1 VIAL SQ SCH ×4 (06:06→21:47)
[2023-09-08] MEDS: DEXTROSE 5%-NORMAL SALINE 1,000 ML IV SCH (06:24)
[2023-09-08 09:06] LABS: BASO % 0.9 % (0-2.0); EOS % 4.3 % (0-4.5); HEMATOCRIT 30.9 % (32.4-45.2); HEMOGLOBIN 10.1 GM/dL (10.7-15.3); LYMPH % 27.2 % (8-40); MCH 26.6 pg (25.7-33.7); MCHC 32.8 g/dl (32.0-36.0); MEAN PLT VOLUME 6.9 fl (7.5-11.1); MONO % 7.3 % (3.8-10.2); NEUT % 60.3 % (42.8-82.8); PLATELET COUNT 474 10^3/uL (134-434); RBC 3.81 M/mm3 (3.60-5.2); RDW 15.8 % (11.6-15.6); WHITE BLOOD COUNT 6.7 K/mm3 (4.0-10.0)
[2023-09-08 09:24] LABS: POTASSIUM 4.4 mmol/L (3.5-5.1)
[2023-09-08 09:32] LABS: CREATININE 0.6 mg/dL (0.55-1.3)
[2023-09-08 09:34] LABS: ALBUMIN 2.5 g/dl (3.4-5.0); BILIRUBIN,TOTAL 0.4 mg/dL (0.2-1); BLOOD UREA NITROGEN 17.5 mg/dL (7-18); TOT PROT 5.5 g/dl (6.4-8.2)
[2023-09-08 09:35] LABS: CALCIUM 8.4 mg/dL (8.5-10.1)
[2023-09-08 09:36] LABS: MAGNESIUM 1.9 mg/dL (1.8-2.4)
[2023-09-08 09:37] LABS: PHOSPHOROUS 3.4 mg/dL (2.5-4.9)
[2023-09-08] MEDS: MULTIVITAMINS (DAILY MVI) TABLET (FP) PO SCH (09:49)
[2023-09-08] MEDS: ENTACAPONE 200 MG TABLET PO SCH ×4 (09:50→21:42)
[2023-09-08] MEDS: CARBIDOPA/LEVODOPA 25/250 TABLET (FP) PO SCH ×4 (09:50→21:42)
[2023-09-08] MEDS: DULoxetine HCL 30 MG CAPSULE.DR PO SCH (09:50)
[2023-09-08] MEDS: QUEtiapine FUMARATE 25 MG TABLET PO SCH (09:50)
[2023-09-08] MEDS: LOSARTAN POTASSIUM 25 MG TABLET PO SCH (09:50)
[2023-09-08] MEDS: ISOSORBIDE MONONITRATE 30 MG TAB.SR.24H (FP) PO SCH (09:50)
[2023-09-08] MEDS ORDERED: INSULIN SLIDING SCALE (NOVOLOG) 1 VIAL SQ ONE (12:15)
[2023-09-08] MEDS ORDERED: DEXTROSE 5%-NORMAL SALINE 1,000 ML IV SCH (16:34)
[2023-09-08] MEDS: oxyCODONE HCL 5 MG TABLET PO PRN ×2 (18:47→23:25)
[2023-09-08] MEDS: MIRTAZAPINE 15 MG TABLET (FP) PO SCH (21:41)
[2023-09-08] MEDS: ATORVASTATIN CA 10 MG TABLET (FP) PO SCH (21:41)
[2023-09-08] MEDS: MELATONIN 5 MG TABLETS PO PRN (23:25)
[2023-09-09] MEDS: INSULIN SLIDING SCALE (NOVOLOG) 1 VIAL SQ SCH ×4 (06:20→21:40)
[2023-09-09] MEDS: VANCOMYCIN ORAL SOLUTION 125 MG/2.5 ML PO SCH (06:22)
[2023-09-09 08:16] LABS: EOS % 4.2 % (0-4.5); HEMATOCRIT 33.6 % (32.4-45.2); HEMOGLOBIN 10.7 GM/dL (10.7-15.3); LYMPH % 29.2 % (8-40); MCH 25.7 pg (25.7-33.7); MCHC 31.9 g/dl (32.0-36.0); MEAN CELL VOLUME 80.6 fl (80-96); MEAN PLT VOLUME 6.9 fl (7.5-11.1); MONO % 9.1 % (3.8-10.2); NEUT % 56.5 % (42.8-82.8); PLATELET COUNT 475 10^3/uL (134-434); RBC 4.16 M/mm3 (3.60-5.2); RDW 16.5 % (11.6-15.6); WHITE BLOOD COUNT 6.7 K/mm3 (4.0-10.0)
[2023-09-09 08:53] LABS: POTASSIUM 4.1 mmol/L (3.5-5.1)
[2023-09-09 09:06] LABS: ALBUMIN 2.8 g/dl (3.4-5.0); BLOOD UREA NITROGEN 16.4 mg/dL (7-18); CALCIUM 8.9 mg/dL (8.5-10.1)
[2023-09-09 09:07] LABS: MAGNESIUM 2.1 mg/dL (1.8-2.4)
[2023-09-09 09:08] LABS: CREATININE 0.6 mg/dL (0.55-1.3); PHOSPHOROUS 3.8 mg/dL (2.5-4.9)
[2023-09-09 09:11] LABS: BILIRUBIN,TOTAL 0.5 mg/dL (0.2-1)
[2023-09-09] MEDS: MULTIVITAMINS (DAILY MVI) TABLET (FP) PO SCH (10:05)
[2023-09-09] MEDS: QUEtiapine FUMARATE 25 MG TABLET PO SCH (10:05)
[2023-09-09] MEDS: ENTACAPONE 200 MG TABLET PO SCH ×4 (10:07→21:39)
[2023-09-09] MEDS: DULoxetine HCL 30 MG CAPSULE.DR PO SCH (10:07)
[2023-09-09] MEDS: ISOSORBIDE MONONITRATE 30 MG TAB.SR.24H (FP) PO SCH (10:07)
[2023-09-09] MEDS: LOSARTAN POTASSIUM 25 MG TABLET PO SCH (10:07)
[2023-09-09] MEDS: CARBIDOPA/LEVODOPA 25/250 TABLET (FP) PO SCH ×4 (10:08→21:39)
[2023-09-09] MEDS ORDERED: oxyCODONE HCL 5 MG TABLET PO PRN (15:59)
[2023-09-09 18:02] VITALS: RESP 20
[2023-09-09] MEDS: MIRTAZAPINE 15 MG TABLET (FP) PO SCH (21:39)
[2023-09-09] MEDS: ATORVASTATIN CA 10 MG TABLET (FP) PO SCH (21:39)
[2023-09-09 23:05] VITALS: BP 140/78; PULSE 89; TEMP 97.5
== END 2023-09-10 01:15 | DRG 689 ==
LOC: JER 09:10 → JERBED 11:24 → INTOOBSV 11:24 → UNDOADMOB 11:24 → JERBED 11:52 → J7W 08-30 00:24 → JERBED 08-30 00:24 → J7W 08-30 00:24 → OBSVTOIN 09-01 15:48 → J6S 09-03 18:33
PROVIDERS: ADMIT Internal Medicine; ATTEND Internal Medicine
DX: N39.0 Urinary tract infection, site not specified (principal); G93.41 Metabolic encephalopathy; C18.9 Malignant neoplasm of colon, unspecified; A04.72 Enterocolitis due to Clostridium difficile, not specified as recurrent; I10 Essential (primary) hypertension; G20.A1 Parkinson's disease without dyskinesia, without mention of fluctuations; F02.80 Dementia in other diseases classified elsewhere, unspecified severity, without behavioral disturbance, psychotic disturbance, mood disturbance, and anxiety; E78.5 Hyperlipidemia, unspecified; E11.9 Type 2 diabetes mellitus without complications; K59.09 Other constipation; I95.89 Other hypotension; G47.00 Insomnia, unspecified; D75.839 Thrombocytosis, unspecified
CPT/HCPCS: 36415; 70450-TC; 71045-TC-FY; 74018-TC-FY; 80048; 80053; 81003; 82607; 82746; 82962; 83735; 84100; 84443; 85025; 85027; 87086; 87186; 87324; 87449; 87493; 93005; 93010; 97116-GP; 97161-GP; 99285-25; G0378

== ENCOUNTER 2023-09-15 11:02 | Inpatient (IN) | payer OTHER ==
[2023-09-15] MEDS ORDERED: CEFTRIAXONE 1 GM in DEXTROSE 5%-WATER - 100 ML IVPB ONE (11:09)
[2023-09-15] MEDS ORDERED: CEFTRIAXONE 1 GM/50 ML BAG ONE ×2 (11:52→16:28)
[2023-09-15 11:53] VITALS: BMI 25.2
[2023-09-15 13:53] LABS: BASO % 0.1 % (0-2.0); EOS % 0.6 % (0-4.5); HEMATOCRIT 37.1 % (32.4-45.2); HEMOGLOBIN 11.8 GM/dL (10.7-15.3); LYMPH % 11.3 % (8-40); MCH 25.4 pg (25.7-33.7); MCHC 31.8 g/dl (32.0-36.0); MEAN CELL VOLUME 79.9 fl (80-96); MEAN PLT VOLUME 7.9 fl (7.5-11.1); MONO % 8.6 % (3.8-10.2); NEUT % 79.4 % (42.8-82.8); PLATELET COUNT 391 10^3/uL (134-434); RBC 4.65 M/mm3 (3.60-5.2); RDW 17.1 % (11.6-15.6); WHITE BLOOD COUNT 5.6 K/mm3 (4.0-10.0)
[2023-09-15 13:55] LABS: INR 1.03 (0.83-1.09)
[2023-09-15 13:57] LABS: ACTIVATED PTT 26.9 SECONDS (25.2-36.5)
[2023-09-15 14:04] LABS: CHLORIDE 102 mmol/L (98-107); POTASSIUM 4.3 mmol/L (3.5-5.1); SODIUM 135 mmol/L (136-145)
[2023-09-15 14:06] LABS: CALCIUM 9.3 mg/dL (8.5-10.1)
[2023-09-15 14:07] LABS: ALBUMIN 2.9 g/dl (3.4-5.0); ANION GAP 6 mmol/L (4-13); CO2 27 mmol/L (21-32); MAGNESIUM 2.2 mg/dL (1.8-2.4)
[2023-09-15 14:10] LABS: CREATININE 0.8 mg/dL (0.55-1.3); SGOT/AST 18 U/L (15-37); SGPT/ALT 16 U/L (13-61)
[2023-09-15 14:11] LABS: TOT PROT 6.6 g/dl (6.4-8.2)
[2023-09-15 14:12] LABS: BILIRUBIN,TOTAL 0.2 mg/dL (0.2-1)
[2023-09-15 14:13] LABS: ALK PHOS 109 U/L (45-117)
[2023-09-15 14:18] LABS: BLOOD UREA NITROGEN 22.6 mg/dL (7-18); GLUCOSE,RANDOM 258 mg/dL (74-106)
[2023-09-15] MEDS ORDERED: ASPIRIN 81 MG CHEWABLE TABLETS PO ONE (14:52)
[2023-09-15] MEDS ORDERED: SODIUM CHLORIDE 0.9% 500 ML INFUS.BAG IV ONE (14:57)
[2023-09-15 15:25] LABS: URINE APPEARANCE CLEAR; URINE BILIRUBIN NEGATIVE (NEGATIVE); URINE COLOR YELLOW; URINE GLUCOSE (UA) TRACE (NEGATIVE); URINE KETONE NEGATIVE (NEGATIVE); URINE LEUK ESTERASE 1+ (NEGATIVE); URINE NITRITE POSITIVE (NEGATIVE); URINE PROTEIN NEGATIVE (NEGATIVE); URINE UROBILINOGEN 0.2 mg/dL (0.2-1.0)
[2023-09-15] MEDS ORDERED: ASPIRIN 81 MG CHEWABLE TABLETS ONE (15:30)
[2023-09-15 15:42] LABS: EPI CELLS 9 /uL (0-25.1); HYALINE CASTS 1 /uL (0-3.1); URINE BACTERIA 666 /uL (0-1359); URINE RBC 13 /uL (0-23.9); URINE WBC 251 /uL (0-25.8)
[2023-09-15] MEDS ORDERED: CEFTRIAXONE 1,000 MG in DEXTROSE 5%-WATER - 50 ML IVPB ONE (16:10)
[2023-09-15] MEDS ORDERED: ALBUTEROL SO4 HFA INHALER IH PRN (17:13)
[2023-09-15] MEDS ORDERED: oxyCODONE HCL 5 MG TABLET PO PRN (17:21)
[2023-09-15] MEDS ORDERED: ALBUTEROL SO4 0.083% IH SOL 2.5 MG/3 ML VIAL.NEB. NEB PRN (17:25)
[2023-09-15] MEDS: ENTACAPONE 200 MG TABLET PO SCH ×2 (18:40→22:50)
[2023-09-15] MEDS ORDERED: morphine SO4 SUSTAINED ACTING 15 MG TABLET.SA ONE (22:08)
[2023-09-15] MEDS ORDERED: QUEtiapine FUMARATE 25 MG TABLET ONE (22:08)
[2023-09-15] MEDS ORDERED: SENNOSIDES 8.6MG TABLET (FP) PO ONE (22:08)
[2023-09-15] MEDS ORDERED: MIRTAZAPINE 15 MG TABLET (FP) ONE (22:09)
[2023-09-15] MEDS ORDERED: ATORVASTATIN CA 10 MG TABLET (FP) ONE (22:09)
[2023-09-15] MEDS ORDERED: ENOXAPARIN NA (PORCINE) 60 MG/0.6 ML DISP.SYRIN SQ ONE (22:09)
[2023-09-15] MEDS: morphine SO4 SUSTAINED ACTING 15 MG TABLET.SA PO SCH (22:50)
[2023-09-15] MEDS: ATORVASTATIN CA 10 MG TABLET (FP) PO SCH (22:50)
[2023-09-15] MEDS: ENOXAPARIN NA (PORCINE) 60 MG/0.6 ML DISP.SYRIN SQ SCH (22:50)
[2023-09-15] MEDS: INSULIN SLIDING SCALE (NOVOLOG) 1 VIAL SQ SCH (22:51)
[2023-09-15] MEDS: SENNOSIDES 8.6MG TABLET (FP) PO SCH (22:52)
[2023-09-15] MEDS: QUEtiapine FUMARATE 25 MG TABLET PO SCH (22:52)
[2023-09-15] MEDS: MIRTAZAPINE 15 MG TABLET (FP) PO SCH (22:52)
[2023-09-16] MEDS ORDERED: morphine SO4 SUSTAINED ACTING 15 MG TABLET.SA ONE ×3 (05:57→14:45)
[2023-09-16] MEDS: morphine SO4 SUSTAINED ACTING 15 MG TABLET.SA PO SCH ×3 (06:07→23:28)
[2023-09-16] MEDS: INSULIN SLIDING SCALE (NOVOLOG) 1 VIAL SQ SCH ×4 (06:30→23:40)
[2023-09-16 06:44] LABS: BASO % 0.5 % (0-2.0); EOS % 3.1 % (0-4.5); HEMATOCRIT 35.1 % (32.4-45.2); LYMPH % 34.1 % (8-40); MCH 25.5 pg (25.7-33.7); MCHC 31.4 g/dl (32.0-36.0); MEAN CELL VOLUME 81.2 fl (80-96); MONO % 19.4 % (3.8-10.2); NEUT % 42.9 % (42.8-82.8); PLATELET COUNT 298 10^3/uL (134-434); RBC 4.33 M/mm3 (3.60-5.2); RDW 16.7 % (11.6-15.6); WHITE BLOOD COUNT 5.5 K/mm3 (4.0-10.0)
[2023-09-16 07:00] LABS: POTASSIUM 3.9 mmol/L (3.5-5.1)
[2023-09-16 07:10] LABS: ALBUMIN 2.6 g/dl (3.4-5.0); BLOOD UREA NITROGEN 14.4 mg/dL (7-18); MAGNESIUM 2.7 mg/dL (1.8-2.4)
[2023-09-16 07:13] LABS: CREATININE 0.5 mg/dL (0.55-1.3); PHOSPHOROUS 3.6 mg/dL (2.5-4.9)
[2023-09-16 07:14] LABS: BILIRUBIN,TOTAL 0.3 mg/dL (0.2-1); TOT PROT 5.9 g/dl (6.4-8.2)
[2023-09-16] MEDS ORDERED: CEFTRIAXONE 1 GM/50 ML BAG ONE (09:31)
[2023-09-16] MEDS ORDERED: ENOXAPARIN NA (PORCINE) 40 MG/0.4 ML DISP.SYRIN SQ SCH (10:00)
[2023-09-16] MEDS: DULoxetine HCL 30 MG CAPSULE.DR PO SCH (10:15)
[2023-09-16] MEDS: ENOXAPARIN NA (PORCINE) 60 MG/0.6 ML DISP.SYRIN SQ SCH ×2 (10:15→23:29)
[2023-09-16] MEDS: LOSARTAN POTASSIUM 25 MG TABLET PO SCH (10:15)
[2023-09-16] MEDS: ASPIRIN 81 MG CHEWABLE TABLETS PO SCH (10:15)
[2023-09-16] MEDS: CEFTRIAXONE 1 GM in DEXTROSE 5%-WATER - 50 ML IVPB SCH (10:15)
[2023-09-16] MEDS: ENTACAPONE 200 MG TABLET PO SCH ×4 (10:15→23:29)
[2023-09-16] MEDS: NIFEdipine E.R. 30 MG TABLET PO SCH (10:15)
[2023-09-16] MEDS: SENNOSIDES 8.6MG TABLET (FP) PO SCH ×2 (10:15→23:28)
[2023-09-16] MEDS: FAMOTIDINE 20 MG TABLET PO SCH (10:15)
[2023-09-16] MEDS ORDERED: NALOXONE HCL 0.4 MG/ML VIAL IVPUSH PRN (15:57)
[2023-09-16] MEDS: ATORVASTATIN CA 10 MG TABLET (FP) PO SCH (23:28)
[2023-09-16] MEDS: QUEtiapine FUMARATE 25 MG TABLET PO SCH (23:28)
[2023-09-16] MEDS: MIRTAZAPINE 15 MG TABLET (FP) PO SCH (23:28)
[2023-09-17] MEDS: morphine SO4 SUSTAINED ACTING 15 MG TABLET.SA PO SCH (06:26)
[2023-09-17] MEDS: INSULIN SLIDING SCALE (NOVOLOG) 1 VIAL SQ SCH ×4 (06:31→22:22)
[2023-09-17] MEDS: CEFTRIAXONE 1 GM in DEXTROSE 5%-WATER - 50 ML IVPB SCH (10:47)
[2023-09-17] MEDS: ASPIRIN 81 MG CHEWABLE TABLETS PO SCH ×2 (10:48→11:16)
[2023-09-17] MEDS: NIFEdipine E.R. 30 MG TABLET PO SCH ×2 (10:48→11:17)
[2023-09-17] MEDS: LOSARTAN POTASSIUM 25 MG TABLET PO SCH ×2 (10:48→11:16)
[2023-09-17] MEDS: DULoxetine HCL 30 MG CAPSULE.DR PO SCH ×2 (10:48→11:16)
[2023-09-17] MEDS: SENNOSIDES 8.6MG TABLET (FP) PO SCH ×3 (10:48→21:56)
[2023-09-17] MEDS: FAMOTIDINE 20 MG TABLET PO SCH ×2 (10:48→11:16)
[2023-09-17] MEDS: ENOXAPARIN NA (PORCINE) 60 MG/0.6 ML DISP.SYRIN SQ SCH ×2 (10:49→21:57)
[2023-09-17] MEDS: ENTACAPONE 200 MG TABLET PO SCH ×4 (10:54→22:09)
[2023-09-17] MEDS ORDERED: morphine SULFATE 10 MG/5 ML UNIT-DOSE CUP PO SCH ×2 (15:45→15:51)
[2023-09-17] MEDS: morphine SULFATE 10 MG/5 ML UNIT-DOSE CUP PO SCH ×2 (17:11→23:25)
[2023-09-17] MEDS: CARBIDOPA/LEVODOPA 25/250 TABLET (FP) PO SCH ×2 (18:57→22:12)
[2023-09-17] MEDS: MIRTAZAPINE 15 MG TABLET (FP) PO SCH (21:56)
[2023-09-17] MEDS: QUEtiapine FUMARATE 25 MG TABLET PO SCH (21:56)
[2023-09-17] MEDS: ATORVASTATIN CA 10 MG TABLET (FP) PO SCH (21:57)
[2023-09-18] MEDS: morphine SULFATE 10 MG/5 ML UNIT-DOSE CUP PO SCH ×3 (05:15→17:36)
[2023-09-18] MEDS: INSULIN SLIDING SCALE (NOVOLOG) 1 VIAL SQ SCH ×4 (06:39→21:11)
[2023-09-18] MEDS: LOSARTAN POTASSIUM 25 MG TABLET PO SCH (10:14)
[2023-09-18] MEDS: FAMOTIDINE 20 MG TABLET PO SCH (10:14)
[2023-09-18] MEDS: DULoxetine HCL 30 MG CAPSULE.DR PO SCH (10:14)
[2023-09-18] MEDS: NIFEdipine E.R. 30 MG TABLET PO SCH (10:14)
[2023-09-18] MEDS: SENNOSIDES 8.6MG TABLET (FP) PO SCH ×2 (10:14→21:10)
[2023-09-18] MEDS: ENOXAPARIN NA (PORCINE) 60 MG/0.6 ML DISP.SYRIN SQ SCH ×2 (10:14→21:10)
[2023-09-18] MEDS: ASPIRIN 81 MG CHEWABLE TABLETS PO SCH (10:14)
[2023-09-18] MEDS: CARBIDOPA/LEVODOPA 25/250 TABLET (FP) PO SCH ×4 (10:15→21:12)
[2023-09-18] MEDS: ENTACAPONE 200 MG TABLET PO SCH ×4 (10:15→21:12)
[2023-09-18] MEDS: QUEtiapine FUMARATE 25 MG TABLET PO SCH (21:10)
[2023-09-18] MEDS: ATORVASTATIN CA 10 MG TABLET (FP) PO SCH (21:10)
[2023-09-18] MEDS: MIRTAZAPINE 15 MG TABLET (FP) PO SCH (21:10)
[2023-09-19] MEDS: morphine SULFATE 10 MG/5 ML UNIT-DOSE CUP PO SCH ×5 (02:52→23:15)
[2023-09-19] MEDS: INSULIN SLIDING SCALE (NOVOLOG) 1 VIAL SQ SCH ×4 (06:00→21:37)
[2023-09-19 07:40] LABS: BASO % 0.5 % (0-2.0); EOS % 1.6 % (0-4.5); HEMATOCRIT 28.4 % (32.4-45.2); HEMOGLOBIN 9.1 GM/dL (10.7-15.3); LYMPH % 27.7 % (8-40); MCH 25.7 pg (25.7-33.7); MCHC 32.1 g/dl (32.0-36.0); MEAN PLT VOLUME 7.6 fl (7.5-11.1); MONO % 11.7 % (3.8-10.2); NEUT % 58.5 % (42.8-82.8); PLATELET COUNT 347 10^3/uL (134-434); RBC 3.55 M/mm3 (3.60-5.2); RDW 15.8 % (11.6-15.6); WHITE BLOOD COUNT 6.2 K/mm3 (4.0-10.0)
[2023-09-19 07:56] LABS: BLOOD UREA NITROGEN 21.4 mg/dL (7-18); CALCIUM 8.7 mg/dL (8.5-10.1)
[2023-09-19 08:01] LABS: CREATININE 0.5 mg/dL (0.55-1.3)
[2023-09-19] MEDS: ENOXAPARIN NA (PORCINE) 60 MG/0.6 ML DISP.SYRIN SQ SCH ×2 (11:56→21:37)
[2023-09-19] MEDS: ENTACAPONE 200 MG TABLET PO SCH ×4 (11:56→21:36)
[2023-09-19] MEDS: CARBIDOPA/LEVODOPA 25/250 TABLET (FP) PO SCH ×4 (11:57→21:37)
[2023-09-19] MEDS: LOSARTAN POTASSIUM 25 MG TABLET PO SCH (11:58)
[2023-09-19] MEDS: ASPIRIN 81 MG CHEWABLE TABLETS PO SCH (11:58)
[2023-09-19] MEDS: DULoxetine HCL 30 MG CAPSULE.DR PO SCH (11:58)
[2023-09-19] MEDS: NIFEdipine E.R. 30 MG TABLET PO SCH (11:59)
[2023-09-19] MEDS: FAMOTIDINE 20 MG TABLET PO SCH (11:59)
[2023-09-19] MEDS: SENNOSIDES 8.6MG TABLET (FP) PO SCH ×2 (12:00→21:37)
[2023-09-19] MEDS: LACTATED RINGERS SOLUTION 1,000 ML/1,000 ML INFUS.BAG IV SCH (12:34)
[2023-09-19] MEDS: predniSONE 20 MG TABLET (UD) PO SCH (12:34)
[2023-09-19] MEDS: ATORVASTATIN CA 10 MG TABLET (FP) PO SCH (21:36)
[2023-09-19] MEDS: MIRTAZAPINE 15 MG TABLET (FP) PO SCH (21:37)
[2023-09-19] MEDS: QUEtiapine FUMARATE 25 MG TABLET PO SCH (21:37)
[2023-09-20] MEDS: morphine SULFATE 10 MG/5 ML UNIT-DOSE CUP PO SCH ×3 (06:03→17:57)
[2023-09-20] MEDS: INSULIN SLIDING SCALE (NOVOLOG) 1 VIAL SQ SCH ×4 (06:12→21:32)
[2023-09-20 08:53] LABS: HEMATOCRIT 31.3 % (32.4-45.2); MCH 25.4 pg (25.7-33.7); MCHC 31.9 g/dl (32.0-36.0); MEAN CELL VOLUME 79.6 fl (80-96); MEAN PLT VOLUME 8.4 fl (7.5-11.1); PLATELET COUNT 346 10^3/uL (134-434); RBC 3.94 M/mm3 (3.60-5.2); RDW 16.3 % (11.6-15.6); WHITE BLOOD COUNT 5.8 K/mm3 (4.0-10.0)
[2023-09-20 09:32] LABS: CALCIUM 9.4 mg/dL (8.5-10.1)
[2023-09-20 09:33] LABS: BLOOD UREA NITROGEN 17.6 mg/dL (7-18)
[2023-09-20 09:36] LABS: CREATININE 0.5 mg/dL (0.55-1.3)
[2023-09-20 09:56] LABS: POTASSIUM 4.3 mmol/L (3.5-5.1)
[2023-09-20] MEDS: ENOXAPARIN NA (PORCINE) 60 MG/0.6 ML DISP.SYRIN SQ SCH ×2 (10:06→21:33)
[2023-09-20] MEDS: DULoxetine HCL 30 MG CAPSULE.DR PO SCH (10:06)
[2023-09-20] MEDS: ENTACAPONE 200 MG TABLET PO SCH ×4 (10:07→21:32)
[2023-09-20] MEDS: ASPIRIN 81 MG CHEWABLE TABLETS PO SCH (10:07)
[2023-09-20] MEDS: FAMOTIDINE 20 MG TABLET PO SCH (10:08)
[2023-09-20] MEDS: LOSARTAN POTASSIUM 25 MG TABLET PO SCH (10:08)
[2023-09-20] MEDS: NIFEdipine E.R. 30 MG TABLET PO SCH (10:08)
[2023-09-20] MEDS: predniSONE 20 MG TABLET (UD) PO SCH (10:08)
[2023-09-20] MEDS: CARBIDOPA/LEVODOPA 25/250 TABLET (FP) PO SCH ×4 (10:09→21:33)
[2023-09-20] MEDS: SENNOSIDES 8.6MG TABLET (FP) PO SCH ×2 (10:09→21:32)
[2023-09-20] MEDS: LACTATED RINGERS SOLUTION 1,000 ML/1,000 ML INFUS.BAG IV SCH (12:46)
[2023-09-20] MEDS: ATORVASTATIN CA 10 MG TABLET (FP) PO SCH (21:32)
[2023-09-20] MEDS: QUEtiapine FUMARATE 25 MG TABLET PO SCH (21:32)
[2023-09-20] MEDS: MIRTAZAPINE 15 MG TABLET (FP) PO SCH (21:32)
[2023-09-21] MEDS: morphine SULFATE 10 MG/5 ML UNIT-DOSE CUP PO SCH ×4 (00:30→17:10)
[2023-09-21] MEDS: INSULIN SLIDING SCALE (NOVOLOG) 1 VIAL SQ SCH ×4 (06:15→21:45)
[2023-09-21 07:50] LABS: BASO % 0.9 % (0-2.0); EOS % 1.1 % (0-4.5); HEMATOCRIT 31.4 % (32.4-45.2); HEMOGLOBIN 9.9 GM/dL (10.7-15.3); LYMPH % 31.9 % (8-40); MCH 25.2 pg (25.7-33.7); MCHC 31.5 g/dl (32.0-36.0); MEAN CELL VOLUME 79.9 fl (80-96); MEAN PLT VOLUME 8.1 fl (7.5-11.1); MONO % 10.3 % (3.8-10.2); NEUT % 55.8 % (42.8-82.8); PLATELET COUNT 376 10^3/uL (134-434); RBC 3.93 M/mm3 (3.60-5.2); RDW 16.2 % (11.6-15.6); WHITE BLOOD COUNT 6.6 K/mm3 (4.0-10.0)
[2023-09-21 08:05] LABS: POTASSIUM 4.1 mmol/L (3.5-5.1)
[2023-09-21 08:07] LABS: CALCIUM 9.5 mg/dL (8.5-10.1)
[2023-09-21 08:11] LABS: CREATININE 0.6 mg/dL (0.55-1.3)
[2023-09-21] MEDS: NIFEdipine E.R. 30 MG TABLET PO SCH (09:59)
[2023-09-21] MEDS: ASPIRIN 81 MG CHEWABLE TABLETS PO SCH (09:59)
[2023-09-21] MEDS: ENOXAPARIN NA (PORCINE) 60 MG/0.6 ML DISP.SYRIN SQ SCH ×2 (09:59→21:44)
[2023-09-21] MEDS: DULoxetine HCL 30 MG CAPSULE.DR PO SCH (09:59)
[2023-09-21] MEDS: FAMOTIDINE 20 MG TABLET PO SCH (10:00)
[2023-09-21] MEDS: predniSONE 20 MG TABLET (UD) PO SCH (10:00)
[2023-09-21] MEDS: LOSARTAN POTASSIUM 25 MG TABLET PO SCH (10:00)
[2023-09-21] MEDS: SENNOSIDES 8.6MG TABLET (FP) PO SCH ×2 (10:00→21:44)
[2023-09-21] MEDS: CARBIDOPA/LEVODOPA 25/250 TABLET (FP) PO SCH ×4 (10:01→21:44)
[2023-09-21] MEDS: ENTACAPONE 200 MG TABLET PO SCH ×4 (10:01→21:44)
[2023-09-21] MEDS: LACTATED RINGERS SOLUTION 1,000 ML/1,000 ML INFUS.BAG IV SCH (15:09)
[2023-09-21] MEDS: QUEtiapine FUMARATE 25 MG TABLET PO SCH (21:44)
[2023-09-21] MEDS: MIRTAZAPINE 15 MG TABLET (FP) PO SCH (21:44)
[2023-09-21] MEDS: ATORVASTATIN CA 10 MG TABLET (FP) PO SCH (21:44)
[2023-09-22] MEDS: morphine SULFATE 10 MG/5 ML UNIT-DOSE CUP PO SCH ×5 (00:57→23:46)
[2023-09-22] MEDS: LACTATED RINGERS SOLUTION 1,000 ML/1,000 ML INFUS.BAG IV SCH (05:26)
[2023-09-22] MEDS: INSULIN SLIDING SCALE (NOVOLOG) 1 VIAL SQ SCH ×4 (07:16→22:35)
[2023-09-22 07:35] LABS: BASO % 0.9 % (0-2.0); EOS % 0.6 % (0-4.5); HEMATOCRIT 34.4 % (32.4-45.2); HEMOGLOBIN 10.9 GM/dL (10.7-15.3); LYMPH % 30.6 % (8-40); MCH 25.4 pg (25.7-33.7); MCHC 31.7 g/dl (32.0-36.0); MEAN CELL VOLUME 80.2 fl (80-96); MEAN PLT VOLUME 7.8 fl (7.5-11.1); MONO % 11.6 % (3.8-10.2); NEUT % 56.3 % (42.8-82.8); PLATELET COUNT 359 10^3/uL (134-434); RBC 4.28 M/mm3 (3.60-5.2); RDW 15.9 % (11.6-15.6); WHITE BLOOD COUNT 7.2 K/mm3 (4.0-10.0)
[2023-09-22 07:44] LABS: ALBUMIN 2.8 g/dl (3.4-5.0); BLOOD UREA NITROGEN 12.8 mg/dL (7-18); CALCIUM 9.8 mg/dL (8.5-10.1); MAGNESIUM 1.9 mg/dL (1.8-2.4)
[2023-09-22 07:47] LABS: CREATININE 0.5 mg/dL (0.55-1.3)
[2023-09-22 07:49] LABS: BILIRUBIN,TOTAL 0.2 mg/dL (0.2-1); TOT PROT 6.8 g/dl (6.4-8.2)
[2023-09-22] MEDS: predniSONE 20 MG TABLET (UD) PO SCH (11:20)
[2023-09-22] MEDS: ENOXAPARIN NA (PORCINE) 60 MG/0.6 ML DISP.SYRIN SQ SCH ×2 (11:20→22:33)
[2023-09-22] MEDS: NIFEdipine E.R. 30 MG TABLET PO SCH (11:20)
[2023-09-22] MEDS: DULoxetine HCL 30 MG CAPSULE.DR PO SCH (11:20)
[2023-09-22] MEDS: FAMOTIDINE 20 MG TABLET PO SCH (11:20)
[2023-09-22] MEDS: LOSARTAN POTASSIUM 25 MG TABLET PO SCH (11:20)
[2023-09-22] MEDS: SENNOSIDES 8.6MG TABLET (FP) PO SCH ×2 (11:21→22:35)
[2023-09-22] MEDS: ASPIRIN 81 MG CHEWABLE TABLETS PO SCH (11:25)
[2023-09-22] MEDS: ENTACAPONE 200 MG TABLET PO SCH ×4 (11:26→22:35)
[2023-09-22] MEDS: CARBIDOPA/LEVODOPA 25/250 TABLET (FP) PO SCH ×4 (11:26→22:34)
[2023-09-22] MEDS ORDERED: oxyCODONE HCL 5 MG TABLET PO PRN (16:52)
[2023-09-22] MEDS: MIRTAZAPINE 15 MG TABLET (FP) PO SCH (22:34)
[2023-09-22] MEDS: ATORVASTATIN CA 10 MG TABLET (FP) PO SCH (22:34)
[2023-09-22] MEDS: QUEtiapine FUMARATE 25 MG TABLET PO SCH (22:34)
[2023-09-23] MEDS: morphine SULFATE 10 MG/5 ML UNIT-DOSE CUP PO SCH ×3 (05:56→17:13)
[2023-09-23] MEDS: INSULIN SLIDING SCALE (NOVOLOG) 1 VIAL SQ SCH ×3 (06:07→17:11)
[2023-09-23 07:52] LABS: BASO % 0.5 % (0-2.0); EOS % 0.4 % (0-4.5); HEMATOCRIT 33.6 % (32.4-45.2); HEMOGLOBIN 10.7 GM/dL (10.7-15.3); LYMPH % 22.2 % (8-40); MCH 25.4 pg (25.7-33.7); MCHC 31.8 g/dl (32.0-36.0); MEAN CELL VOLUME 79.9 fl (80-96); MEAN PLT VOLUME 7.9 fl (7.5-11.1); MONO % 8.7 % (3.8-10.2); NEUT % 68.2 % (42.8-82.8); PLATELET COUNT 430 10^3/uL (134-434); RDW 15.9 % (11.6-15.6); WHITE BLOOD COUNT 10.6 K/mm3 (4.0-10.0)
[2023-09-23 09:10] LABS: CALCIUM 9.5 mg/dL (8.5-10.1)
[2023-09-23 09:13] LABS: ALBUMIN 2.9 g/dl (3.4-5.0); BLOOD UREA NITROGEN 17.4 mg/dL (7-18)
[2023-09-23 09:14] LABS: MAGNESIUM 2.1 mg/dL (1.8-2.4)
[2023-09-23 09:15] LABS: CREATININE 0.5 mg/dL (0.55-1.3)
[2023-09-23 09:17] LABS: BILIRUBIN,TOTAL 0.2 mg/dL (0.2-1)
[2023-09-23 09:18] LABS: TOT PROT 6.4 g/dl (6.4-8.2)
[2023-09-23] MEDS: SENNOSIDES 8.6MG TABLET (FP) PO SCH (09:35)
[2023-09-23] MEDS: predniSONE 20 MG TABLET (UD) PO SCH (09:35)
[2023-09-23] MEDS: NIFEdipine E.R. 30 MG TABLET PO SCH (09:35)
[2023-09-23] MEDS: FAMOTIDINE 20 MG TABLET PO SCH (09:35)
[2023-09-23] MEDS: LOSARTAN POTASSIUM 25 MG TABLET PO SCH (09:35)
[2023-09-23] MEDS: DULoxetine HCL 30 MG CAPSULE.DR PO SCH (09:35)
[2023-09-23] MEDS: ASPIRIN 81 MG CHEWABLE TABLETS PO SCH (09:35)
[2023-09-23] MEDS: ENTACAPONE 200 MG TABLET PO SCH ×3 (09:36→17:12)
[2023-09-23] MEDS: CARBIDOPA/LEVODOPA 25/250 TABLET (FP) PO SCH ×3 (09:36→17:12)
[2023-09-23] MEDS: ENOXAPARIN NA (PORCINE) 60 MG/0.6 ML DISP.SYRIN SQ SCH (11:57)
[2023-09-23 14:29] VITALS: BP 149/78; PULSE 90; RESP 18; TEMP 98.4
== END 2023-09-23 17:41 | disposition home health service (06) | DRG 175 ==
LOC: JER 11:02 → JERBED 16:08 → J4S 09-16 19:53
PROVIDERS: ADMIT Internal Medicine; ATTEND Internal Medicine
DX: I26.99 Other pulmonary embolism without acute cor pulmonale (principal); G93.41 Metabolic encephalopathy; J96.01 Acute respiratory failure with hypoxia; J12.1 Respiratory syncytial virus pneumonia; I24.89 Other forms of acute ischemic heart disease; N39.0 Urinary tract infection, site not specified; G20.A1 Parkinson's disease without dyskinesia, without mention of fluctuations; I10 Essential (primary) hypertension; E11.9 Type 2 diabetes mellitus without complications; F03.90 Unspecified dementia, unspecified severity, without behavioral disturbance, psychotic disturbance, mood disturbance, and anxiety; E78.5 Hyperlipidemia, unspecified; B96.20 Unspecified Escherichia coli [E. coli] as the cause of diseases classified elsewhere; Z85.038 Personal history of other malignant neoplasm of large intestine; Z86.73 Personal history of transient ischemic attack (TIA), and cerebral infarction without residual deficits
CPT/HCPCS: 0241U-QW; 36415; 71045-TC-FY; 71260-TC; 74177-TC; 80048; 80053; 81003; 82550; 82962; 83735; 83880; 84100; 84484; 85025; 85027; 85610; 85730; 87040; 87086; 87186; 93005; 93010; 94761; 97116-GP; 97161-GP; 99285-25; Q9967

== ENCOUNTER 2023-10-12 13:37 | Inpatient (IN) | payer OTHER ==
[2023-10-12] MEDS ORDERED: SODIUM CHLORIDE IV ONE (14:26)
[2023-10-12] MEDS ORDERED: CLINDAMYCIN 600MG PREMIX IVPB 600 MG/50 ML BAG IVPB ONE ×2 (14:56→15:07)
[2023-10-12 15:19] LABS: VENOUS BASE EXCESS -0.2 mmol/L (-2-2); VENOUS O2 SATURATION 17.1 % (70-80); VENOUS PCO2 65.9 mmHg (38-52); VENOUS PH 7.254 (7.310-7.410)
[2023-10-12 15:24] LABS: BASO % 0.5 % (0-2.0); EOS % 0.9 % (0-4.5); HEMATOCRIT 27.4 % (32.4-45.2); HEMOGLOBIN 8.6 GM/dL (10.7-15.3); LYMPH % 9.6 % (8-40); MCH 24.9 pg (25.7-33.7); MCHC 31.2 g/dl (32.0-36.0); MEAN CELL VOLUME 79.7 fl (80-96); MEAN PLT VOLUME 7.1 fl (7.5-11.1); MONO % 8.9 % (3.8-10.2); NEUT % 80.1 % (42.8-82.8); PLATELET COUNT 572 10^3/uL (134-434); RBC 3.43 M/mm3 (3.60-5.2); RDW 17.4 % (11.6-15.6); WHITE BLOOD COUNT 9.1 K/mm3 (4.0-10.0)
[2023-10-12 15:28] LABS: INR 1.16 (0.83-1.09); PROTHROMBIN TIME (PATIENT) 13.4 SEC (9.7-13.0)
[2023-10-12 15:29] LABS: EPI CELLS 25 /uL (0-25.1); HYALINE CASTS 10 /uL (0-3.1); PH,URINE 5.5 (5.0-8.0); URINE APPEARANCE TURBID; URINE BACTERIA >9,000 /uL (0-1359); URINE BILIRUBIN NEGATIVE (NEGATIVE); URINE COLOR DK YELLOW; URINE GLUCOSE (UA) NEGATIVE (NEGATIVE); URINE KETONE TRACE (NEGATIVE); URINE LEUK ESTERASE 3+ (NEGATIVE); URINE NITRITE POSITIVE (NEGATIVE); URINE PROTEIN 1+ (NEGATIVE); URINE RBC 45 /uL (0-23.9); URINE UROBILINOGEN 0.2 mg/dL (0.2-1.0); URINE WBC 6523 /uL (0-25.8)
[2023-10-12 15:31] LABS: ACTIVATED PTT 25.6 SECONDS (25.2-36.5)
[2023-10-12 15:41] LABS: POTASSIUM 5.1 mmol/L (3.5-5.1)
[2023-10-12 15:44] LABS: YEAST NEGATIVE (NEGATIVE)
[2023-10-12 15:46] LABS: CALCIUM 8.7 mg/dL (8.5-10.1)
[2023-10-12 15:48] LABS: CREATININE 0.5 mg/dL (0.55-1.3)
[2023-10-12 15:51] LABS: BILIRUBIN,TOTAL 0.2 mg/dL (0.2-1); TOT PROT 5.6 g/dl (6.4-8.2)
[2023-10-12 15:53] LABS: LACTIC ACID 3.1 mmol/L (0.4-2.0)
[2023-10-12] MEDS ORDERED: CEFTRIAXONE 1 GM/50 ML BAG ONE (16:49)
[2023-10-12] MEDS ORDERED: VANCOMYCIN/WATER FOR INJ (PEG) 1,000 MG/200 ML BAG IVPB SCH (23:30)
[2023-10-12] MEDS ORDERED: VANCOMYCIN 1,000 MG in DEXTROSE 5%-WATER - 250 ML IVPB SCH (23:30)
[2023-10-13] MEDS ORDERED: BISACODYL 5 MG TABLET.DR (FP) PO PRN (02:21)
[2023-10-13] MEDS ORDERED: GLIMEPIRIDE 1 MG TABLET PO PRN (02:21)
[2023-10-13] MEDS ORDERED: oxyCODONE HCL 5 MG TABLET PO PRN (02:23)
[2023-10-13] MEDS: sitaGLIPtin PHOSPHATE 50 MG TABLET PO SCH (06:31)
[2023-10-13] MEDS: CARBIDOPA/LEVODOPA 25/250 TABLET (FP) PO SCH ×3 (06:31→22:14)
[2023-10-13] MEDS: ENTACAPONE 200 MG TABLET PO SCH ×3 (06:32→22:16)
[2023-10-13] MEDS: NEBIVOLOL 5 MG TABLET (FP) PO SCH (07:14)
[2023-10-13 09:51] LABS: BASO % 0.5 % (0-2.0); HEMATOCRIT 26.4 % (32.4-45.2); HEMOGLOBIN 8.3 GM/dL (10.7-15.3); LYMPH % 11.7 % (8-40); MCH 24.6 pg (25.7-33.7); MCHC 31.6 g/dl (32.0-36.0); MEAN CELL VOLUME 78.1 fl (80-96); MEAN PLT VOLUME 6.4 fl (7.5-11.1); MONO % 8.4 % (3.8-10.2); NEUT % 78.4 % (42.8-82.8); PLATELET COUNT 638 10^3/uL (134-434); RBC 3.38 M/mm3 (3.60-5.2); RDW 17.2 % (11.6-15.6); WHITE BLOOD COUNT 6.9 K/mm3 (4.0-10.0)
[2023-10-13] MEDS ORDERED: VANCOMYCIN 1,000 MG in DEXTROSE 5%-WATER - 250 ML IVPB SCH (10:00)
[2023-10-13] MEDS ORDERED: ENOXAPARIN NA (PORCINE) 60 MG/0.6 ML DISP.SYRIN SQ SCH (10:00)
[2023-10-13] MEDS ORDERED: PIPERACILLIN/TAZOB 3.375 GM 3.375 GM in DEXTROSE 5%-WATER - 50 ML IVPB SCH (10:00)
[2023-10-13 10:10] LABS: POTASSIUM 4.2 mmol/L (3.5-5.1)
[2023-10-13 10:18] LABS: CALCIUM 8.2 mg/dL (8.5-10.1)
[2023-10-13 10:19] LABS: BLOOD UREA NITROGEN 6.9 mg/dL (7-18); MAGNESIUM 1.9 mg/dL (1.8-2.4)
[2023-10-13 10:21] LABS: CREATININE 0.3 mg/dL (0.55-1.3); PHOSPHOROUS 3.6 mg/dL (2.5-4.9)
[2023-10-13 10:22] LABS: BILIRUBIN,TOTAL 0.3 mg/dL (0.2-1); TOT PROT 5.4 g/dl (6.4-8.2)
[2023-10-13] MEDS: QUEtiapine FUMARATE 25 MG TABLET PO SCH (10:23)
[2023-10-13] MEDS: ISOSORBIDE MONONITRATE 30 MG TAB.SR.24H (FP) PO SCH (10:23)
[2023-10-13] MEDS: DULoxetine HCL 30 MG CAPSULE.DR PO SCH (10:24)
[2023-10-13] MEDS: morphine SO4 SUSTAINED ACTING 15 MG TABLET.SA PO SCH ×2 (10:24→22:14)
[2023-10-13] MEDS: FAMOTIDINE 20 MG TABLET PO SCH (10:25)
[2023-10-13] MEDS: ENOXAPARIN NA (PORCINE) 60 MG/0.6 ML DISP.SYRIN SQ SCH ×2 (13:05→22:15)
[2023-10-13] MEDS ORDERED: REMDESIVIR 200 MG in SODIUM CHLORIDE 250 ML IVPB ONE (14:00)
[2023-10-13 15:41] VITALS: BMI 22.2
[2023-10-13] MEDS: PIPERACILLIN/TAZOB 3.375 GM 3.375 GM in DEXTROSE 5%-WATER - 50 ML IVPB SCH (17:57)
[2023-10-13] MEDS: LOSARTAN POTASSIUM 25 MG TABLET PO SCH (22:14)
[2023-10-13] MEDS: ATORVASTATIN CA 10 MG TABLET (FP) PO SCH (22:14)
[2023-10-13] MEDS: MIRTAZAPINE 15 MG TABLET (FP) PO SCH (22:14)
[2023-10-14] MEDS: PIPERACILLIN/TAZOB 3.375 GM 3.375 GM in DEXTROSE 5%-WATER - 50 ML IVPB SCH ×3 (01:51→17:01)
[2023-10-14] MEDS: CARBIDOPA/LEVODOPA 25/250 TABLET (FP) PO SCH ×3 (06:11→22:44)
[2023-10-14] MEDS: sitaGLIPtin PHOSPHATE 50 MG TABLET PO SCH (06:11)
[2023-10-14] MEDS: INSULIN ASPART SLIDING SCALE (NOVOLOG) 1 VIAL SQ SCH ×2 (06:12→17:01)
[2023-10-14] MEDS: ENTACAPONE 200 MG TABLET PO SCH ×3 (06:12→22:43)
[2023-10-14] MEDS: NEBIVOLOL 5 MG TABLET (FP) PO SCH (06:12)
[2023-10-14 09:24] LABS: BASO % 0.5 % (0-2.0); EOS % 1.4 % (0-4.5); HEMATOCRIT 24.5 % (32.4-45.2); HEMOGLOBIN 7.6 GM/dL (10.7-15.3); LYMPH % 13.2 % (8-40); MCH 24.4 pg (25.7-33.7); MCHC 31.1 g/dl (32.0-36.0); MEAN CELL VOLUME 78.4 fl (80-96); MEAN PLT VOLUME 6.5 fl (7.5-11.1); MONO % 10.5 % (3.8-10.2); NEUT % 74.4 % (42.8-82.8); PLATELET COUNT 558 10^3/uL (134-434); RBC 3.13 M/mm3 (3.60-5.2); RDW 16.8 % (11.6-15.6); WHITE BLOOD COUNT 7.5 K/mm3 (4.0-10.0)
[2023-10-14 09:42] LABS: POTASSIUM 3.5 mmol/L (3.5-5.1)
[2023-10-14 09:56] LABS: ALBUMIN 1.9 g/dl (3.4-5.0); CALCIUM 8.2 mg/dL (8.5-10.1); MAGNESIUM 2.1 mg/dL (1.8-2.4)
[2023-10-14 09:59] LABS: CREATININE 0.4 mg/dL (0.55-1.3)
[2023-10-14 10:00] LABS: TOT PROT 5.3 g/dl (6.4-8.2)
[2023-10-14] MEDS: morphine SO4 SUSTAINED ACTING 15 MG TABLET.SA PO SCH ×2 (10:00→22:43)
[2023-10-14] MEDS: DULoxetine HCL 30 MG CAPSULE.DR PO SCH (10:00)
[2023-10-14] MEDS: ISOSORBIDE MONONITRATE 30 MG TAB.SR.24H (FP) PO SCH (10:00)
[2023-10-14] MEDS: QUEtiapine FUMARATE 25 MG TABLET PO SCH (10:00)
[2023-10-14 10:03] LABS: BILIRUBIN,TOTAL 0.4 mg/dL (0.2-1)
[2023-10-14] MEDS: ENOXAPARIN NA (PORCINE) 60 MG/0.6 ML DISP.SYRIN SQ SCH ×2 (10:03→22:45)
[2023-10-14] MEDS: FAMOTIDINE 20 MG TABLET PO SCH (10:03)
[2023-10-14] MEDS: REMDESIVIR 100 MG in SODIUM CHLORIDE 250 ML IVPB SCH (10:42)
[2023-10-14] MEDS ORDERED: BISACODYL 5 MG TABLET.DR (FP) PO PRN (11:19)
[2023-10-14] MEDS: AMINO ACIDS/PROTEIN HYDROLYS 30 ML LIQUID.PKT PO SCH (17:01)
[2023-10-14] MEDS: ATORVASTATIN CA 10 MG TABLET (FP) PO SCH (22:44)
[2023-10-14] MEDS: MIRTAZAPINE 15 MG TABLET (FP) PO SCH (22:44)
[2023-10-14] MEDS: LOSARTAN POTASSIUM 25 MG TABLET PO SCH (22:44)
[2023-10-15] MEDS: PIPERACILLIN/TAZOB 3.375 GM 3.375 GM in DEXTROSE 5%-WATER - 50 ML IVPB SCH ×3 (01:31→17:13)
[2023-10-15] MEDS ORDERED: DEXTROSE 5%-0.45% SALINE 1,000 ML IV SCH (03:45)
[2023-10-15] MEDS: CARBIDOPA/LEVODOPA 25/250 TABLET (FP) PO SCH ×3 (06:00→21:57)
[2023-10-15] MEDS: sitaGLIPtin PHOSPHATE 50 MG TABLET PO SCH (06:00)
[2023-10-15] MEDS: ENTACAPONE 200 MG TABLET PO SCH ×3 (06:01→21:58)
[2023-10-15] MEDS: NEBIVOLOL 5 MG TABLET (FP) PO SCH (06:01)
[2023-10-15] MEDS: INSULIN ASPART SLIDING SCALE (NOVOLOG) 1 VIAL SQ SCH ×2 (06:11→16:33)
[2023-10-15 09:25] LABS: BASO % 0.3 % (0-2.0); EOS % 1.2 % (0-4.5); HEMATOCRIT 27.3 % (32.4-45.2); HEMOGLOBIN 8.8 GM/dL (10.7-15.3); LYMPH % 18.2 % (8-40); MCH 25.5 pg (25.7-33.7); MCHC 32.2 g/dl (32.0-36.0); MEAN CELL VOLUME 79.4 fl (80-96); MEAN PLT VOLUME 6.6 fl (7.5-11.1); MONO % 9.8 % (3.8-10.2); NEUT % 70.5 % (42.8-82.8); PLATELET COUNT 525 10^3/uL (134-434); RBC 3.44 M/mm3 (3.60-5.2); RDW 17.7 % (11.6-15.6); WHITE BLOOD COUNT 7.8 K/mm3 (4.0-10.0)
[2023-10-15] MEDS ORDERED: BISACODYL 5 MG TABLET.DR (FP) PO PRN ×2 (09:38→13:24)
[2023-10-15 09:42] LABS: INR 1.34 (0.83-1.09); PROTHROMBIN TIME (PATIENT) 15.5 SEC (9.7-13.0)
[2023-10-15 09:51] LABS: POTASSIUM 3.7 mmol/L (3.5-5.1)
[2023-10-15 09:58] LABS: ALBUMIN 1.9 g/dl (3.4-5.0); BLOOD UREA NITROGEN 16.1 mg/dL (7-18); MAGNESIUM 2.2 mg/dL (1.8-2.4)
[2023-10-15 10:01] LABS: CREATININE 0.4 mg/dL (0.55-1.3)
[2023-10-15] MEDS: DULoxetine HCL 30 MG CAPSULE.DR PO SCH (10:01)
[2023-10-15] MEDS: AMINO ACIDS/PROTEIN HYDROLYS 30 ML LIQUID.PKT PO SCH ×2 (10:01→17:13)
[2023-10-15] MEDS: ENOXAPARIN NA (PORCINE) 60 MG/0.6 ML DISP.SYRIN SQ SCH ×3 (10:02→21:57)
[2023-10-15] MEDS: ISOSORBIDE MONONITRATE 30 MG TAB.SR.24H (FP) PO SCH (10:02)
[2023-10-15] MEDS: morphine SO4 SUSTAINED ACTING 15 MG TABLET.SA PO SCH (10:02)
[2023-10-15 10:03] LABS: BILIRUBIN,TOTAL 0.5 mg/dL (0.2-1); TOT PROT 5.2 g/dl (6.4-8.2)
[2023-10-15] MEDS: QUEtiapine FUMARATE 25 MG TABLET PO SCH (10:04)
[2023-10-15] MEDS ORDERED: LIDOCAINE HCL 1%, 10 MG/ML (20ML VIAL) ONE (10:10)
[2023-10-15] MEDS: FAMOTIDINE 20 MG TABLET PO SCH (10:25)
[2023-10-15] MEDS: REMDESIVIR 100 MG in SODIUM CHLORIDE 250 ML IVPB SCH (11:05)
[2023-10-15] MEDS ORDERED: PROPOFOL 20 ML ONE (11:37)
[2023-10-15] MEDS ORDERED: LACTATED RINGERS SOLUTION 1,000 ML IV SCH (13:00)
[2023-10-15] MEDS ORDERED: ACETAMINOPHEN 500 MG TABLET (FP) PO PRN (13:24)
[2023-10-15] MEDS ORDERED: oxyCODONE HCL 5 MG TABLET PO PRN ×2 (13:24)
[2023-10-15] MEDS: DEXTROSE 5%-0.45% SALINE 1,000 ML IV SCH (15:51)
[2023-10-15] MEDS: MIRTAZAPINE 15 MG TABLET (FP) PO SCH (21:57)
[2023-10-15] MEDS: ATORVASTATIN CA 10 MG TABLET (FP) PO SCH (21:57)
[2023-10-15] MEDS: LOSARTAN POTASSIUM 25 MG TABLET PO SCH (21:57)
[2023-10-16] MEDS: PIPERACILLIN/TAZOB 3.375 GM 3.375 GM in DEXTROSE 5%-WATER - 50 ML IVPB SCH ×3 (01:44→17:46)
[2023-10-16 02:00] VITALS: RESP 18
[2023-10-16] MEDS: CARBIDOPA/LEVODOPA 25/250 TABLET (FP) PO SCH ×3 (06:17→22:39)
[2023-10-16] MEDS: ENTACAPONE 200 MG TABLET PO SCH ×3 (06:18→22:39)
[2023-10-16] MEDS: sitaGLIPtin PHOSPHATE 50 MG TABLET PO SCH (06:18)
[2023-10-16] MEDS: NEBIVOLOL 5 MG TABLET (FP) PO SCH (06:18)
[2023-10-16] MEDS: INSULIN ASPART SLIDING SCALE (NOVOLOG) 1 VIAL SQ SCH ×2 (06:19→17:44)
[2023-10-16] MEDS: AMINO ACIDS/PROTEIN HYDROLYS 30 ML LIQUID.PKT PO SCH ×2 (08:49→17:46)
[2023-10-16 08:56] LABS: BASO % 0.5 % (0-2.0); EOS % 0.6 % (0-4.5); HEMATOCRIT 29.4 % (32.4-45.2); HEMOGLOBIN 9.6 GM/dL (10.7-15.3); MCH 25.7 pg (25.7-33.7); MCHC 32.6 g/dl (32.0-36.0); MEAN PLT VOLUME 6.5 fl (7.5-11.1); MONO % 10.1 % (3.8-10.2); NEUT % 75.8 % (42.8-82.8); PLATELET COUNT 575 10^3/uL (134-434); RBC 3.72 M/mm3 (3.60-5.2); RDW 17.2 % (11.6-15.6); WHITE BLOOD COUNT 8.1 K/mm3 (4.0-10.0)
[2023-10-16 09:14] LABS: POTASSIUM 3.7 mmol/L (3.5-5.1)
[2023-10-16 09:23] LABS: BILIRUBIN,TOTAL 0.4 mg/dL (0.2-1); BLOOD UREA NITROGEN 11.4 mg/dL (7-18); TOT PROT 5.4 g/dl (6.4-8.2)
[2023-10-16 09:25] LABS: CREATININE 0.4 mg/dL (0.55-1.3)
[2023-10-16 09:27] LABS: CALCIUM 8.3 mg/dL (8.5-10.1); MAGNESIUM 2.1 mg/dL (1.8-2.4)
[2023-10-16] MEDS: DULoxetine HCL 30 MG CAPSULE.DR PO SCH (09:47)
[2023-10-16] MEDS: ENOXAPARIN NA (PORCINE) 60 MG/0.6 ML DISP.SYRIN SQ SCH ×2 (09:47→22:40)
[2023-10-16] MEDS: ISOSORBIDE MONONITRATE 30 MG TAB.SR.24H (FP) PO SCH (09:47)
[2023-10-16] MEDS: FAMOTIDINE 20 MG TABLET PO SCH (09:47)
[2023-10-16] MEDS: QUEtiapine FUMARATE 25 MG TABLET PO SCH (09:48)
[2023-10-16] MEDS: DEXTROSE 5%-0.45% SALINE 1,000 ML IV SCH (13:54)
[2023-10-16] MEDS ORDERED: INSULIN (NOVOLOG) ASPART 100 UNITS/ML 10ML VIAL ONE (17:40)
[2023-10-16] MEDS: COLLAGENASE CLOSTRIDIUM HIST. 30 GRAMS TUBE TP SCH (17:45)
[2023-10-16] MEDS: MIRTAZAPINE 15 MG TABLET (FP) PO SCH (22:40)
[2023-10-16] MEDS: ATORVASTATIN CA 10 MG TABLET (FP) PO SCH (22:40)
[2023-10-16] MEDS: LOSARTAN POTASSIUM 25 MG TABLET PO SCH (22:40)
[2023-10-17] MEDS: PIPERACILLIN/TAZOB 3.375 GM 3.375 GM in DEXTROSE 5%-WATER - 50 ML IVPB SCH ×3 (02:41→18:04)
[2023-10-17] MEDS ORDERED: INSULIN (NOVOLOG) ASPART 100 UNITS/ML 10ML VIAL ONE (05:34)
[2023-10-17] MEDS: ENTACAPONE 200 MG TABLET PO SCH ×3 (06:14→22:12)
[2023-10-17] MEDS: NEBIVOLOL 5 MG TABLET (FP) PO SCH (06:14)
[2023-10-17] MEDS: sitaGLIPtin PHOSPHATE 50 MG TABLET PO SCH (06:14)
[2023-10-17] MEDS: CARBIDOPA/LEVODOPA 25/250 TABLET (FP) PO SCH ×3 (06:14→22:12)
[2023-10-17] MEDS: INSULIN ASPART SLIDING SCALE (NOVOLOG) 1 VIAL SQ SCH ×2 (06:15→18:08)
[2023-10-17 09:34] LABS: BASO % 0.6 % (0-2.0); EOS % 1.8 % (0-4.5); LYMPH % 16.5 % (8-40); MCH 25.7 pg (25.7-33.7); MCHC 32.2 g/dl (32.0-36.0); MEAN CELL VOLUME 79.7 fl (80-96); MEAN PLT VOLUME 6.7 fl (7.5-11.1); NEUT % 69.1 % (42.8-82.8); PLATELET COUNT 609 10^3/uL (134-434); RBC 3.52 M/mm3 (3.60-5.2); RDW 17.4 % (11.6-15.6); WHITE BLOOD COUNT 7.1 K/mm3 (4.0-10.0)
[2023-10-17 09:47] LABS: POTASSIUM 3.7 mmol/L (3.5-5.1)
[2023-10-17 10:02] LABS: CALCIUM 8.6 mg/dL (8.5-10.1)
[2023-10-17 10:03] LABS: ALBUMIN 2.1 g/dl (3.4-5.0); BLOOD UREA NITROGEN 8.6 mg/dL (7-18); MAGNESIUM 1.9 mg/dL (1.8-2.4)
[2023-10-17 10:06] LABS: CREATININE 0.4 mg/dL (0.55-1.3)
[2023-10-17 10:07] LABS: TOT PROT 5.6 g/dl (6.4-8.2)
[2023-10-17 10:08] LABS: BILIRUBIN,TOTAL 0.4 mg/dL (0.2-1)
[2023-10-17] MEDS: QUEtiapine FUMARATE 25 MG TABLET PO SCH (11:00)
[2023-10-17] MEDS: AMINO ACIDS/PROTEIN HYDROLYS 30 ML LIQUID.PKT PO SCH ×2 (11:00→18:05)
[2023-10-17] MEDS: ENOXAPARIN NA (PORCINE) 60 MG/0.6 ML DISP.SYRIN SQ SCH ×2 (11:00→22:12)
[2023-10-17] MEDS: ISOSORBIDE MONONITRATE 30 MG TAB.SR.24H (FP) PO SCH (11:00)
[2023-10-17] MEDS: DULoxetine HCL 30 MG CAPSULE.DR PO SCH (11:00)
[2023-10-17] MEDS: FAMOTIDINE 20 MG TABLET PO SCH (11:00)
[2023-10-17] MEDS: COLLAGENASE CLOSTRIDIUM HIST. 30 GRAMS TUBE TP SCH (11:03)
[2023-10-17] MEDS: ATORVASTATIN CA 10 MG TABLET (FP) PO SCH (22:12)
[2023-10-17] MEDS: MIRTAZAPINE 15 MG TABLET (FP) PO SCH (22:12)
[2023-10-17] MEDS: LOSARTAN POTASSIUM 25 MG TABLET PO SCH (22:12)
[2023-10-18] MEDS: PIPERACILLIN/TAZOB 3.375 GM 3.375 GM in DEXTROSE 5%-WATER - 50 ML IVPB SCH ×3 (02:30→17:50)
[2023-10-18] MEDS: sitaGLIPtin PHOSPHATE 50 MG TABLET PO SCH (06:42)
[2023-10-18] MEDS: ENTACAPONE 200 MG TABLET PO SCH ×3 (06:42→23:37)
[2023-10-18] MEDS: INSULIN ASPART SLIDING SCALE (NOVOLOG) 1 VIAL SQ SCH ×2 (06:42→17:49)
[2023-10-18] MEDS: NEBIVOLOL 5 MG TABLET (FP) PO SCH (06:42)
[2023-10-18] MEDS: CARBIDOPA/LEVODOPA 25/250 TABLET (FP) PO SCH ×3 (06:42→22:05)
[2023-10-18 08:53] LABS: BASO % 0.6 % (0-2.0); HEMATOCRIT 29.9 % (32.4-45.2); HEMOGLOBIN 9.5 GM/dL (10.7-15.3); LYMPH % 20.2 % (8-40); MCH 25.5 pg (25.7-33.7); MCHC 31.9 g/dl (32.0-36.0); MEAN CELL VOLUME 80.1 fl (80-96); MEAN PLT VOLUME 6.5 fl (7.5-11.1); MONO % 10.2 % (3.8-10.2); PLATELET COUNT 648 10^3/uL (134-434); RBC 3.74 M/mm3 (3.60-5.2); RDW 18.4 % (11.6-15.6); WHITE BLOOD COUNT 6.3 K/mm3 (4.0-10.0)
[2023-10-18 09:25] LABS: POTASSIUM 3.5 mmol/L (3.5-5.1)
[2023-10-18 09:29] LABS: CALCIUM 9.1 mg/dL (8.5-10.1)
[2023-10-18 09:30] LABS: ALBUMIN 2.3 g/dl (3.4-5.0); MAGNESIUM 2.1 mg/dL (1.8-2.4)
[2023-10-18 09:33] LABS: CREATININE 0.5 mg/dL (0.55-1.3)
[2023-10-18 09:35] LABS: BILIRUBIN,TOTAL 0.4 mg/dL (0.2-1)
[2023-10-18] MEDS: COLLAGENASE CLOSTRIDIUM HIST. 30 GRAMS TUBE TP SCH (10:00)
[2023-10-18] MEDS: AMINO ACIDS/PROTEIN HYDROLYS 30 ML LIQUID.PKT PO SCH ×2 (10:09→17:50)
[2023-10-18] MEDS: DULoxetine HCL 30 MG CAPSULE.DR PO SCH (10:24)
[2023-10-18] MEDS: ENOXAPARIN NA (PORCINE) 60 MG/0.6 ML DISP.SYRIN SQ SCH ×2 (10:24→22:05)
[2023-10-18] MEDS: QUEtiapine FUMARATE 25 MG TABLET PO SCH (10:24)
[2023-10-18] MEDS: ISOSORBIDE MONONITRATE 30 MG TAB.SR.24H (FP) PO SCH (10:24)
[2023-10-18] MEDS: FAMOTIDINE 20 MG TABLET PO SCH (10:27)
[2023-10-18] MEDS: LOSARTAN POTASSIUM 25 MG TABLET PO SCH (22:05)
[2023-10-18] MEDS: MIRTAZAPINE 15 MG TABLET (FP) PO SCH (22:05)
[2023-10-18] MEDS: ATORVASTATIN CA 10 MG TABLET (FP) PO SCH (22:05)
[2023-10-19] MEDS: PIPERACILLIN/TAZOB 3.375 GM 3.375 GM in DEXTROSE 5%-WATER - 50 ML IVPB SCH ×3 (02:45→17:33)
[2023-10-19] MEDS: NEBIVOLOL 5 MG TABLET (FP) PO SCH (06:18)
[2023-10-19] MEDS: sitaGLIPtin PHOSPHATE 50 MG TABLET PO SCH (06:18)
[2023-10-19] MEDS: ENTACAPONE 200 MG TABLET PO SCH ×3 (06:18→22:47)
[2023-10-19] MEDS: CARBIDOPA/LEVODOPA 25/250 TABLET (FP) PO SCH ×3 (06:18→22:46)
[2023-10-19] MEDS: INSULIN ASPART SLIDING SCALE (NOVOLOG) 1 VIAL SQ SCH ×2 (06:19→17:36)
[2023-10-19 10:16] LABS: BASO % 0.6 % (0-2.0); EOS % 1.8 % (0-4.5); HEMATOCRIT 30.8 % (32.4-45.2); HEMOGLOBIN 9.9 GM/dL (10.7-15.3); LYMPH % 17.9 % (8-40); MCH 25.9 pg (25.7-33.7); MCHC 32.2 g/dl (32.0-36.0); MEAN CELL VOLUME 80.6 fl (80-96); MEAN PLT VOLUME 6.9 fl (7.5-11.1); MONO % 9.3 % (3.8-10.2); NEUT % 70.4 % (42.8-82.8); PLATELET COUNT 621 10^3/uL (134-434); RBC 3.82 M/mm3 (3.60-5.2); RDW 18.7 % (11.6-15.6); WHITE BLOOD COUNT 6.5 K/mm3 (4.0-10.0)
[2023-10-19 10:27] LABS: POTASSIUM 3.7 mmol/L (3.5-5.1)
[2023-10-19] MEDS: DULoxetine HCL 30 MG CAPSULE.DR PO SCH (10:42)
[2023-10-19] MEDS: FAMOTIDINE 20 MG TABLET PO SCH (10:42)
[2023-10-19] MEDS: QUEtiapine FUMARATE 25 MG TABLET PO SCH (10:42)
[2023-10-19] MEDS: ISOSORBIDE MONONITRATE 30 MG TAB.SR.24H (FP) PO SCH (10:42)
[2023-10-19] MEDS: ENOXAPARIN NA (PORCINE) 60 MG/0.6 ML DISP.SYRIN SQ SCH ×2 (10:42→22:49)
[2023-10-19] MEDS: AMINO ACIDS/PROTEIN HYDROLYS 30 ML LIQUID.PKT PO SCH ×2 (10:43→17:33)
[2023-10-19] MEDS: COLLAGENASE CLOSTRIDIUM HIST. 30 GRAMS TUBE TP SCH (10:43)
[2023-10-19 11:05] LABS: ALBUMIN 2.3 g/dl (3.4-5.0); CALCIUM 9.1 mg/dL (8.5-10.1)
[2023-10-19 11:06] LABS: BLOOD UREA NITROGEN 7.6 mg/dL (7-18); MAGNESIUM 2.3 mg/dL (1.8-2.4)
[2023-10-19 11:12] LABS: BILIRUBIN,TOTAL 0.3 mg/dL (0.2-1); TOT PROT 6.1 g/dl (6.4-8.2)
[2023-10-19 11:15] LABS: CREATININE 0.5 mg/dL (0.55-1.3)
[2023-10-19] MEDS ORDERED: INSULIN (NOVOLOG) ASPART 100 UNITS/ML 10ML VIAL ONE (17:35)
[2023-10-19] MEDS: MIRTAZAPINE 15 MG TABLET (FP) PO SCH (22:46)
[2023-10-19] MEDS: ATORVASTATIN CA 10 MG TABLET (FP) PO SCH (22:46)
[2023-10-19] MEDS: LOSARTAN POTASSIUM 25 MG TABLET PO SCH (22:47)
[2023-10-20] MEDS: PIPERACILLIN/TAZOB 3.375 GM 3.375 GM in DEXTROSE 5%-WATER - 50 ML IVPB SCH ×2 (01:38→10:37)
[2023-10-20] MEDS: sitaGLIPtin PHOSPHATE 50 MG TABLET PO SCH (06:56)
[2023-10-20] MEDS: CARBIDOPA/LEVODOPA 25/250 TABLET (FP) PO SCH ×3 (06:56→22:29)
[2023-10-20] MEDS: ENTACAPONE 200 MG TABLET PO SCH ×3 (06:56→22:29)
[2023-10-20] MEDS: NEBIVOLOL 5 MG TABLET (FP) PO SCH (06:57)
[2023-10-20] MEDS: INSULIN ASPART SLIDING SCALE (NOVOLOG) 1 VIAL SQ SCH ×2 (07:11→18:00)
[2023-10-20 09:32] LABS: BASO % 0.7 % (0-2.0); EOS % 2.2 % (0-4.5); HEMATOCRIT 30.8 % (32.4-45.2); LYMPH % 17.9 % (8-40); MCH 25.9 pg (25.7-33.7); MCHC 32.3 g/dl (32.0-36.0); MEAN PLT VOLUME 6.6 fl (7.5-11.1); MONO % 6.9 % (3.8-10.2); NEUT % 72.3 % (42.8-82.8); PLATELET COUNT 621 10^3/uL (134-434); RBC 3.85 M/mm3 (3.60-5.2); WHITE BLOOD COUNT 8.2 K/mm3 (4.0-10.0)
[2023-10-20 09:44] LABS: POTASSIUM 3.7 mmol/L (3.5-5.1)
[2023-10-20 09:53] LABS: CALCIUM 9.2 mg/dL (8.5-10.1)
[2023-10-20 09:54] LABS: ALBUMIN 2.3 g/dl (3.4-5.0); BLOOD UREA NITROGEN 12.6 mg/dL (7-18); MAGNESIUM 2.2 mg/dL (1.8-2.4)
[2023-10-20 09:57] LABS: CREATININE 0.5 mg/dL (0.55-1.3)
[2023-10-20 09:58] LABS: BILIRUBIN,TOTAL 0.3 mg/dL (0.2-1)
[2023-10-20] MEDS: DULoxetine HCL 30 MG CAPSULE.DR PO SCH (10:37)
[2023-10-20] MEDS: AMINO ACIDS/PROTEIN HYDROLYS 30 ML LIQUID.PKT PO SCH ×2 (10:37→18:00)
[2023-10-20] MEDS: ENOXAPARIN NA (PORCINE) 60 MG/0.6 ML DISP.SYRIN SQ SCH ×2 (10:37→22:29)
[2023-10-20] MEDS: QUEtiapine FUMARATE 25 MG TABLET PO SCH (10:37)
[2023-10-20] MEDS: ISOSORBIDE MONONITRATE 30 MG TAB.SR.24H (FP) PO SCH (10:37)
[2023-10-20] MEDS: FAMOTIDINE 20 MG TABLET PO SCH (10:37)
[2023-10-20] MEDS: COLLAGENASE CLOSTRIDIUM HIST. 30 GRAMS TUBE TP SCH (15:40)
[2023-10-20] MEDS ORDERED: AMOX TR/POT CLAV 875MG/125MG TABLETS (FP) PO SCH (17:30)
[2023-10-20] MEDS ORDERED: CEFUROXIME AXETIL 500 MG TABLET PO SCH (22:00)
[2023-10-20] MEDS: MIRTAZAPINE 15 MG TABLET (FP) PO SCH (22:29)
[2023-10-20] MEDS: ATORVASTATIN CA 10 MG TABLET (FP) PO SCH (22:29)
[2023-10-20] MEDS: LOSARTAN POTASSIUM 25 MG TABLET PO SCH (22:29)
[2023-10-20 23:41] VITALS: BP 149/43; PULSE 63; TEMP 98.2
== END 2023-10-21 00:40 | DRG 579 ==
LOC: JER 13:37 → JERBED 16:33 → J5S 20:02 → J8W 21:39
PROVIDERS: ADMIT Internal Medicine; ATTEND Nurse Practitioner Acute Care
PROC: XW033E5 Introduction of Remdesivir Anti-infective into Peripheral Vein, Percutaneous Approach, New Technology Group 5 (ICD-10-PCS; 2023-10-12)
PROC: 30233N1 Transfusion of Nonautologous Red Blood Cells into Peripheral Vein, Percutaneous Approach (ICD-10-PCS; 2023-10-14)
PROC: 0KBN0ZZ Excision of Right Hip Muscle, Open Approach (ICD-10-PCS; 2023-10-15)
PROC: 0KBP0ZZ Excision of Left Hip Muscle, Open Approach (ICD-10-PCS; principal; 2023-10-15 12:00)
DX: L89.153 Pressure ulcer of sacral region, stage 3 (principal); E43 Unspecified severe protein-calorie malnutrition; U07.1 COVID-19; N39.0 Urinary tract infection, site not specified; F32.A Depression, unspecified; I10 Essential (primary) hypertension; E11.9 Type 2 diabetes mellitus without complications; F03.90 Unspecified dementia, unspecified severity, without behavioral disturbance, psychotic disturbance, mood disturbance, and anxiety; D64.9 Anemia, unspecified; D47.3 Essential (hemorrhagic) thrombocythemia; E78.5 Hyperlipidemia, unspecified; G20.A1 Parkinson's disease without dyskinesia, without mention of fluctuations; Z85.038 Personal history of other malignant neoplasm of large intestine; L08.9 Local infection of the skin and subcutaneous tissue, unspecified; Z68.22 Body mass index [BMI] 22.0-22.9, adult
CPT/HCPCS: 0241U-QW; 36415; 36430; 71045-TC-FY; 71275-TC; 80053; 81003; 82550; 82553; 82803; 82962; 83036; 83605; 83735; 84100; 84484; 85025; 85610; 85730; 86480; 86850; 86900; 86901; 86922; 87040; 87070; 87076; 87086; 87186; 87205; 87635; 88304-TC; 93005; 93010; 94760; 97116-GP; 97161-GP; 99285-25; J0248; P9038; P9058; Q9967

== ENCOUNTER 2023-12-24 13:19 | Inpatient (IN) | payer OTHER ==
[2023-12-24] MEDS: DEXTROSE 50%-WATER 25 GM/50 ML DISP.SYRIN IVPUSH ONE (14:00)
[2023-12-24] MEDS ORDERED: DEXTROSE 50%-WATER 25 GM/50 ML DISP.SYRIN ONE (14:03)
[2023-12-24 14:54] LABS: VENOUS BASE EXCESS -2.3 mmol/L (-2-2); VENOUS O2 SATURATION 26.8 % (70-80); VENOUS PCO2 58.6 mmHg (38-52); VENOUS PH 7.256 (7.310-7.410)
[2023-12-24 14:54] LABS: BASO % 0.5 % (0-2.0); EOS % 0.9 % (0-4.5); HEMATOCRIT 26.9 % (32.4-45.2); HEMOGLOBIN 8.3 GM/dL (10.7-15.3); LYMPH % 14.7 % (8-40); MCH 23.6 pg (25.7-33.7); MCHC 30.9 g/dl (32.0-36.0); MEAN CELL VOLUME 76.2 fl (80-96); MEAN PLT VOLUME 7.1 fl (7.5-11.1); MONO % 12.1 % (3.8-10.2); NEUT % 71.8 % (42.8-82.8); PLATELET COUNT 601 10^3/uL (134-434); RBC 3.53 M/mm3 (3.60-5.2); RDW 20.1 % (11.6-15.6)
[2023-12-24 15:01] LABS: INR 1.11 (0.83-1.09); PROTHROMBIN TIME (PATIENT) 12.9 SEC (9.7-13.0)
[2023-12-24 15:03] LABS: ACTIVATED PTT 27.7 SECONDS (25.2-36.5)
[2023-12-24 15:14] LABS: POTASSIUM 4.1 mmol/L (3.5-5.1)
[2023-12-24 15:15] LABS: CALCIUM 8.6 mg/dL (8.5-10.1)
[2023-12-24 15:16] LABS: BLOOD UREA NITROGEN 14.5 mg/dL (7-18)
[2023-12-24 15:19] LABS: CREATININE 0.4 mg/dL (0.55-1.3)
[2023-12-24 15:21] LABS: BILIRUBIN,TOTAL 0.4 mg/dL (0.2-1); TOT PROT 6.2 g/dl (6.4-8.2)
[2023-12-24 15:23] LABS: LACTIC ACID 2.1 mmol/L (0.4-2.0)
[2023-12-24 15:31] LABS: EPI CELLS >36 /uL (0-25.1); HYALINE CASTS 72 /uL (0-3.1); PH,URINE 6.5 (5.0-8.0); URINE APPEARANCE TURBID; URINE BACTERIA 4 /uL (0-1359); URINE BILIRUBIN NEGATIVE (NEGATIVE); URINE COLOR DK YELLOW; URINE GLUCOSE (UA) TRACE (NEGATIVE); URINE KETONE NEGATIVE (NEGATIVE); URINE LEUK ESTERASE 2+ (NEGATIVE); URINE NITRITE NEGATIVE (NEGATIVE); URINE PROTEIN NEGATIVE (NEGATIVE); URINE UROBILINOGEN 0.2 mg/dL (0.2-1.0); URINE WBC 755 /uL (0-25.8)
[2023-12-24] MEDS ORDERED: fentaNYL CITRATE 250 MCG/5 ML VIAL ONE (15:49)
[2023-12-24] MEDS ORDERED: MIDAZOLAM HCL 2 MG/2 ML SINGLE DOSE VIAL ONE (16:35)
[2023-12-24] MEDS: MIDAZOLAM HCL 2 MG/2 ML SINGLE DOSE VIAL IVPUSH ONE (16:44)
[2023-12-24 16:57] LABS: URINE CRYSTALS NONE SEEN /hpf; URINE RBC 730 /uL (0-23.9); YEAST PRESENT (NEGATIVE)
[2023-12-24] MEDS ORDERED: CEFTRIAXONE 1 GM/50 ML BAG ONE (18:30)
[2023-12-24] MEDS: SODIUM CHLORIDE 0.9% 500 ML INFUS.BAG IV ONE (18:48)
[2023-12-24] MEDS: CEFTRIAXONE 1,000 MG in DEXTROSE 5%-WATER - 50 ML IVPB ONE (18:48)
[2023-12-24] MEDS: ENOXAPARIN NA (PORCINE) 60 MG/0.6 ML DISP.SYRIN SQ SCH (22:04)
[2023-12-24] MEDS: INSULIN ASPART SLIDING SCALE (NOVOLOG) 1 VIAL SQ SCH (22:04)
[2023-12-25] MEDS: SODIUM CHLORIDE 1,000 ML IV SCH (00:52)
[2023-12-25 08:55] LABS: BASO % 0.5 % (0-2.0); EOS % 0.8 % (0-4.5); HEMATOCRIT 25.5 % (32.4-45.2); HEMOGLOBIN 8.1 GM/dL (10.7-15.3); LYMPH % 15.4 % (8-40); MCH 23.6 pg (25.7-33.7); MCHC 31.7 g/dl (32.0-36.0); MEAN CELL VOLUME 74.7 fl (80-96); MEAN PLT VOLUME 6.7 fl (7.5-11.1); MONO % 11.4 % (3.8-10.2); NEUT % 71.9 % (42.8-82.8); PLATELET COUNT 569 10^3/uL (134-434); RBC 3.41 M/mm3 (3.60-5.2); RDW 19.8 % (11.6-15.6)
[2023-12-25 09:11] LABS: POTASSIUM 4.1 mmol/L (3.5-5.1)
[2023-12-25 09:17] LABS: CALCIUM 8.7 mg/dL (8.5-10.1)
[2023-12-25 09:18] LABS: ALBUMIN 1.8 g/dl (3.4-5.0); BLOOD UREA NITROGEN 9.9 mg/dL (7-18); MAGNESIUM 2.1 mg/dL (1.8-2.4)
[2023-12-25 09:21] LABS: CREATININE 0.4 mg/dL (0.55-1.3); PHOSPHOROUS 3.7 mg/dL (2.5-4.9)
[2023-12-25 09:22] LABS: BILIRUBIN,TOTAL 0.4 mg/dL (0.2-1); TOT PROT 5.6 g/dl (6.4-8.2)
[2023-12-25] MEDS: CEFTRIAXONE 1 GM in DEXTROSE 5%-WATER - 50 ML IVPB SCH (09:46)
[2023-12-25] MEDS ORDERED: oxyCODONE HCL 5 MG TABLET PO PRN (16:24)
[2023-12-25] MEDS: CARBIDOPA/LEVODOPA 25/250 TABLET (FP) PO SCH (16:38)
[2023-12-25] MEDS: INSULIN ASPART SLIDING SCALE (NOVOLOG) 1 VIAL SQ SCH (16:47)
[2023-12-25] MEDS: PIPERACILLIN/TAZOB 4.5 GM 4.5 GM in DEXTROSE 5%-WATER 100 ML IVPB SCH (17:13)
[2023-12-25] MEDS: LOSARTAN POTASSIUM 25 MG TABLET PO SCH (22:20)
[2023-12-25] MEDS: MIRTAZAPINE 15 MG TABLET (FP) PO SCH (22:20)
[2023-12-25] MEDS: ENTACAPONE 200 MG TABLET PO SCH (22:22)
[2023-12-25] MEDS: ENOXAPARIN NA (PORCINE) 60 MG/0.6 ML DISP.SYRIN SQ SCH (22:25)
[2023-12-26] MEDS: NEBIVOLOL 5 MG TABLET (FP) PO SCH (06:00)
[2023-12-26] MEDS ORDERED: PIPERACILLIN/TAZOBACTAM 4.5 GM VIAL IVPB ONE (09:18)
[2023-12-26] MEDS: ISOSORBIDE MONONITRATE 30 MG TAB.SR.24H (FP) PO SCH (09:20)
[2023-12-26] MEDS: QUEtiapine FUMARATE 25 MG TABLET PO SCH (09:20)
[2023-12-26] MEDS: DULoxetine HCL 30 MG CAPSULE.DR PO SCH (09:21)
[2023-12-26 09:37] LABS: BASO % 0.5 % (0-2.0); EOS % 0.9 % (0-4.5); LYMPH % 19.7 % (8-40); MCH 23.8 pg (25.7-33.7); MCHC 31.9 g/dl (32.0-36.0); MEAN CELL VOLUME 74.6 fl (80-96); MEAN PLT VOLUME 6.5 fl (7.5-11.1); MONO % 11.2 % (3.8-10.2); NEUT % 67.7 % (42.8-82.8); PLATELET COUNT 570 10^3/uL (134-434); RBC 3.35 M/mm3 (3.60-5.2); WHITE BLOOD COUNT 5.7 K/mm3 (4.0-10.0)
[2023-12-26 09:55] LABS: POTASSIUM 3.8 mmol/L (3.5-5.1)
[2023-12-26 10:01] LABS: CALCIUM 8.4 mg/dL (8.5-10.1)
[2023-12-26 10:02] LABS: ALBUMIN 1.9 g/dl (3.4-5.0); BLOOD UREA NITROGEN 8.6 mg/dL (7-18)
[2023-12-26 10:03] LABS: CREATININE 0.5 mg/dL (0.55-1.3)
[2023-12-26 10:04] LABS: TOT PROT 5.8 g/dl (6.4-8.2)
[2023-12-26 10:05] LABS: BILIRUBIN,TOTAL 0.4 mg/dL (0.2-1)
[2023-12-26 13:29] VITALS: BMI 20.6
[2023-12-26] MEDS: ATORVASTATIN CA 10 MG TABLET (FP) PO SCH (22:09)
[2023-12-27 10:04] LABS: BASO % 0.8 % (0-2.0); HEMATOCRIT 25.9 % (32.4-45.2); HEMOGLOBIN 7.9 GM/dL (10.7-15.3); LYMPH % 24.7 % (8-40); MCH 23.5 pg (25.7-33.7); MCHC 30.6 g/dl (32.0-36.0); MEAN CELL VOLUME 76.6 fl (80-96); MEAN PLT VOLUME 6.8 fl (7.5-11.1); MONO % 9.5 % (3.8-10.2); PLATELET COUNT 617 10^3/uL (134-434); RBC 3.38 M/mm3 (3.60-5.2); RDW 19.8 % (11.6-15.6); WHITE BLOOD COUNT 5.3 K/mm3 (4.0-10.0)
[2023-12-27 10:19] LABS: POTASSIUM 3.9 mmol/L (3.5-5.1)
[2023-12-27 10:24] LABS: CALCIUM 8.5 mg/dL (8.5-10.1)
[2023-12-27 10:26] LABS: BLOOD UREA NITROGEN 8.7 mg/dL (7-18)
[2023-12-27 10:29] LABS: BILIRUBIN,TOTAL 0.5 mg/dL (0.2-1); CREATININE 0.5 mg/dL (0.55-1.3)
[2023-12-28 09:33] LABS: BASO % 0.7 % (0-2.0); EOS % 0.6 % (0-4.5); HEMATOCRIT 28.2 % (32.4-45.2); HEMOGLOBIN 8.8 GM/dL (10.7-15.3); LYMPH % 18.4 % (8-40); MCH 23.8 pg (25.7-33.7); MCHC 31.2 g/dl (32.0-36.0); MEAN CELL VOLUME 76.3 fl (80-96); MEAN PLT VOLUME 6.7 fl (7.5-11.1); MONO % 6.5 % (3.8-10.2); NEUT % 73.8 % (42.8-82.8); PLATELET COUNT 732 10^3/uL (134-434); RDW 20.4 % (11.6-15.6); WHITE BLOOD COUNT 7.5 K/mm3 (4.0-10.0)
[2023-12-28 09:54] LABS: POTASSIUM 3.5 mmol/L (3.5-5.1)
[2023-12-28 09:59] LABS: ALBUMIN 2.2 g/dl (3.4-5.0); BLOOD UREA NITROGEN 6.5 mg/dL (7-18)
[2023-12-28 10:02] LABS: BILIRUBIN,TOTAL 0.4 mg/dL (0.2-1)
[2023-12-28 10:03] LABS: CREATININE 0.6 mg/dL (0.55-1.3); TOT PROT 6.8 g/dl (6.4-8.2)
[2023-12-29 09:33] LABS: BASO % 0.7 % (0-2.0); EOS % 1.9 % (0-4.5); HEMATOCRIT 27.4 % (32.4-45.2); HEMOGLOBIN 8.3 GM/dL (10.7-15.3); LYMPH % 23.5 % (8-40); MCH 23.2 pg (25.7-33.7); MCHC 30.3 g/dl (32.0-36.0); MEAN CELL VOLUME 76.4 fl (80-96); MEAN PLT VOLUME 6.6 fl (7.5-11.1); MONO % 7.4 % (3.8-10.2); NEUT % 66.5 % (42.8-82.8); PLATELET COUNT 714 10^3/uL (134-434); RBC 3.59 M/mm3 (3.60-5.2); RDW 19.9 % (11.6-15.6); WHITE BLOOD COUNT 7.5 K/mm3 (4.0-10.0)
[2023-12-29 09:50] LABS: POTASSIUM 3.9 mmol/L (3.5-5.1)
[2023-12-29 09:53] LABS: BLOOD UREA NITROGEN 7.9 mg/dL (7-18); CALCIUM 8.5 mg/dL (8.5-10.1)
[2023-12-29 09:56] LABS: CREATININE 0.5 mg/dL (0.55-1.3)
[2023-12-29 09:57] LABS: BILIRUBIN,TOTAL 0.3 mg/dL (0.2-1); TOT PROT 6.1 g/dl (6.4-8.2)
[2023-12-30 09:27] LABS: BASO % 0.9 % (0-2.0); EOS % 2.4 % (0-4.5); HEMATOCRIT 28.8 % (32.4-45.2); HEMOGLOBIN 8.8 GM/dL (10.7-15.3); LYMPH % 32.1 % (8-40); MCH 23.6 pg (25.7-33.7); MCHC 30.7 g/dl (32.0-36.0); MEAN CELL VOLUME 76.9 fl (80-96); MEAN PLT VOLUME 6.7 fl (7.5-11.1); MONO % 8.5 % (3.8-10.2); NEUT % 56.1 % (42.8-82.8); PLATELET COUNT 774 10^3/uL (134-434); RBC 3.75 M/mm3 (3.60-5.2); RDW 20.5 % (11.6-15.6); WHITE BLOOD COUNT 7.7 K/mm3 (4.0-10.0)
[2023-12-30 09:42] LABS: CHLORIDE 106 mmol/L (98-107); POTASSIUM 3.8 mmol/L (3.5-5.1); SODIUM 135 mmol/L (136-145)
[2023-12-30 09:44] LABS: ALBUMIN 2.2 g/dl (3.4-5.0); ANION GAP 3 mmol/L (4-13); BLOOD UREA NITROGEN 9.9 mg/dL (7-18); CALCIUM 8.8 mg/dL (8.5-10.1); CO2 26 mmol/L (21-32); GLUCOSE,RANDOM 113 mg/dL (74-106)
[2023-12-30 09:47] LABS: CREATININE 0.7 mg/dL (0.55-1.3); SGOT/AST 12 U/L (15-37); SGPT/ALT < 6 U/L (13-61)
[2023-12-30 09:49] LABS: BILIRUBIN,TOTAL 0.3 mg/dL (0.2-1); TOT PROT 6.4 g/dl (6.4-8.2)
[2023-12-30 09:50] LABS: ALK PHOS 84 U/L (45-117)
[2023-12-30 09:54] LABS: ANISOCYTOSIS 3+; MACROCYTOSIS 0
[2023-12-30 10:08] VITALS: RESP 18
[2023-12-31] MEDS: AMOX TR/POT CLAV 875MG/125MG TABLETS (FP) PO SCH (08:40)
[2023-12-31 09:56] LABS: BASO % 0.7 % (0-2.0); EOS % 2.9 % (0-4.5); HEMATOCRIT 28.9 % (32.4-45.2); HEMOGLOBIN 9.3 GM/dL (10.7-15.3); LYMPH % 26.7 % (8-40); MCH 24.6 pg (25.7-33.7); MEAN CELL VOLUME 76.8 fl (80-96); MEAN PLT VOLUME 6.5 fl (7.5-11.1); MONO % 7.4 % (3.8-10.2); NEUT % 62.3 % (42.8-82.8); PLATELET COUNT 766 10^3/uL (134-434); RBC 3.77 M/mm3 (3.60-5.2); RDW 20.6 % (11.6-15.6); WHITE BLOOD COUNT 6.8 K/mm3 (4.0-10.0)
[2023-12-31 10:06] LABS: CHLORIDE 108 mmol/L (98-107); POTASSIUM 4.1 mmol/L (3.5-5.1); SODIUM 138 mmol/L (136-145)
[2023-12-31 10:08] LABS: CALCIUM 9.1 mg/dL (8.5-10.1)
[2023-12-31 10:09] LABS: ALBUMIN 2.3 g/dl (3.4-5.0); ANION GAP 2 mmol/L (4-13); BLOOD UREA NITROGEN 9.5 mg/dL (7-18); CO2 28 mmol/L (21-32); GLUCOSE,RANDOM 107 mg/dL (74-106)
[2023-12-31 10:12] LABS: CREATININE 0.6 mg/dL (0.55-1.3); SGOT/AST 10 U/L (15-37); SGPT/ALT < 6 U/L (13-61)
[2023-12-31 10:13] LABS: TOT PROT 6.3 g/dl (6.4-8.2)
[2023-12-31 10:14] LABS: BILIRUBIN,TOTAL 0.3 mg/dL (0.2-1)
[2023-12-31 10:15] LABS: ALK PHOS 83 U/L (45-117)
[2023-12-31 14:49] VITALS: BP 126/51; PULSE 70; TEMP 98
== END 2023-12-31 16:30 | disposition home health service (06) | DRG 637 ==
LOC: JER 13:19 → JERBED 19:54 → J5S 20:50
PROVIDERS: ADMIT Student in an Organized Health Care Education/Training Program; ATTEND Nurse Practitioner
DX: E11.69 Type 2 diabetes mellitus with other specified complication (principal); L89.154 Pressure ulcer of sacral region, stage 4; N39.0 Urinary tract infection, site not specified; C18.9 Malignant neoplasm of colon, unspecified; M46.28 Osteomyelitis of vertebra, sacral and sacrococcygeal region; M86.60 Other chronic osteomyelitis, unspecified site; M06.9 Rheumatoid arthritis, unspecified; F03.90 Unspecified dementia, unspecified severity, without behavioral disturbance, psychotic disturbance, mood disturbance, and anxiety; I10 Essential (primary) hypertension; D50.9 Iron deficiency anemia, unspecified; E78.5 Hyperlipidemia, unspecified; G20.A1 Parkinson's disease without dyskinesia, without mention of fluctuations; D47.3 Essential (hemorrhagic) thrombocythemia; R53.2 Functional quadriplegia
CPT/HCPCS: 0241U-QW; 36415; 70450-TC; 71045-TC-FY; 72125-TC; 72131-TC; 72170-TC-FY; 74176-TC; 74230-TC-FY; 80053; 81003; 82272; 82550; 82553; 82803; 82962; 83605; 83735; 84100; 84484; 85025; 85610; 85730; 86140; 86850; 86900; 86901; 87040; 87077; 87086; 92611-GN; 93005; 93010; 97116-GP; 97161-GP; 99285-25

== ENCOUNTER 2024-01-28 17:27 | Observation (INO) | payer OTHER ==
[2024-01-28] MEDS ORDERED: ALBUTEROL SO4 2.5/IPRATROPIUM 0.5 INH SOL 3 ML VIAL.NEB. NEB ONE (18:49)
[2024-01-28] MEDS: ALBUTEROL SO4 2.5/IPRATROPIUM 0.5 INH SOL 3 ML VIAL.NEB. NEB ONE (19:01)
[2024-01-28 19:15] LABS: VENOUS BASE EXCESS -1.5 mmol/L (-2-2); VENOUS O2 SATURATION 59.2 % (70-80); VENOUS PCO2 49.9 mmHg (38-52); VENOUS PH 7.316 (7.310-7.410)
[2024-01-28 19:25] LABS: BASO % 0.4 % (0-2.0); EOS % 0.4 % (0-4.5); HEMATOCRIT 29.7 % (32.4-45.2); LYMPH % 7.4 % (8-40); MCH 23.3 pg (25.7-33.7); MCHC 30.3 g/dl (32.0-36.0); MEAN CELL VOLUME 76.8 fl (80-96); MEAN PLT VOLUME 7.1 fl (7.5-11.1); NEUT % 84.8 % (42.8-82.8); PLATELET COUNT 541 10^3/uL (134-434); RBC 3.87 M/mm3 (3.60-5.2); RDW 22.5 % (11.6-15.6); WHITE BLOOD COUNT 12.7 K/mm3 (4.0-10.0)
[2024-01-28] MEDS ORDERED: methylPREDNISolone NA SUCC 125 MG/2 ML VIAL ONE (19:33)
[2024-01-28 19:35] LABS: POTASSIUM 4.3 mmol/L (3.5-5.1)
[2024-01-28 19:37] LABS: ALBUMIN 2.4 g/dl (3.4-5.0); BLOOD UREA NITROGEN 27.3 mg/dL (7-18); CALCIUM 9.1 mg/dL (8.5-10.1)
[2024-01-28 19:40] LABS: CREATININE 0.6 mg/dL (0.55-1.3)
[2024-01-28 19:42] LABS: BILIRUBIN,TOTAL 0.3 mg/dL (0.2-1); TOT PROT 6.7 g/dl (6.4-8.2)
[2024-01-28 19:45] LABS: N-TERMINAL BNP 289.2 pg/ml (5-450)
[2024-01-28] MEDS: methylPREDNISolone NA SUCC 125 MG/2 ML VIAL IVPUSH ONE (19:50)
[2024-01-28 19:52] LABS: INR 1.12 (0.83-1.09); PROTHROMBIN TIME (PATIENT) 12.6 SEC (9.7-13.0)
[2024-01-28 19:55] LABS: ACTIVATED PTT 36.9 SECONDS (25.2-36.5)
[2024-01-28 20:05] LABS: ANISOCYTOSIS 2+; MACROCYTOSIS 1+; OVALOCYTE 1+
[2024-01-28 20:06] LABS: PLATELET ESTIMATE INCREASED
[2024-01-29] MEDS ORDERED: CEFTRIAXONE 1 GM/50 ML BAG ONE (00:43)
[2024-01-29] MEDS: CEFTRIAXONE 1,000 MG in DEXTROSE 5%-WATER - 50 ML IVPB ONE (00:48)
[2024-01-29] MEDS ORDERED: AZITHROMYCIN IVPB 500 MG/250 ML BAG IVPB ONE (01:50)
[2024-01-29] MEDS: AZITHROMYCIN IVPB 500 MG in DEXTROSE 5%-WATER - 250 ML IVPB ONE (01:57)
[2024-01-29 05:35] VITALS: BMI 18.8
[2024-01-29] MEDS: INSULIN ASPART SLIDING SCALE (NOVOLOG) 1 VIAL SQ SCH (06:31)
[2024-01-29] MEDS: ALBUTEROL SO4 2.5/IPRATROPIUM 0.5 INH SOL 3 ML VIAL.NEB. NEB SCH (08:15)
[2024-01-29] MEDS: NEBIVOLOL 5 MG TABLET (FP) PO SCH (09:31)
[2024-01-29] MEDS: methylPREDNISolone NA SUCC 40 MG/1 ML VIAL IVPUSH SCH (09:32)
[2024-01-29] MEDS: ENOXAPARIN NA (PORCINE) 40 MG/0.4 ML DISP.SYRIN SQ SCH (09:33)
[2024-01-29 09:38] LABS: HEMATOCRIT 28.2 % (32.4-45.2); HEMOGLOBIN 8.6 GM/dL (10.7-15.3); MCH 23.2 pg (25.7-33.7); MCHC 30.6 g/dl (32.0-36.0); MEAN PLT VOLUME 7.4 fl (7.5-11.1); PLATELET COUNT 461 10^3/uL (134-434); RBC 3.71 M/mm3 (3.60-5.2); RDW 21.9 % (11.6-15.6); WHITE BLOOD COUNT 8.8 K/mm3 (4.0-10.0)
[2024-01-29 09:44] LABS: POTASSIUM 3.8 mmol/L (3.5-5.1)
[2024-01-29 09:59] LABS: BILIRUBIN,TOTAL 0.1 mg/dL (0.2-1); TOT PROT 6.5 g/dl (6.4-8.2)
[2024-01-29] MEDS ORDERED: BUDESONIDE/FORMETEROL FUMARATE 160/4.5 mcg INHALER IH SCH (10:00)
[2024-01-29] MEDS ORDERED: ENOXAPARIN NA (PORCINE) 60 MG/0.6 ML DISP.SYRIN SQ SCH (10:00)
[2024-01-29 10:01] LABS: BLOOD UREA NITROGEN 25.7 mg/dL (7-18); CREATININE 0.5 mg/dL (0.55-1.3)
[2024-01-29 10:02] LABS: ALBUMIN 2.2 g/dl (3.4-5.0)
[2024-01-29 10:04] LABS: CALCIUM 9.1 mg/dL (8.5-10.1); MAGNESIUM 2.1 mg/dL (1.8-2.4)
[2024-01-29 10:44] LABS: ANISOCYTOSIS 0; MACROCYTOSIS 0
[2024-01-29] MEDS ORDERED: oxyCODONE HCL 5 MG TABLET PO PRN (14:23)
[2024-01-29] MEDS ORDERED: BISACODYL 5 MG TABLET.DR (FP) PO PRN ×2 (14:23→14:35)
[2024-01-29] MEDS ORDERED: ACETAMINOPHEN 500 MG TABLET (FP) PO PRN (14:23)
[2024-01-29] MEDS: oxyCODONE HCL 5 MG TABLET PO SCH (15:14)
[2024-01-29] MEDS: MIRTAZAPINE 15 MG TABLET (FP) PO SCH (21:26)
[2024-01-29] MEDS: ATORVASTATIN CA 10 MG TABLET (FP) PO SCH (21:26)
[2024-01-29] MEDS: QUEtiapine FUMARATE 25 MG TABLET PO SCH (21:27)
[2024-01-29] MEDS: LOSARTAN POTASSIUM 25 MG TABLET PO SCH (21:28)
[2024-01-29] MEDS: ENTACAPONE 200 MG TABLET PO SCH (22:36)
[2024-01-29] MEDS: CARBIDOPA/LEVODOPA 25/250 TABLET (FP) PO SCH (22:36)
[2024-01-30] MEDS: CEFTRIAXONE 1 GM in DEXTROSE 5%-WATER - 50 ML IVPB SCH (01:36)
[2024-01-30] MEDS: AZITHROMYCIN IVPB 500 MG/250 ML BAG IVPB SCH (02:53)
[2024-01-30 08:50] VITALS: BP 152/61; PULSE 68; RESP 16; TEMP 97.6
[2024-01-30] MEDS ORDERED: DULoxetine HCL 30 MG CAPSULE.DR PO ONE (09:36)
[2024-01-30] MEDS: ISOSORBIDE MONONITRATE 30 MG TAB.SR.24H (FP) PO SCH (09:46)
[2024-01-30] MEDS: FAMOTIDINE 20 MG TABLET PO SCH (09:47)
[2024-01-30] MEDS: morphine SO4 SUSTAINED ACTING 15 MG TABLET.SA PO SCH (09:51)
[2024-01-30] MEDS: DULoxetine HCL 60 MG CAPSULE.DR PO SCH (09:52)
[2024-01-30] MEDS ORDERED: AMINO ACIDS/PROTEIN HYDROLYS 30 ML LIQUID.PKT PO SCH (17:30)
[2024-01-31] MEDS ORDERED: MULTIVITAMINS THER W-MINERALS COMBO TABLET (FP) PO SCH (10:00)
== END 2024-01-30 11:51 | disposition home or self-care (01) ==
LOC: JER 17:27 → JERBED 01-29 01:27 → UNDOADMOB 01-29 01:27 → INTOOBSV 01-29 01:27 → JERBED 01-29 02:04 → J6S 01-29 04:43
PROVIDERS: ADMIT Internal Medicine; ATTEND Internal Medicine
PROC: 3E0F7GC Introduction of Other Therapeutic Substance into Respiratory Tract, Via Natural or Artificial Opening (ICD-10-PCS; principal; 2024-01-29)
PROC: 3E03329 Introduction of Other Anti-infective into Peripheral Vein, Percutaneous Approach (ICD-10-PCS; 2024-01-29)
PROC: 3E023GC Introduction of Other Therapeutic Substance into Muscle, Percutaneous Approach (ICD-10-PCS; 2024-01-29)
PROC: 3E0337Z Introduction of Electrolytic and Water Balance Substance into Peripheral Vein, Percutaneous Approach (ICD-10-PCS; 2024-01-29)
DX: F03.90 Unspecified dementia, unspecified severity, without behavioral disturbance, psychotic disturbance, mood disturbance, and anxiety (principal); I10 Essential (primary) hypertension; E11.9 Type 2 diabetes mellitus without complications; G20.A1 Parkinson's disease without dyskinesia, without mention of fluctuations; Z87.440 Personal history of urinary (tract) infections; Z85.038 Personal history of other malignant neoplasm of large intestine; D64.89 Other specified anemias
CPT/HCPCS: 0241U-QW; 36415; 71045-TC-FY; 71275-TC; 80053; 82272; 82728; 82803; 82962; 83540; 83550; 83735; 83880; 84100; 84466; 84484; 85025; 85045; 85379; 85610; 85730; 87899; 93005; 93010; 94640; 96361; 96365; 96367; 96368; 96372; 96376; 99285-25; G0378; Q9967

== ENCOUNTER 2024-02-26 14:11 | Inpatient (IN) | payer OTHER ==
[2024-02-26 16:09] LABS: VENOUS BASE EXCESS 3.7 mmol/L (-2-2); VENOUS O2 SATURATION 46.6 % (70-80); VENOUS PCO2 63.1 mmHg (38-52); VENOUS PH 7.311 (7.310-7.410)
[2024-02-26 16:11] LABS: BASO % 0.1 % (0-2.0); EOS % 0.4 % (0-4.5); HEMATOCRIT 28.9 % (32.4-45.2); HEMOGLOBIN 8.9 GM/dL (10.7-15.3); LYMPH % 3.2 % (8-40); MCH 23.1 pg (25.7-33.7); MCHC 30.9 g/dl (32.0-36.0); MEAN CELL VOLUME 74.8 fl (80-96); MEAN PLT VOLUME 7.2 fl (7.5-11.1); MONO % 3.1 % (3.8-10.2); NEUT % 93.2 % (42.8-82.8); PLATELET COUNT 534 10^3/uL (134-434); RBC 3.86 M/mm3 (3.60-5.2); RDW 20.9 % (11.6-15.6); WHITE BLOOD COUNT 14.5 K/mm3 (4.0-10.0)
[2024-02-26] MEDS: SODIUM CHLORIDE 0.9% 500 ML INFUS.BAG IV ONE (16:12)
[2024-02-26 16:20] LABS: INR 1.01 (0.83-1.09); PROTHROMBIN TIME (PATIENT) 11.4 SEC (9.7-13.0)
[2024-02-26 16:23] LABS: ACTIVATED PTT 21.6 SECONDS (25.2-36.5)
[2024-02-26 16:27] LABS: POTASSIUM 4.5 mmol/L (3.5-5.1)
[2024-02-26 16:29] LABS: ALBUMIN 2.5 g/dl (3.4-5.0); CALCIUM 9.3 mg/dL (8.5-10.1)
[2024-02-26 16:30] LABS: BLOOD UREA NITROGEN 11.3 mg/dL (7-18); MAGNESIUM 2.2 mg/dL (1.8-2.4)
[2024-02-26 16:32] LABS: CREATININE 0.5 mg/dL (0.55-1.3)
[2024-02-26 16:33] LABS: PHOSPHOROUS 4.7 mg/dL (2.5-4.9)
[2024-02-26 16:34] LABS: BILIRUBIN,TOTAL 0.2 mg/dL (0.2-1); TOT PROT 6.8 g/dl (6.4-8.2)
[2024-02-26 17:00] LABS: ANISOCYTOSIS 2+; MACROCYTOSIS 1+; OVALOCYTE 1+
[2024-02-26] MEDS ORDERED: PIPERACILLIN/TAZOB 3.375 GM 3.375 GM/50 ML BAG IVPB ONE (19:44)
[2024-02-26] MEDS: PIPERACILLIN/TAZOB 3.375 GM 3.375 GM in DEXTROSE 5%-WATER - 50 ML IVPB ONE (19:53)
[2024-02-26] MEDS ORDERED: VANCOMYCIN 1 GRAM (PRE-DOCKED) 1,000 MG/250 ML BAG IVPB ONE (20:38)
[2024-02-26] MEDS: VANCOMYCIN 1,000 MG in DEXTROSE 5%-WATER - 250 ML IVPB ONE (20:45)
[2024-02-26] MEDS ORDERED: BISACODYL 5 MG TABLET.DR (FP) PO PRN ×2 (21:29→22:12)
[2024-02-26] MEDS ORDERED: oxyCODONE HCL 5 MG TABLET PO PRN ×2 (21:31)
[2024-02-26 22:50] LABS: EPI CELLS 19 /uL (0-25.1); HYALINE CASTS 9 /uL (0-3.1); URINE APPEARANCE CLOUDY; URINE BACTERIA 5 /uL (0-1359); URINE BILIRUBIN NEGATIVE (NEGATIVE); URINE COLOR YELLOW; URINE GLUCOSE (UA) NEGATIVE (NEGATIVE); URINE KETONE NEGATIVE (NEGATIVE); URINE LEUK ESTERASE 3+ (NEGATIVE); URINE NITRITE NEGATIVE (NEGATIVE); URINE PROTEIN NEGATIVE (NEGATIVE); URINE UROBILINOGEN 0.2 mg/dL (0.2-1.0); URINE WBC 687 /uL (0-25.8)
[2024-02-26] MEDS: INSULIN ASPART SLIDING SCALE (NOVOLOG) 1 VIAL SQ SCH (22:51)
[2024-02-26] MEDS: LACTATED RINGERS SOLUTION 1,000 ML/1,000 ML INFUS.BAG IV SCH (23:04)
[2024-02-26 23:14] LABS: URINE CRYSTALS NONE SEEN /hpf; URINE RBC 267.4 /uL (0-23.9); YEAST PRESENT (NEGATIVE)
[2024-02-26] MEDS: morphine SO4 SUSTAINED ACTING 15 MG TABLET.SA PO SCH (23:17)
[2024-02-26] MEDS: ATORVASTATIN CA 10 MG TABLET (FP) PO SCH (23:17)
[2024-02-26] MEDS: CARBIDOPA/LEVODOPA 25/250 TABLET (FP) PO SCH (23:18)
[2024-02-26] MEDS: QUEtiapine FUMARATE 25 MG TABLET PO SCH (23:18)
[2024-02-26] MEDS: ENTACAPONE 200 MG TABLET PO SCH (23:18)
[2024-02-26] MEDS: MIRTAZAPINE 15 MG TABLET (FP) PO SCH (23:18)
[2024-02-26] MEDS ORDERED: ENOXAPARIN NA (PORCINE) 40 MG/0.4 ML DISP.SYRIN SQ ONE (23:21)
[2024-02-26] MEDS: ENOXAPARIN NA (PORCINE) 40 MG/0.4 ML DISP.SYRIN SQ SCH (23:24)
[2024-02-27] MEDS: morphine SULFATE 4 MG/ML VIAL IVPUSH ONE (00:32)
[2024-02-27] MEDS: PIPERACILLIN/TAZOB 2.25 GM 2.25 GM in DEXTROSE 5%-WATER - 50 ML IVPB SCH ×3 (02:41→21:00)
[2024-02-27] MEDS ORDERED: PIPERACILLIN/TAZOB 2.25 GM 2.25 GM in DEXTROSE 5%-WATER - 50 ML IVPB SCH (03:00)
[2024-02-27] MEDS: NEBIVOLOL 5 MG TABLET (FP) PO SCH (06:54)
[2024-02-27] MEDS: ENTACAPONE 200 MG TABLET PO SCH (06:55)
[2024-02-27 09:05] LABS: BASO % 0.5 % (0-2.0); EOS % 1.2 % (0-4.5); HEMATOCRIT 24.3 % (32.4-45.2); HEMOGLOBIN 7.5 GM/dL (10.7-15.3); LYMPH % 10.2 % (8-40); MCH 23.1 pg (25.7-33.7); MCHC 30.9 g/dl (32.0-36.0); MEAN CELL VOLUME 74.5 fl (80-96); MEAN PLT VOLUME 6.6 fl (7.5-11.1); MONO % 5.9 % (3.8-10.2); NEUT % 82.2 % (42.8-82.8); PLATELET COUNT 536 10^3/uL (134-434); RBC 3.26 M/mm3 (3.60-5.2); RDW 20.6 % (11.6-15.6); WHITE BLOOD COUNT 9.8 K/mm3 (4.0-10.0)
[2024-02-27 09:31] LABS: POTASSIUM 3.9 mmol/L (3.5-5.1)
[2024-02-27 09:34] LABS: CALCIUM 8.7 mg/dL (8.5-10.1)
[2024-02-27 09:35] LABS: ALBUMIN 2.1 g/dl (3.4-5.0); BLOOD UREA NITROGEN 9.8 mg/dL (7-18)
[2024-02-27 09:38] LABS: CREATININE 0.3 mg/dL (0.55-1.3); PHOSPHOROUS 3.6 mg/dL (2.5-4.9); TOT PROT 5.7 g/dl (6.4-8.2)
[2024-02-27 09:39] LABS: BILIRUBIN,TOTAL 0.4 mg/dL (0.2-1)
[2024-02-27] MEDS ORDERED: DULoxetine HCL 30 MG CAPSULE.DR PO ONE (09:47)
[2024-02-27] MEDS: FAMOTIDINE 20 MG TABLET PO SCH (09:48)
[2024-02-27] MEDS: ISOSORBIDE MONONITRATE 30 MG TAB.SR.24H (FP) PO SCH (09:51)
[2024-02-27] MEDS: DULoxetine HCL 30 MG CAPSULE.DR PO SCH (09:55)
[2024-02-27] MEDS ORDERED: DULoxetine HCL 60 MG CAPSULE.DR PO SCH (10:00)
[2024-02-27] MEDS ORDERED: POLYETHYLENE GLYCOL (HEALTHYLAX) 3350 17 GM PACKET PO PRN (12:42)
[2024-02-27] MEDS ORDERED: VANCOMYCIN/WATER FOR INJ (PEG) 750 MG/150 ML BAG IVPB SCH (21:00)
[2024-02-27] MEDS ORDERED: VANCOMYCIN 750 MG in DEXTROSE 5%-WATER - 150 ML IVPB SCH (21:00)
[2024-02-27] MEDS: LOSARTAN POTASSIUM 25 MG TABLET PO SCH (22:09)
[2024-02-28 11:00] LABS: BASO % 1.1 % (0-2.0); EOS % 2.2 % (0-4.5); HEMATOCRIT 22.8 % (32.4-45.2); HEMOGLOBIN 7.2 GM/dL (10.7-15.3); LYMPH % 14.5 % (8-40); MCH 23.8 pg (25.7-33.7); MCHC 31.7 g/dl (32.0-36.0); MEAN CELL VOLUME 74.9 fl (80-96); MONO % 8.2 % (3.8-10.2); PLATELET COUNT 489 10^3/uL (134-434); RBC 3.04 M/mm3 (3.60-5.2); RDW 20.3 % (11.6-15.6); WHITE BLOOD COUNT 6.7 K/mm3 (4.0-10.0)
[2024-02-28 11:53] LABS: ALBUMIN 2.1 g/dl (3.4-5.0); POTASSIUM 3.8 mmol/L (3.5-5.1)
[2024-02-28 11:55] LABS: BLOOD UREA NITROGEN 9.3 mg/dL (7-18); CALCIUM 8.8 mg/dL (8.5-10.1); MAGNESIUM 2.2 mg/dL (1.8-2.4)
[2024-02-28 11:56] LABS: BILIRUBIN,DIRECT 0.1 mg/dL (0.0-0.2)
[2024-02-28 11:57] LABS: BILIRUBIN,TOTAL 0.5 mg/dL (0.2-1)
[2024-02-28 11:58] LABS: CREATININE 0.4 mg/dL (0.55-1.3); TOT PROT 5.6 g/dl (6.4-8.2)
[2024-02-28 11:59] LABS: PHOSPHOROUS 3.2 mg/dL (2.5-4.9)
[2024-02-28 23:49] VITALS: BMI 18.1
[2024-02-29] MEDS: VANCOMYCIN/WATER FOR INJ (PEG) 1,000 MG/200 ML BAG IVPB ONE (08:49)
[2024-02-29 10:28] LABS: BASO % 1.1 % (0-2.0); EOS % 3.2 % (0-4.5); HEMATOCRIT 25.8 % (32.4-45.2); HEMOGLOBIN 7.9 GM/dL (10.7-15.3); LYMPH % 23.8 % (8-40); MCH 23.3 pg (25.7-33.7); MCHC 30.5 g/dl (32.0-36.0); MEAN CELL VOLUME 76.4 fl (80-96); MEAN PLT VOLUME 6.8 fl (7.5-11.1); MONO % 7.9 % (3.8-10.2); PLATELET COUNT 570 10^3/uL (134-434); RBC 3.38 M/mm3 (3.60-5.2); RDW 21.1 % (11.6-15.6); RETICULOCYTES 1.19 % (0.5-1.5)
[2024-02-29 10:41] LABS: POTASSIUM 3.8 mmol/L (3.5-5.1)
[2024-02-29 10:46] LABS: CALCIUM 8.9 mg/dL (8.5-10.1)
[2024-02-29 10:47] LABS: ALBUMIN 2.3 g/dl (3.4-5.0); MAGNESIUM 2.1 mg/dL (1.8-2.4)
[2024-02-29 10:49] LABS: CREATININE 0.5 mg/dL (0.55-1.3); PHOSPHOROUS 3.1 mg/dL (2.5-4.9)
[2024-02-29 10:51] LABS: BILIRUBIN,TOTAL 0.4 mg/dL (0.2-1)
[2024-02-29 14:30] VITALS: RESP 18
[2024-02-29] MEDS: DAPTOMYCIN 250 MG in SODIUM CHLORIDE 50 ML IVPB SCH (15:08)
[2024-03-01 08:53] LABS: BASO % 0.7 % (0-2.0); EOS % 1.7 % (0-4.5); HEMATOCRIT 24.2 % (32.4-45.2); HEMOGLOBIN 7.4 GM/dL (10.7-15.3); LYMPH % 23.3 % (8-40); MCH 22.6 pg (25.7-33.7); MCHC 30.5 g/dl (32.0-36.0); MEAN CELL VOLUME 73.9 fl (80-96); MEAN PLT VOLUME 6.6 fl (7.5-11.1); MONO % 10.7 % (3.8-10.2); NEUT % 63.6 % (42.8-82.8); PLATELET COUNT 654 10^3/uL (134-434); RBC 3.27 M/mm3 (3.60-5.2); RDW 21.2 % (11.6-15.6); WHITE BLOOD COUNT 5.1 K/mm3 (4.0-10.0)
[2024-03-01 09:11] LABS: POTASSIUM 3.7 mmol/L (3.5-5.1)
[2024-03-01 09:18] LABS: CALCIUM 8.5 mg/dL (8.5-10.1)
[2024-03-01 09:22] LABS: CREATININE 0.4 mg/dL (0.55-1.3)
[2024-03-01 09:48] LABS: ANISOCYTOSIS 2+; MACROCYTOSIS 0
[2024-03-02 08:38] LABS: BASO % 1.4 % (0-2.0); EOS % 2.7 % (0-4.5); HEMATOCRIT 27.4 % (32.4-45.2); HEMOGLOBIN 8.5 GM/dL (10.7-15.3); LYMPH % 34.8 % (8-40); MCH 23.4 pg (25.7-33.7); MCHC 30.9 g/dl (32.0-36.0); MEAN CELL VOLUME 75.7 fl (80-96); MEAN PLT VOLUME 7.1 fl (7.5-11.1); MONO % 12.6 % (3.8-10.2); NEUT % 48.5 % (42.8-82.8); PLATELET COUNT 652 10^3/uL (134-434); RBC 3.61 M/mm3 (3.60-5.2); RDW 21.1 % (11.6-15.6); WHITE BLOOD COUNT 5.5 K/mm3 (4.0-10.0)
[2024-03-02 09:00] LABS: ALBUMIN 2.2 g/dl (3.4-5.0); CALCIUM 8.9 mg/dL (8.5-10.1)
[2024-03-02 09:01] LABS: BLOOD UREA NITROGEN 9.2 mg/dL (7-18)
[2024-03-02 09:03] LABS: CREATININE 0.4 mg/dL (0.55-1.3)
[2024-03-02 09:05] LABS: BILIRUBIN,TOTAL 0.2 mg/dL (0.2-1); TOT PROT 5.9 g/dl (6.4-8.2)
[2024-03-02] MEDS: DOXYCYCLINE INJECTION 100 MG in DEXTROSE 5%-WATER 100 ML IVPB SCH (09:23)
[2024-03-02] MEDS: DULoxetine HCL 30 MG CAPSULE.DR PO SCH (10:20)
[2024-03-02] MEDS: SENNOSIDES 8.6MG TABLET (FP) PO PRN (21:34)
[2024-03-03] MEDS: AMINO ACIDS/PROTEIN HYDROLYS 30 ML LIQUID.PKT PO SCH (08:39)
[2024-03-03 09:02] LABS: HEMATOCRIT 27.8 % (32.4-45.2); HEMOGLOBIN 8.6 GM/dL (10.7-15.3); MCH 23.1 pg (25.7-33.7); MCHC 30.8 g/dl (32.0-36.0); MEAN PLT VOLUME 6.9 fl (7.5-11.1); PLATELET COUNT 695 10^3/uL (134-434); WHITE BLOOD COUNT 6.6 K/mm3 (4.0-10.0)
[2024-03-03] MEDS: MULTIVITAMINS (DAILY MVI) TABLET (FP) PO SCH (09:08)
[2024-03-03] MEDS: ZINC SULFATE 220 MG CAPSULE (FP) PO SCH (09:08)
[2024-03-03] MEDS: ASCORBIC ACID 500 MG TABLET (FP) PO SCH (09:09)
[2024-03-03 09:16] VITALS: BP 145/54; PULSE 63; TEMP 98.8
== END 2024-03-03 11:55 | disposition home or self-care (01) | DRG 871 ==
LOC: JER 14:11 → JERBED 21:57 → J6S 02-27 01:46
PROVIDERS: ADMIT Internal Medicine; ATTEND Internal Medicine
DX: A41.9 Sepsis, unspecified organism (principal); E43 Unspecified severe protein-calorie malnutrition; J96.01 Acute respiratory failure with hypoxia; L89.154 Pressure ulcer of sacral region, stage 4; J69.0 Pneumonitis due to inhalation of food and vomit; G92.8 Other toxic encephalopathy; Z68.1 Body mass index [BMI] 19.9 or less, adult; R64 Cachexia; I69.354 Hemiplegia and hemiparesis following cerebral infarction affecting left non-dominant side; G20.A1 Parkinson's disease without dyskinesia, without mention of fluctuations; F02.80 Dementia in other diseases classified elsewhere, unspecified severity, without behavioral disturbance, psychotic disturbance, mood disturbance, and anxiety; D50.9 Iron deficiency anemia, unspecified; K59.03 Drug induced constipation; E78.5 Hyperlipidemia, unspecified
CPT/HCPCS: 0241U-QW; 36415; 70450-TC; 71045-TC-FY; 71250-TC; 74176-TC; 74230-TC-FY; 80048; 80053; 80076; 81003; 82550; 82607; 82728; 82803; 82962; 83540; 83550; 83605; 83690; 83735; 84100; 84443; 84484; 85025; 85027; 85045; 85610; 85730; 86850; 86900; 86901; 87040; 87070; 87077; 87086; 87186; 87205; 92611-GN; 93005; 93010; 97161-GP; 99285-25; G0480; J0878

== ENCOUNTER 2024-03-03 14:18 | Inpatient (IN) | payer OTHER ==
[2024-03-03 14:40] LABS: HEMATOCRIT 25.7 % (32.4-45.2); HEMOGLOBIN 7.6 GM/dL (10.7-15.3); MCHC 29.5 g/dl (32.0-36.0); MEAN CELL VOLUME 77.9 fl (80-96); MEAN PLT VOLUME 6.8 fl (7.5-11.1); PLATELET COUNT 753 10^3/uL (134-434); RDW 21.6 % (11.6-15.6)
[2024-03-03] MEDS ORDERED: FENTANYL CITRATE/PF 50 MCG/ML VIAL ONE (14:50)
[2024-03-03 15:05] LABS: ANISOCYTOSIS 2+; MACROCYTOSIS 0
[2024-03-03 15:12] LABS: POTASSIUM 5.1 mmol/L (3.5-5.1)
[2024-03-03 15:14] LABS: CALCIUM 8.1 mg/dL (8.5-10.1)
[2024-03-03 15:15] LABS: ALBUMIN 2.1 g/dl (3.4-5.0); BLOOD UREA NITROGEN 13.5 mg/dL (7-18)
[2024-03-03 15:16] LABS: MAGNESIUM 2.1 mg/dL (1.8-2.4)
[2024-03-03 15:17] LABS: CREATININE 0.7 mg/dL (0.55-1.3)
[2024-03-03 15:18] LABS: PHOSPHOROUS 5.6 mg/dL (2.5-4.9)
[2024-03-03 15:19] LABS: BILIRUBIN,TOTAL 0.2 mg/dL (0.2-1); TOT PROT 5.7 g/dl (6.4-8.2)
[2024-03-03 15:23] LABS: N-TERMINAL BNP 1476.7 pg/ml (5-450)
[2024-03-03 15:38] LABS: INR 1.1 (0.83-1.09); PROTHROMBIN TIME (PATIENT) 12.4 SEC (9.7-13.0)
[2024-03-03 15:39] LABS: VENOUS BASE EXCESS -10.7 mmol/L (-2-2); VENOUS O2 SATURATION 85.3 % (70-80); VENOUS PCO2 52.9 mmHg (38-52)
[2024-03-03 15:40] LABS: ACTIVATED PTT 32.8 SECONDS (25.2-36.5)
[2024-03-03 15:45] LABS: VENOUS PH 7.144 (7.310-7.410)
[2024-03-03 16:07] LABS: LACTIC ACID 6.6 mmol/L (0.4-2.0)
[2024-03-03] MEDS: SODIUM CHLORIDE 0.9% 500 ML INFUS.BAG IV ONE (16:17)
[2024-03-03] MEDS: PROPOFOL 1,000,000 MCG/100 ML VIAL IVPB SCH (16:18)
[2024-03-03] MEDS: FENTANYL NS IVPB 500 MCG/100 ML BAG IVPB SCH (16:19)
[2024-03-03] MEDS ORDERED: PIPERACILLIN/TAZOB 4.5 GM 4.5 GM/100 ML BAG IVPB ONE (16:23)
[2024-03-03 16:25] LABS: EPI CELLS 20 /uL (0-25.1); HYALINE CASTS 2 /uL (0-3.1); URINE APPEARANCE CLOUDY; URINE BACTERIA 163 /uL (0-1359); URINE BILIRUBIN NEGATIVE (NEGATIVE); URINE COLOR YELLOW; URINE GLUCOSE (UA) NEGATIVE (NEGATIVE); URINE KETONE NEGATIVE (NEGATIVE); URINE LEUK ESTERASE NEGATIVE (NEGATIVE); URINE NITRITE NEGATIVE (NEGATIVE); URINE PROTEIN 2+ (NEGATIVE); URINE RBC 2842 /uL (0-23.9); URINE UROBILINOGEN 0.2 mg/dL (0.2-1.0)
[2024-03-03] MEDS ORDERED: VANCOMYCIN/WATER 1250 MG 1,250 MG/250 ML BAG IVPB ONE (16:44)
[2024-03-03] MEDS: PIPERACILLIN/TAZOB 4.5 GM 4.5 GM in DEXTROSE 5%-WATER 100 ML IVPB ONE (16:53)
[2024-03-03] MEDS: VANCOMYCIN/WATER 1250 MG 1,250 MG/250 ML BAG IVPB ONE (16:53)
[2024-03-03] MEDS ORDERED: VANCOMYCIN 1,000 MG in DEXTROSE 5%-WATER - 250 ML IVPB SCH (18:45)
[2024-03-03] MEDS: LACTATED RINGERS SOLUTION 1,000 ML/1,000 ML INFUS.BAG IV SCH (19:40)
[2024-03-03] MEDS: NOREPINEPHRINE BITARTRATE/D5W 8 MG/250 ML BAG IVPB SCH (20:25)
[2024-03-03 21:12] LABS: POTASSIUM 3.4 mmol/L (3.5-5.1)
[2024-03-03 21:13] LABS: CALCIUM 7.7 mg/dL (8.5-10.1)
[2024-03-03 21:14] LABS: BLOOD UREA NITROGEN 17.1 mg/dL (7-18); MAGNESIUM 1.9 mg/dL (1.8-2.4)
[2024-03-03 21:17] LABS: CREATININE 0.7 mg/dL (0.55-1.3); PHOSPHOROUS 3.4 mg/dL (2.5-4.9)
[2024-03-03 21:33] LABS: ARTERIAL BLD GAS O2 SATURATION 99.5 % (95-98); ARTERIAL BLOOD GAS BASE EXCESS -4.7 mmol/L (-2-2); ARTERIAL BLOOD GAS PO2 247.8 mmHg (80-100); ARTERIAL BLOOD GAS pH 7.312 (7.350-7.450)
[2024-03-03 21:40] LABS: VENT MODE A/C; VENT RATE 16
[2024-03-03 22:03] LABS: LACTIC ACID 2.8 mmol/L (0.4-2.0)
[2024-03-03 22:33] LABS: HEMATOCRIT 26.1 % (32.4-45.2); HEMOGLOBIN 7.7 GM/dL (10.7-15.3); MCH 22.3 pg (25.7-33.7); MCHC 29.4 g/dl (32.0-36.0); MEAN CELL VOLUME 75.8 fl (80-96); PLATELET COUNT 639 10^3/uL (134-434); RBC 3.44 M/mm3 (3.60-5.2); RDW 21.2 % (11.6-15.6)
[2024-03-03 22:42] LABS: URINE WBC 288.6 /uL (0-25.8); YEAST Present (NEGATIVE)
[2024-03-03] MEDS: MUPIROCIN 2% TOPICAL OINTMENT FOR DECOLONIZATION NS SCH (23:37)
[2024-03-03] MEDS: ENOXAPARIN NA (PORCINE) 40 MG/0.4 ML DISP.SYRIN SQ SCH (23:38)
[2024-03-03] MEDS: CHLORHEXIDINE GLUCONATE 4% CLEANSER FOR DECOLONIZATION TP SCH (23:38)
[2024-03-03] MEDS: INSULIN ASPART SLIDING SCALE (NOVOLOG) 1 VIAL SQ SCH (23:38)
[2024-03-03] MEDS: MIRTAZAPINE 15 MG TABLET (FP) NGT SCH (23:38)
[2024-03-03 23:50] LABS: N-TERMINAL BNP 1434.7 pg/ml (5-450)
[2024-03-04] MEDS: CARBIDOPA/LEVODOPA 25/100 TABLET (FP) NGT SCH (02:00)
[2024-03-04] MEDS: MIDAZOLAM IN 0.9 % SOD.CHLORID 100 MG/100 ML PLAST..BAG IVPB SCH (02:55)
[2024-03-04] MEDS: LACTATED RINGERS SOLUTION 1,000 ML/1,000 ML INFUS.BAG IV STA (06:40)
[2024-03-04 06:43] LABS: HEMATOCRIT 24.8 % (32.4-45.2); HEMOGLOBIN 7.6 GM/dL (10.7-15.3); MCH 23.1 pg (25.7-33.7); MCHC 30.6 g/dl (32.0-36.0); MEAN CELL VOLUME 75.5 fl (80-96); MEAN PLT VOLUME 6.8 fl (7.5-11.1); PLATELET COUNT 634 10^3/uL (134-434); RBC 3.28 M/mm3 (3.60-5.2); WHITE BLOOD COUNT 29.6 K/mm3 (4.0-10.0)
[2024-03-04 07:01] LABS: CHLORIDE 110 mmol/L (98-107); SODIUM 141 mmol/L (136-145)
[2024-03-04 07:03] LABS: CALCIUM 7.7 mg/dL (8.5-10.1); INR 1.23 (0.83-1.09); PROTHROMBIN TIME (PATIENT) 13.8 SEC (9.7-13.0)
[2024-03-04 07:04] LABS: ANION GAP 6 mmol/L (4-13); BLOOD UREA NITROGEN 17.5 mg/dL (7-18); CO2 25 mmol/L (21-32); GLUCOSE,RANDOM 138 mg/dL (74-106); MAGNESIUM 1.8 mg/dL (1.8-2.4)
[2024-03-04 07:06] LABS: ACTIVATED PTT 37.3 SECONDS (25.2-36.5)
[2024-03-04 07:07] LABS: CREATININE 0.5 mg/dL (0.55-1.3); PHOSPHOROUS 2.7 mg/dL (2.5-4.9); SGOT/AST 43 U/L (15-37); SGPT/ALT 15 U/L (13-61)
[2024-03-04 07:09] LABS: BILIRUBIN,TOTAL 0.3 mg/dL (0.2-1); TOT PROT 5.4 g/dl (6.4-8.2)
[2024-03-04 07:10] LABS: ALK PHOS 110 U/L (45-117)
[2024-03-04 07:19] LABS: LACTIC ACID 2.1 mmol/L (0.4-2.0)
[2024-03-04] MEDS: PANTOPRAZOLE SODIUM 40 MG VIAL IVPUSH SCH (09:47)
[2024-03-04] MEDS ORDERED: DULoxetine HCL 30 MG CAPSULE.DR PO SCH (10:00)
[2024-03-04] MEDS ORDERED: ENOXAPARIN NA (PORCINE) 40 MG/0.4 ML DISP.SYRIN SQ SCH (10:00)
[2024-03-04 10:26] LABS: ANISOCYTOSIS 0; HELMET CELLS 0; HOWELL-JOLLY BODIES 0; MACROCYTOSIS 0; OVALOCYTE 0; ROULEAU 0; SICKELED CELLS 0; TARGET CELLS 0; TEAR DROP CELLS 0; TOXIC GRANULATION 0
[2024-03-04] MEDS: DEXTROSE 5%-LACTATED RINGERS 1,000 ML IV SCH (10:48)
[2024-03-04] MEDS: POTASSIUM CHLORIDE ORAL LIQUID 20 MEQ/15 ML PO ONE (10:52)
[2024-03-04] MEDS: KCL 10 MEQ IVPB 10 MEQ/100 ML INFUS.BAG IVPB SCH (10:52)
[2024-03-04] MEDS: VANCOMYCIN/WATER FOR INJ (PEG) 1,000 MG/200 ML BAG IVPB SCH (16:03)
[2024-03-05] MEDS: MIDAZOLAM IN 0.9 % SOD.CHLORID 100 MG/100 ML PLAST..BAG IVPB SCH (06:21)
[2024-03-05 06:45] LABS: BASO % 0.2 % (0-2.0); LYMPH % 6.3 % (8-40); MCH 22.8 pg (25.7-33.7); MCHC 30.5 g/dl (32.0-36.0); MEAN CELL VOLUME 74.9 fl (80-96); MEAN PLT VOLUME 7.2 fl (7.5-11.1); MONO % 2.8 % (3.8-10.2); NEUT % 90.7 % (42.8-82.8); PLATELET COUNT 471 10^3/uL (134-434); RBC 2.93 M/mm3 (3.60-5.2); RDW 20.8 % (11.6-15.6); WHITE BLOOD COUNT 16.8 K/mm3 (4.0-10.0)
[2024-03-05 07:17] LABS: POTASSIUM 3.4 mmol/L (3.5-5.1)
[2024-03-05 07:19] LABS: MAGNESIUM 1.7 mg/dL (1.8-2.4)
[2024-03-05 07:20] LABS: ALBUMIN 1.9 g/dl (3.4-5.0)
[2024-03-05 07:22] LABS: PHOSPHOROUS 2.1 mg/dL (2.5-4.9)
[2024-03-05 07:23] LABS: CREATININE 0.5 mg/dL (0.55-1.3)
[2024-03-05 07:24] LABS: BILIRUBIN,TOTAL 0.2 mg/dL (0.2-1); TOT PROT 4.8 g/dl (6.4-8.2)
[2024-03-05] MEDS: MAGNESIUM 1GM/D5W - 1 GM/100 ML IVPB IVPB ONE (07:38)
[2024-03-05 08:05] LABS: HEMOGLOBIN 6.7 GM/dL (10.7-15.3)
[2024-03-05] MEDS: KCL 10 MEQ IVPB 10 MEQ/100 ML INFUS.BAG IVPB SCH (09:09)
[2024-03-05 09:35] LABS: ANISOCYTOSIS 2+; MACROCYTOSIS 0
[2024-03-06 06:47] LABS: ARTERIAL BLD GAS O2 SATURATION 98.9 % (95-98); ARTERIAL BLOOD GAS BASE EXCESS -3.1 mmol/L (-2-2); ARTERIAL BLOOD GAS PO2 141.1 mmHg (80-100); ARTERIAL BLOOD GAS pH 7.424 (7.350-7.450)
[2024-03-06 06:49] LABS: ALLENS TEST POSITIVE; VENT MODE A/C; VENT RATE 16
[2024-03-06 07:45] LABS: POTASSIUM 3.5 mmol/L (3.5-5.1)
[2024-03-06 07:49] LABS: ALBUMIN 1.7 g/dl (3.4-5.0); BLOOD UREA NITROGEN 15.7 mg/dL (7-18); CALCIUM 7.6 mg/dL (8.5-10.1); MAGNESIUM 1.8 mg/dL (1.8-2.4)
[2024-03-06 07:52] LABS: CREATININE 0.4 mg/dL (0.55-1.3); PHOSPHOROUS 1.5 mg/dL (2.5-4.9)
[2024-03-06 07:53] LABS: TOT PROT 4.6 g/dl (6.4-8.2)
[2024-03-06 07:54] LABS: BILIRUBIN,TOTAL 0.4 mg/dL (0.2-1)
[2024-03-06 08:12] LABS: BASO % 0.2 % (0-2.0); EOS % 0.3 % (0-4.5); HEMATOCRIT 23.9 % (32.4-45.2); HEMOGLOBIN 7.7 GM/dL (10.7-15.3); LYMPH % 6.5 % (8-40); MCH 24.3 pg (25.7-33.7); MCHC 32.1 g/dl (32.0-36.0); MEAN CELL VOLUME 75.6 fl (80-96); MEAN PLT VOLUME 7.6 fl (7.5-11.1); MONO % 4.8 % (3.8-10.2); NEUT % 88.2 % (42.8-82.8); PLATELET COUNT 368 10^3/uL (134-434); RBC 3.17 M/mm3 (3.60-5.2); RDW 20.2 % (11.6-15.6); WHITE BLOOD COUNT 14.2 K/mm3 (4.0-10.0)
[2024-03-06] MEDS: POTASSIUM PHOSPHATE 30 MM in SODIUM CHLORIDE 500 ML IVPB ONE (09:16)
[2024-03-06 12:25] VITALS: BMI 22.2
[2024-03-07 07:15] LABS: BASO % 0.3 % (0-2.0); EOS % 0.3 % (0-4.5); HEMATOCRIT 23.8 % (32.4-45.2); HEMOGLOBIN 7.5 GM/dL (10.7-15.3); LYMPH % 5.8 % (8-40); MCH 24.1 pg (25.7-33.7); MCHC 31.6 g/dl (32.0-36.0); MEAN CELL VOLUME 76.3 fl (80-96); MEAN PLT VOLUME 7.7 fl (7.5-11.1); MONO % 5.1 % (3.8-10.2); NEUT % 88.5 % (42.8-82.8); PLATELET COUNT 326 10^3/uL (134-434); RBC 3.12 M/mm3 (3.60-5.2); RDW 21.6 % (11.6-15.6); WHITE BLOOD COUNT 13.5 K/mm3 (4.0-10.0)
[2024-03-07 07:32] LABS: POTASSIUM 3.4 mmol/L (3.5-5.1)
[2024-03-07 07:36] LABS: ALBUMIN 1.5 g/dl (3.4-5.0); BLOOD UREA NITROGEN 12.3 mg/dL (7-18); CALCIUM 7.5 mg/dL (8.5-10.1); MAGNESIUM 1.7 mg/dL (1.8-2.4)
[2024-03-07 07:39] LABS: CREATININE 0.3 mg/dL (0.55-1.3); PHOSPHOROUS 1.9 mg/dL (2.5-4.9)
[2024-03-07 07:40] LABS: BILIRUBIN,TOTAL 0.4 mg/dL (0.2-1)
[2024-03-07 07:41] LABS: TOT PROT 4.4 g/dl (6.4-8.2)
[2024-03-07] MEDS: MAGNESIUM SULF 50% (8.12 MEQ/2 ML-1 GM VIAL) IVPB ONE (09:33)
[2024-03-07] MEDS ORDERED: PIPERACILLIN/TAZOB 4.5 GM 4.5 GM in DEXTROSE 5%-WATER 100 ML IVPB SCH (15:00)
[2024-03-07] MEDS: PIPERACILLIN/TAZOB 4.5 GM 4.5 GM in DEXTROSE 5%-WATER 100 ML IVPB SCH (15:29)
[2024-03-07] MEDS ORDERED: INSULIN ASPART SLIDING SCALE (NOVOLOG) 1 VIAL SQ ONE (18:07)
[2024-03-08] MEDS: PIPERACILLIN/TAZOB 4.5 GM 4.5 GM in DEXTROSE 5%-WATER 100 ML IVPB SCH (00:37)
[2024-03-08 06:32] LABS: ARTERIAL BLD GAS O2 SATURATION 97.7 % (95-98); ARTERIAL BLOOD GAS BASE EXCESS 3.6 mmol/L (-2-2); ARTERIAL BLOOD GAS PO2 99.6 mmHg (80-100); ARTERIAL BLOOD GAS pH 7.441 (7.350-7.450)
[2024-03-08 06:43] LABS: ALLENS TEST POSITIVE; VENT MODE A/C; VENT RATE 16
[2024-03-08 06:50] LABS: BASO % 0.2 % (0-2.0); EOS % 1.2 % (0-4.5); HEMATOCRIT 22.3 % (32.4-45.2); MCH 24.1 pg (25.7-33.7); MCHC 31.5 g/dl (32.0-36.0); MEAN CELL VOLUME 76.3 fl (80-96); MEAN PLT VOLUME 7.7 fl (7.5-11.1); MONO % 6.9 % (3.8-10.2); NEUT % 80.7 % (42.8-82.8); PLATELET COUNT 281 10^3/uL (134-434); RBC 2.92 M/mm3 (3.60-5.2); RDW 22.1 % (11.6-15.6); WHITE BLOOD COUNT 10.4 K/mm3 (4.0-10.0)
[2024-03-08 06:57] LABS: POTASSIUM 3.1 mmol/L (3.5-5.1)
[2024-03-08 07:02] LABS: BLOOD UREA NITROGEN 9.8 mg/dL (7-18)
[2024-03-08 07:03] LABS: ALBUMIN 1.4 g/dl (3.4-5.0)
[2024-03-08 07:05] LABS: PHOSPHOROUS 1.9 mg/dL (2.5-4.9)
[2024-03-08 07:06] LABS: CALCIUM 7.6 mg/dL (8.5-10.1); CREATININE 0.2 mg/dL (0.55-1.3)
[2024-03-08 07:07] LABS: BILIRUBIN,TOTAL 0.4 mg/dL (0.2-1); TOT PROT 4.3 g/dl (6.4-8.2)
[2024-03-08 09:13] LABS: ANISOCYTOSIS 2+; MACROCYTOSIS 1+
[2024-03-08] MEDS: POTASSIUM PHOSPHATE 30 MM in DEXTROSE 5%-WATER - 500 ML IVPB ONE (09:39)
[2024-03-08] MEDS: KCL 20 MEQ PREMIX BAG 20 MEQ/100 ML INFUS.BAG IVPB SCH (09:39)
[2024-03-08] MEDS: BANATROL PLUS POWDER PACKET PO SCH (14:51)
[2024-03-08 18:53] LABS: BASO % 0.2 % (0-2.0); HEMATOCRIT 23.6 % (32.4-45.2); HEMOGLOBIN 7.6 GM/dL (10.7-15.3); LYMPH % 6.3 % (8-40); MCH 24.3 pg (25.7-33.7); MCHC 32.1 g/dl (32.0-36.0); MEAN CELL VOLUME 75.5 fl (80-96); MEAN PLT VOLUME 7.6 fl (7.5-11.1); MONO % 6.7 % (3.8-10.2); NEUT % 85.8 % (42.8-82.8); PLATELET COUNT 358 10^3/uL (134-434); RBC 3.13 M/mm3 (3.60-5.2); RDW 22.6 % (11.6-15.6)
[2024-03-08] MEDS ORDERED: CALCIUM GLUCONATE 10% - 1,000 MG/10 ML VIAL ONE (20:16)
[2024-03-08] MEDS: ENOXAPARIN NA (PORCINE) 60 MG/0.6 ML DISP.SYRIN SQ SCH (21:58)
[2024-03-09] MEDS: DEXMEDETOMIDINE PREMIX 400 MCG/100 ML BAG IVPB SCH (00:33)
[2024-03-09 06:27] LABS: BASO % 0.3 % (0-2.0); HEMATOCRIT 21.7 % (32.4-45.2); HEMOGLOBIN 7.2 GM/dL (10.7-15.3); LYMPH % 12.8 % (8-40); MEAN CELL VOLUME 75.8 fl (80-96); MEAN PLT VOLUME 7.9 fl (7.5-11.1); NEUT % 78.9 % (42.8-82.8); PLATELET COUNT 270 10^3/uL (134-434); RBC 2.86 M/mm3 (3.60-5.2); RDW 22.6 % (11.6-15.6); WHITE BLOOD COUNT 8.5 K/mm3 (4.0-10.0)
[2024-03-09 06:45] LABS: POTASSIUM 4.1 mmol/L (3.5-5.1)
[2024-03-09 06:48] LABS: CALCIUM 7.7 mg/dL (8.5-10.1)
[2024-03-09 06:49] LABS: ALBUMIN 1.5 g/dl (3.4-5.0); BLOOD UREA NITROGEN 9.5 mg/dL (7-18); MAGNESIUM 1.9 mg/dL (1.8-2.4)
[2024-03-09 06:52] LABS: CREATININE 0.3 mg/dL (0.55-1.3); PHOSPHOROUS 2.5 mg/dL (2.5-4.9)
[2024-03-09 06:53] LABS: BILIRUBIN,TOTAL 0.4 mg/dL (0.2-1); TOT PROT 4.3 g/dl (6.4-8.2)
[2024-03-09] MEDS ORDERED: ENOXAPARIN NA (PORCINE) 60 MG/0.6 ML DISP.SYRIN SQ SCH (10:00)
[2024-03-09] MEDS: ENOXAPARIN NA (PORCINE) 40 MG/0.4 ML DISP.SYRIN SQ SCH (10:22)
[2024-03-09] MEDS ORDERED: FENTANYL IVPB 500 MCG/100 ML BAG IVPB SCH (22:30)
[2024-03-10] MEDS: FENTANYL NS IVPB 500 MCG/100 ML BAG IVPB SCH (00:20)
[2024-03-10 07:14] LABS: BASO % 0.4 % (0-2.0); EOS % 0.9 % (0-4.5); HEMATOCRIT 24.4 % (32.4-45.2); HEMOGLOBIN 7.8 GM/dL (10.7-15.3); LYMPH % 12.2 % (8-40); MCH 24.1 pg (25.7-33.7); MCHC 32.1 g/dl (32.0-36.0); MEAN CELL VOLUME 75.1 fl (80-96); MEAN PLT VOLUME 8.2 fl (7.5-11.1); MONO % 7.2 % (3.8-10.2); NEUT % 79.3 % (42.8-82.8); PLATELET COUNT 352 10^3/uL (134-434); RBC 3.25 M/mm3 (3.60-5.2); RDW 22.6 % (11.6-15.6); WHITE BLOOD COUNT 10.2 K/mm3 (4.0-10.0)
[2024-03-10 07:37] LABS: CALCIUM 8.2 mg/dL (8.5-10.1)
[2024-03-10 07:38] LABS: ALBUMIN 1.7 g/dl (3.4-5.0); BLOOD UREA NITROGEN 10.5 mg/dL (7-18)
[2024-03-10 07:41] LABS: CREATININE 0.3 mg/dL (0.55-1.3)
[2024-03-10 07:42] LABS: BILIRUBIN,TOTAL 0.7 mg/dL (0.2-1)
[2024-03-10 07:43] LABS: TOT PROT 4.7 g/dl (6.4-8.2)
[2024-03-10] MEDS: MORPHINE 100 MG/100 ML MG IVPB SCH (11:10)
[2024-03-11] MEDS: LORazepam 2 MG/ML SDV VIAL IVPUSH ONE (12:05)
[2024-03-11 13:19] VITALS: TEMP 96.2
[2024-03-11 13:20] VITALS: BP 148/37; PULSE 57; RESP 16
[2024-03-11] MEDS: GLYCOPYRROLATE 1 MG/5 ML VIAL IVPB ONE (13:23)
== END 2024-03-11 17:34 | disposition expired | DRG 870 ==
LOC: JER 14:18 → JERBED 16:03 → JICU 18:13
PROVIDERS: ADMIT Internal Medicine Pulmonary Disease; ATTEND Internal Medicine Pulmonary Disease
PROC: 5A1955Z Respiratory Ventilation, Greater than 96 Consecutive Hours (ICD-10-PCS; principal; 2024-03-03)
PROC: 06HM33Z Insertion of Infusion Device into Right Femoral Vein, Percutaneous Approach (ICD-10-PCS; 2024-03-03)
PROC: 02HV33Z Insertion of Infusion Device into Superior Vena Cava, Percutaneous Approach (ICD-10-PCS; 2024-03-05)
PROC: B548ZZA Ultrasonography of Superior Vena Cava, Guidance (ICD-10-PCS; 2024-03-05)
DX: A41.9 Sepsis, unspecified organism (principal); L89.154 Pressure ulcer of sacral region, stage 4; J69.0 Pneumonitis due to inhalation of food and vomit; J96.01 Acute respiratory failure with hypoxia; G93.41 Metabolic encephalopathy; J86.9 Pyothorax without fistula; R65.21 Severe sepsis with septic shock; C18.9 Malignant neoplasm of colon, unspecified; G93.1 Anoxic brain damage, not elsewhere classified; E11.9 Type 2 diabetes mellitus without complications; E78.5 Hyperlipidemia, unspecified; G20.A1 Parkinson's disease without dyskinesia, without mention of fluctuations; R13.10 Dysphagia, unspecified; L89.222 Pressure ulcer of left hip, stage 2; D64.9 Anemia, unspecified; M06.9 Rheumatoid arthritis, unspecified; G25.3 Myoclonus; I46.9 Cardiac arrest, cause unspecified
CPT/HCPCS: 0241U-QW; 36415; 36430; 36600; 71045-TC-FY; 80048; 80053; 81003; 82550; 82553; 82803; 82962; 83605; 83735; 83880; 84100; 84443; 84484; 85025; 85027; 85610; 85730; 86850; 86900; 86901; 86922; 87040; 87086; 93005; 93010; 94002; 99291; P9058